=== PATIENT | male | born 1950 | race Caucasian/White ===

== ENCOUNTER 2023-07-25 20:44 | Emergency (ER) | payer MEDICARE, SELFPAY ==
[2023-07-25] VITALS (18 sets, daily range): BP systolic 102–143; BP diastolic 75–92; PULSE 75–95; TEMP 36.5; O2SAT 94–97; BMI 26.6
--- NOTE | 2023-07-25 21:05 | CT_ITS ---
The [address] [address] Patient Name: KUSHAL LY MRN: [id number] date: 1950 Sex: M Assigned Patient Location: ER Current Patient Location: ED.[facility] Accession/Order Number: [id number] Exam Date: 07/25/2023 21:38 Report Date: 07/25/2023 21:56 At the request of: TAN MARKER Procedure: CT head/brain wo con Head CT 07/25/2023 8:38 PM CDT History: recent head injury/ headache. x Comparison: None Technique: Unenhanced CT imaging of the head. This CT exam was performed using one or more of the following dose reduction techniques: Automated exposure control, adjustment of the mA and/or KV according to patient size, or use of iterative reconstruction technique. Findings: There is no evidence of acute intracranial abnormality. Specifically, there is no evidence of acute hemorrhage, infarct, contusion, hydrocephalus, midline shift, or abnormal extra-axial collection. The calvarium is intact. The paranasal sinuses and mastoid air cells are clear. CT/CT head/brain wo con Impression: 1. No acute intracranial abnormality. Electronically authenticated by: JUDY GUAMAN Date: 07/25/2023 21:56
[2023-07-25 21:27] LABS: Basophils Absolute Auto 0.1 10^3/uL (0.0-0.1); Basophils Percent Auto 0.5 % (0.2-2.0); Eosinophils Absolute Auto 0.3 10^3/uL (0.0-0.7); Eosinophils Percent Auto 2.5 % (0.9-7.0); Hematocrit 50.6 % (42.0-54.0); Hemoglobin 16.9 g/dL (14.0-18.0); Immature Granulocytes Abs Auto 0.04 10^3/uL (0.00-0.03); Immature Granulocytes Pct Auto 0.4 % (0.0-0.5); Lymphocytes Absolute Auto 1.1 10^3/uL (1.2-3.8); Lymphocytes Percent Auto 10.1 % (20.5-60.0); Mean Corpuscular HGB Conc 33.4 g/dL (29.9-35.2); Mean Corpuscular Hemoglobin 30.5 pg (25.9-34.0); Mean Corpuscular Volume 91.2 fL (80.0-94.0); Mean Platelet Volume 10.8 fL (9.5-13.5); Monocytes Absolute Auto 1.1 10^3/uL (0.3-0.8); Monocytes Percent Auto 10.4 % (1.7-12.0); Neutrophils Absolute Auto 8.2 10^3/uL (1.4-6.5); Neutrophils Percent Auto 76.1 % (43.0-75.0); Platelet Count 124 10^3/uL (150-450); Red Blood Count 5.55 10^6/uL (4.70-6.10); Red Cell Distribution Width 12.3 % (11.0-15.0); White Blood Count 10.8 10^3/uL (4.0-11.0)
--- NOTE | 2023-07-25 21:28 | ED.GENADUL1 ---
HPI HPI - General Adult General Chief complaint: Headache Stated complaint: Headache Time Seen by Provider: 07/25/23 20:51 Source: patient and EMR Mode of arrival: ambulance Limitations: no limitations History of Present Illness HPI narrative: This 73-year-old male who has a history of squamous carcinoma of the scalp and is being seen at [facility] and had a fall on Sunday at home in his bedroom when he fell and struck a bedside stand and was seen at [facility] for evaluation of a headache. Patient has a global headache. He had a normal CT scan done at [facility] on Sunday. He developed a headache earlier today. He has not had a fever. He has no focal weakness numbness or tingling. He has not had any nausea or vomiting. He does not have a history of chronic headaches. He also complains of some blurred vision. His pupils are constricted upon arrival. His vision is grossly intact. He is tearful. He has no neck pain or stiffness. He denies any chest pain or shortness of breath. According to his OARRS report he was given prescription for 15 Percocet upon leaving the emergency department and 2 Percocet to take home at that time. Related Data Home Medications ?Medication ?Instructions ?Recorded ?Confirmed aspirin 81 mg capsule 81 mg PO DAILY 07/25/23 07/25/23 atorvastatin 40 mg tablet 40 mg PO DAILY 07/25/23 07/25/23 bumetanide 1 mg tablet 3 mg PO BID 07/25/23 07/25/23 febuxostat 40 mg tablet 40 mg PO .once daily 07/25/23 07/25/23 levetiracetam 1,000 mg tablet 1,000 mg PO Q12H 07/25/23 07/25/23 metoprolol succinate 25 mg 25 mg PO .once daily 07/25/23 07/25/23 tablet,extended release 24 hr oxycodone-acetaminophen 5 mg-325 1 tab PO Q6H PRN pain 07/25/23 07/25/23 mg tablet pantoprazole 40 mg tablet,delayed 40 mg PO .once daily 07/25/23 07/25/23 release potassium chloride 20 mEq 40 meq PO BID 07/25/23 07/25/23 tablet,extended release sitagliptin phosphate 100 mg 100 mg PO DAILY 07/25/23 07/25/23 tablet (Januvia) zanubrutinib 80 mg capsule 160 mg PO BID 07/25/23 07/25/23 (Brukinsa) Allergies Allergy/AdvReac Type Severity Reaction Status Date / Time Sulfa (Sulfonamide Allergy Mild Verified 07/25/23 20:52 Antibiotics) sulfamethoxazole Allergy Mild Verified 07/25/23 20:52 [From Bactrim] trimethoprim [From Bactrim] Allergy Mild Verified 07/25/23 20:52 clindamycin Allergy Unknown Verified 07/25/23 21:39 metformin Allergy Unknown Verified 07/25/23 21:39 Opioid HPI Opioid Management Most Recent Opioid Data: No Data to Display Review of Systems ROS Status of ROS 10 or more systems reviewed and unremarkable except as noted in history and below Exam Narrative Exam Narrative: Vital signs and Nursing Notes reviewed: Vital signs are stable. The patient is afebrile with a normal pulse, blood pressure is mildly elevated at 143/84, he is not hypoxic with pulse ox of 96% on room air General: Awake, alert, oriented, no acute distress, lying on the stretcher with his face covered with a towel, GCS 15, no respiratory distress HEENT: There is a large defect in the scalp on the right side and a midline laceration with an eschar formation at the hairline of the scalp, mucous membranes are moist and pink, eyes are clear, normal conjunctiva, vision is grossly intact, posterior pharynx is normal in appearance. Neck: Supple, no meningeal signs, no anterior or posterior cervical lymphadenopathy Chest: Lungs are clear to auscultation with good air entry, there is no wheezing rhonchi or rales appreciated no accessory muscle use, patient is speaking in complete sentences-no chest wall tenderness to palpation CVS: Regular rate and rhythm S1-S2, no murmurs rubs or gallops, pulses are brisk and equal bilaterally ABD: Soft, nondistended, nontender, no rebound guarding or rigidity, bowel sounds are normal, no pulsatile masses appreciated Extremities: Moving all extremities, no lower extremity tenderness or swelling noted, negative Homans' sign, pulses are brisk and equal bilaterally Skin: Normal in appearance without rash,pallor, petechiae or purpura Neuro: No focal deficits, speech is clear, upper and lower extremity strength and sensation is intact, vision is grossly intact, no facial droop noted Constitutional Vital Signs, click to edit/add: Last Vital Signs Temp 97.7 F 07/25/23 20:47 Pulse 78 07/25/23 23:01 Resp 12 07/25/23 23:01 BP 111/92 H 07/25/23 23:01 Pulse Ox 97 07/25/23 22:10 O2 Del Method Room Air 07/25/23 20:47 Course Vital Signs Vital signs: Vital Signs Temperature 97.7 F 07/25/23 20:47 Pulse Rate 83 07/25/23 20:47 Respiratory Rate 16 07/25/23 20:47 Blood Pressure 143/84 H 07/25/23 20:47 Pulse Oximetry 96 07/25/23 20:47 Oxygen Delivery Method Room Air 07/25/23 20:47 Temperature 97.7 F 07/25/23 20:47 Pulse Rate 78 07/25/23 23:01 Respiratory Rate 12 07/25/23 23:01 Blood Pressure 111/92 H 07/25/23 23:01 Pulse Oximetry 97 07/25/23 22:10 Oxygen Delivery Method Room Air 07/25/23 20:47 Medical Decision Making [facility] Narrative Medical decision making narrative: This 73-year-old male who had a closed head injury with scalp laceration on Sunday and has a history of squamous cell carcinoma of the scalp presents for evaluation of ongoing headache with blurred vision. He was discharged home with a prescription for Percocet. He had taken 2 Percocet around 10 AM earlier in the day but no medication since. He has not had a fever. He has no neck pain or stiffness. His neuroexam was normal. He was medicated with a dose of morphine and Zofran and IV fluids. CT scan of the head was ordered and is negative for acute findings. Routine labs were also ordered and reviewed. He has a normal white count. Hemoglobin is elevated at 16.9. BUN and creatinine are elevated at 37 and 2.2. 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 He does not know his baseline creatinine. He stated that he did not have any relief from his morphine and Zofran and was medicated with the Fioricet and Percocet with more clinical improvement. His neuroexam remained normal while in the emergency department and he was discharged home. He does have follow-up with Dr. Martin, neurology. I encouraged his to follow-up with her soon as possible for further evaluation and treatment and return to the emergency department for worsening symptoms, confusion, any other neurologic symptoms or as needed. Medical Records Medical records narrative: The [address] [address] [address] Scan Report Signed Patient: KUSHAL LY MR#: [id number] : 1950 Acct:[id number] Age/Sex: 73 / M ADM Date: 07/25/23 Loc: ER Attending Dr: Ordering Physician: Magda Maharaj Date of Service: 07/25/23 Procedure(s): CT head/brain wo con Accession Number(s): [id number] cc: LUIS ALBERTO DARNELL ~ The [place] [address] Patient Name: KUSHAL LY MRN: [id number] date: 1950 Sex: M Assigned Patient Location: ER Current Patient Location: ED.MAIN Accession/Order Number: [id number] Exam Date: 07/25/2023 21:38 Report Date: 07/25/2023 21:56 At the request of: MAGDA MAHARAJ Procedure: CT head/brain wo con Head CT 07/25/2023 8:38 PM CDT History: recent head injury/ headache. x Comparison: None Technique: Unenhanced CT imaging of the head. This CT exam was performed using one or more of the following dose reduction techniques: Automated exposure control, adjustment of the mA and/or KV according to patient size, or use of iterative reconstruction technique. Findings: There is no evidence of acute intracranial abnormality. Specifically, there is no evidence of acute hemorrhage, infarct, contusion, hydrocephalus, midline shift, or abnormal extra-axial collection. The calvarium is intact. The paranasal sinuses and mastoid air cells are clear. CT/CT head/brain wo con Impression: 1. No acute intracranial abnormality. Electronically authenticated by: JUDY GUAMAN Date: 07/25/2023 21:56 Lab Data Labs: Lab Results 07/25/23 Range/Units 21:16 WBC 10.8 (4.0-11.0) 10^3/uL RBC 5.55 (4.70-6.10) 10^6/uL Hgb 16.9 (14.0-18.0) g/dL Hct 50.6 (42.0-54.0) % MCV 91.2 (80.0-94.0) fL MCH 30.5 (25.9-34.0) pg MCHC 33.4 (29.9-35.2) g/dL RDW 12.3 (11.0-15.0) % Plt Count 124 L (150-450) 10^3/uL MPV 10.8 (9.5-13.5) fL Neut % (Auto) 76.1 H (43.0-75.0) % Lymph % (Auto) 10.1 L (20.5-60.0) % [place] % (Auto) 10.4 (1.7-12.0) % Eos % (Auto) 2.5 (0.9-7.0) % Baso % (Auto) 0.5 (0.2-2.0) % Neut # (Auto) 8.2 H (1.4-6.5) 10^3/uL Lymph # (Auto) 1.1 L (1.2-3.8) 10^3/uL [place] # (Auto) 1.1 H (0.3-0.8) 10^3/uL Eos # (Auto) 0.3 (0.0-0.7) 10^3/uL Baso # (Auto) 0.1 (0.0-0.1) 10^3/uL Abs Immat Gran (auto) 0.04 H (0.00-0.03) 10^3/uL Imm/Tot Granulo (auto) 0.4 (0.0-0.5) % PT 10.9 (9.0-11.6) sec INR 1.03 Sodium 134 L (136-145) mmol/L Potassium 3.7 (3.5-5.1) mmol/L Chloride 98 (98-107) mmol/L Carbon Dioxide 28.9 (21.0-32.0) mmol/L Anion Gap 10.8 BUN 37.0 H (7.0-18.0) mg/dL Creatinine 2.22 H (0.70-1.30) mg/dL Est GFR ( Amer) 35 L (>=60) Est GFR (Non-Af Amer) 29 L (>=60) BUN/Creatinine Ratio 16.7 Glucose 158 H (74-106) mg/dL Calcium 9.3 (8.5-10.1) mg/dL Total Bilirubin 0.7 (0.2-1.0) mg/dL AST 18 (15-37) U/L ALT 25 (16-63) U/L Alkaline Phosphatase 156 H (46-116) U/L Total Protein 8.1 (6.4-8.2) g/dL Albumin 3.7 (3.4-5.0) g/dL Globulin 4.4 g/dL Albumin/Globulin Ratio 0.8 Discharge Plan Discharge Stand Alone Forms: Portal Instructions Chief Complaint: Headache Clinical Impression: Headache, Acute on chronic renal insufficiency Patient Disposition: Home, Self-Care Time of Disposition Decision: 22:25 Condition: Good Prescriptions / Home Meds: No Action aspirin 81 mg capsule 81 mg PO DAILY bumetanide 1 mg tablet 3 mg PO BID febuxostat 40 mg tablet 40 mg PO .once daily levetiracetam 1,000 mg tablet 1,000 mg PO Q12H metoprolol succinate 25 mg tablet extended release 24 hr 25 mg PO .once daily pantoprazole 40 mg tablet,delayed release (DR/EC) 40 mg PO .once daily Januvia 100 mg tablet 100 mg PO DAILY atorvastatin 40 mg tablet 40 mg PO DAILY Brukinsa 80 mg capsule 160 mg PO BID potassium chloride 20 mEq tablet extended release 40 meq PO BID oxycodone-acetaminophen 5-325 mg tablet 1 tab PO Q6H PRN (Reason: pain) Print Language: [place] Instructions: Chronic Kidney Disease (ED), Acute Headache (ED) Additional Instructions: Follow up with Dr Martin as soon as possible and your family doctor regarding your kidney function Referrals: LUIS ALBERTO DARNELL [Primary Care Provider] - 1 week Discharge Date/Time: 07/25/23 23:46
[2023-07-25] MEDS: ONDANSETRON PF 4 MG/2 ML VIAL IV (21:30)
[2023-07-25] MEDS: 0.9 % SODIUM CHLORIDE 1,000 ML 1000 ML IV (21:30)
[2023-07-25] MEDS: MORPHINE SULFATE 4 MG/ML VIAL IV (21:30)
[2023-07-25 21:37] LABS: Alanine Aminotransferase 25 U/L (16-63); Albumin Globulin Ratio 0.8; Albumin Level 3.7 g/dL (3.4-5.0); Alkaline Phosphatase 156 U/L (46-116); Anion Gap 10.8; Aspartate Amino Transferase 18 U/L (15-37); BUN Creatinine Ratio 16.7; Bilirubin Total 0.7 mg/dL (0.2-1.0); Calcium 9.3 mg/dL (8.5-10.1); Carbon Dioxide 28.9 mmol/L (21.0-32.0); Chloride 98 mmol/L (98-107); Estimated GFR (African America 35 (>=60); Estimated GFR (Non-African Ame 29 (>=60); Globulin 4.4 g/dL; Glucose 158 mg/dL (74-106); INR 1.03; Potassium 3.7 mmol/L (3.5-5.1); Prothrombin Time 10.9 sec (9.0-11.6); Sodium 134 mmol/L (136-145); Total Protein 8.1 g/dL (6.4-8.2)
[2023-07-25] MEDS: BUTALB/ACETAMINOPHEN/CAFFEINE 50-325-40MG TABLET 1 TAB PO (22:11)
[2023-07-25] MEDS: OXYCODONE HCL/ACETAMINOPHEN 5MG/325MG 1 TAB PO (22:11)
--- NOTE | 2023-07-25 23:50 | ECG_ITS ---
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
== END 2023-07-25 23:46 | disposition home or self-care (01) ==
PROVIDERS: Emergency Provider Emergency Medicine; PCP Family Medicine
DX: R51.9 Headache, unspecified (principal); N18.9 Chronic kidney disease, unspecified; Z85.828 Personal history of other malignant neoplasm of skin
CPT/HCPCS: 36415; 70450; 80053; 85025; 85610; 93005; 96374; 96375; 99285; J2270; J2405

== ENCOUNTER 2023-08-02 18:42 | Emergency (ER) | payer MEDICARE, SELFPAY ==
[2023-08-02 18:47] VITALS: BP 139/79; PULSE 87; TEMP 36.6; O2SAT 98; BMI 26.6
[2023-08-02 18:49] VITALS: BP 139/79
[2023-08-02 19:24] VITALS: BP 107/74
[2023-08-02 19:26] LABS: Basophils Absolute Auto 0.1 10^3/uL (0.0-0.1); Basophils Percent Auto 0.6 % (0.2-2.0); Eosinophils Absolute Auto 0.3 10^3/uL (0.0-0.7); Eosinophils Percent Auto 3.2 % (0.9-7.0); Hematocrit 53.5 % (42.0-54.0); Hemoglobin 17.3 g/dL (14.0-18.0); Immature Granulocytes Abs Auto 0.09 10^3/uL (0.00-0.03); Immature Granulocytes Pct Auto 0.9 % (0.0-0.5); Lymphocytes Absolute Auto 0.9 10^3/uL (1.2-3.8); Lymphocytes Percent Auto 8.6 % (20.5-60.0); Mean Corpuscular HGB Conc 32.3 g/dL (29.9-35.2); Mean Corpuscular Hemoglobin 30.1 pg (25.9-34.0); Mean Corpuscular Volume 93.2 fL (80.0-94.0); Mean Platelet Volume 11.4 fL (9.5-13.5); Neutrophils Absolute Auto 7.6 10^3/uL (1.4-6.5); Neutrophils Percent Auto 76.7 % (43.0-75.0); Platelet Count 143 10^3/uL (150-450); Red Blood Count 5.74 10^6/uL (4.70-6.10); Red Cell Distribution Width 12.7 % (11.0-15.0); White Blood Count 9.9 10^3/uL (4.0-11.0)
--- NOTE | 2023-08-02 19:29 | ED_ITS ---
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 The patient is on chemotherapy through [facility]. He has been on this chemotherapy for the past 2 years. He was diagnosed with Waldenstr?m's approximately 14 years ago. The patient states that for the past 2 years he has had intermittent numbness in his hands and face. He had an episode today in the left side of his face. He states the symptoms usually last time the 30 minutes but today it lasted longer. He went to the [facility]'s emergency department but after 2 hours of not being seen he drove to this emergency department. He was recently seen by his neurologist, Dr. Martin. She put him on [facility] ER for bedtime for headaches. The patient is not taking that because he read the side effect profile and decided against it. At this time the numbness has resolved. He denies any chest pain or shortness of breath. He denies any headache, blurred vision, slurred speech confusion or other neurologic symptoms at this time. Related Data Home Medications ?Medication ?Instructions ?Recorded ?Confirmed aspirin 81 mg capsule 81 mg PO DAILY 07/25/23 07/25/23 atorvastatin 40 mg tablet 40 mg PO DAILY 07/25/23 07/25/23 bumetanide 1 mg tablet 3 mg PO BID 07/25/23 07/25/23 febuxostat 40 mg tablet 40 mg PO .once daily 07/25/23 07/25/23 levetiracetam 1,000 mg tablet 1,000 mg PO Q12H 07/25/23 07/25/23 metoprolol succinate 25 mg 25 mg PO .once daily 07/25/23 07/25/23 tablet,extended release 24 hr oxycodone-acetaminophen 5 mg-325 1 tab PO Q6H PRN pain 07/25/23 07/25/23 mg tablet pantoprazole 40 mg tablet,delayed 40 mg PO .once daily 07/25/23 07/25/23 release potassium chloride 20 mEq 40 meq PO BID 07/25/23 07/25/23 tablet,extended release sitagliptin phosphate 100 mg 100 mg PO DAILY 07/25/23 07/25/23 tablet (Januvia) zanubrutinib 80 mg capsule 160 mg PO BID 07/25/23 07/25/23 (Brukinsa) Allergies Allergy/AdvReac Type Severity Reaction Status Date / Time Sulfa (Sulfonamide Allergy Mild Verified 07/25/23 20:52 Antibiotics) sulfamethoxazole Allergy Mild Verified 07/25/23 20:52 [From Bactrim] trimethoprim [From Bactrim] Allergy Mild Verified 07/25/23 20:52 clindamycin Allergy Unknown Verified 07/25/23 21:39 metformin Allergy Unknown Verified 07/25/23 21:39 Review of Systems ROS Status of ROS 10 or more systems reviewed and unremark able except as noted in history and below Exam Narrative Exam Narrative: Vital signs and Nursing Notes reviewed: Patient is afebrile with a normal pulse, blood pressure is minimally elevated at 139/79, he is not hypoxic with pulse ox of 98% on room air General: Awake, alert, oriented, no acute distress, lying comfortably on the stretcher GCS 15 HEENT: Normocephalic, healing laceration to the frontal aspect of the scalp with no sign of infection, large defect on the right side of the scalp status post squamous cell carcinoma removal Neck: Supple, no meningeal signs, no carotid bruits appreciated Chest: Lungs are clear to auscultation with good air entry, there is no wheezing rhonchi or rales appreciated no accessory muscle use, patient is speaking in complete sentences-no chest wall tenderness to palpation CVS: Regular rate and rhythm S1-S2, no murmurs rubs or gallops, pulses are brisk and equal bilaterally ABD: Soft, nondistended, nontender, no rebound guarding or rigidity, bowel sounds are normal, no pulsatile masses appreciated Extremities: Moving all extremities, no lower extremity tenderness or swelling noted, negative Homans' sign, pulses are brisk and equal bilaterally Skin: Chronic hyperpigmentation of the arms, patient states this is related to chemotherapy Neuro: Speech is clear, there is no facial droop, vision is grossly intact, ton loree and uvula are midline, 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 Negative pronator drift. Constitutional Vital Signs, click to edit/add: Last Vital Signs Temp 97.9 F 08/02/23 18:47 Pulse 87 08/02/23 18:47 Resp 18 08/02/23 18:47 BP 139/79 08/02/23 18:47 Pulse Ox 98 08/02/23 18:47 O2 Del Method Room Air 08/02/23 18:47 Course Vital Signs Vital signs: Vital Signs Temperature 97.9 F 08/02/23 18:47 Pulse Rate 87 08/02/23 18:47 Respiratory Rate 18 08/02/23 18:47 Blood Pressure 139/79 08/02/23 18:47 Pulse Oximetry 98 08/02/23 18:47 Oxygen Delivery Method Room Air 08/02/23 18:47 Temperature 97.9 F 08/02/23 18:47 Pulse Rate 87 08/02/23 18:47 Respiratory Rate 18 08/02/23 18:47 Blood Pressure 139/79 08/02/23 18:47 Pulse Oximetry 98 08/02/23 18:47 Oxygen Delivery Method Room Air 08/02/23 18:47 MDM - Neuro Symptoms/Deficit MDM Narrative Medical decision making narrative: This 73-year-old male with a 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 Earlier today had an episode of facial numbness that did not resolve and he presented to [facility]'s emergency department but was not seen. He brought himself to this emergency department. Upon arrival his symptoms had resolved. He was seen by m yself last week for headache after striking his head and sustaining a forehead laceration and concussion. He had followed up with Dr. Martin his neurologist who thinks that his headaches and intermittent blurred vision are related to the concussion. The patient is on Keppra for seizures. She had ordered Depakote for him to take at night but he read the side effect profile and declined to take it. In the emergency department his neuroexam is normal. I spoke to Dr. Martin who suggested that if he has a headache he could have a 500 mg Depakote infusion. The patient does not have a headache at this time and his neuroexam is normal. She suggest that he follow-up with her again in the office. We discussed the possibility of the patient having side effects from his chemotherapy as paresthesias and neuropathy are often related to chemotherapeutic medications. I did discuss this with the patient who states that he has been told in the past that the side effects are likely related to hi s chemotherapy and at 1 point his chemotherapy was changed and the chemotherapeutic agent he is on now he has been on for the past 2 years. We will not repeat his CT scan at this time. CT angio is not an option because the patient has renal insufficiency and last had a creatinine of 2.2. He will be given IV fluids and repeat labs will be ordered at this time. The patient is in agreement with this plan. He is not having any pain. NIH stroke scale is zero. I reviewed his labs. His labs are essentially normal with an improvement in his creatinine today at 1.84. Last week it was 2.2. Patient was reevaluated and remains neurologically stable. His is at the bedside. She admits that she does not know what to do when he has the symptoms because she is afraid he is having a stroke. I explained to her that the symptoms may be related to his chemotherapy and it would be in his best interest to discuss it with Dr. Lindsay. I explained that if the side effects of the chemotherapy are tolerable and the chemotherapy is controlling his disease it is likely in his best interest to continue on the chemotherapy but if the side effects are becoming intolerable he may need another treatment modality. At this time the patient is agreeable with this and will be discharged home. Lab Data Labs: Lab Results 08/02/23 Range/Units 19:05 WBC 9.9 (4.0-11.0) 10^3/uL RBC 5.74 (4.70-6.10) 10^6/uL Hgb 17.3 (14.0-18.0) g/dL Hct 53.5 (42.0-54.0) % MCV 93.2 (80.0-94.0) fL MCH 30.1 (25.9-34.0) pg MCHC 32.3 (29.9-35.2) g/dL RDW 12.7 (11.0-15.0) % Plt Count 143 L (150-450) 10^3/uL MPV 11.4 (9.5-13.5) fL Neut % (Auto) 76.7 H (43.0-75.0) % Lymph % (Auto) 8.6 L (20.5-60.0) % [place] % (Auto) 10.0 (1.7-12.0) % Eos % (Auto) 3.2 (0.9-7.0) % Baso % (Auto) 0.6 (0.2-2.0) % Neut # (Auto) 7.6 H (1.4-6.5) 10^3/uL Lymph # (Auto) 0.9 L (1.2-3.8) 10^3/uL [place] # (Auto) 1.0 H (0.3-0.8) 10^3/uL Eos # (Auto) 0.3 (0.0-0.7) 10^3/uL Baso # (Auto) 0.1 (0.0-0.1) 10^3/uL Abs Immat Gran (auto) 0.09 H (0.00-0.03) 10^3/uL Imm/Tot Granulo (auto) 0.9 H (0.0-0.5) % Sodium 136 (136-145) mmol/L Potassium 3.7 (3.5-5.1) mmol/L Chloride 98 (98-107) mmol/L Carbon Dioxide 29.3 (21.0-32.0) mmol/L Anion Gap 12.4 BUN 38.0 H (7.0-18.0) mg/dL Creatinine 1.84 H (0.70-1.30) mg/dL Est GFR ( Amer) 44 L (>=60) Est GFR (Non-Af Amer) 36 L (>=60) BUN/Creatinine Ratio 20.7 Glucose 195 H (74-106) mg/dL Calcium 9.1 (8.5-10.1) mg/dL Total Bilirubin 0.5 (0.2-1.0) mg/dL AST 20 (15-37) U/L ALT 32 (16-63) U/L Alkaline Phosphatase 166 H (46-116) U/L Troponin I High Sens 12.7 (4.0-76.1) pg/mL Total Protein 8.3 H (6.4-8.2) g/dL Albumin 3.6 (3.4-5.0) g/dL Globulin 4.7 g/dL Albumin/Globulin Ratio 0.8 Discharge Plan Discharge Stand Alone Forms: Portal Instructions Chief Complaint: Neuro Symptoms/Deficit Clinical Impression: Paresthesia Patient Disposition: Home, Self-Care Time of Disposition Decision: 20:30 Condition: Good Prescriptions / Home Meds: No Action aspirin 81 mg capsule 81 mg PO DAILY bumetanide 1 mg tablet 3 mg PO BID febuxostat 40 mg tablet 40 mg PO .once daily levetiracetam 1,000 mg tablet 1,000 mg PO Q12H metoprolol succinate 25 mg tablet extended release 24 hr 25 mg PO .once daily pantoprazole 40 mg tablet,delayed release (DR/EC) 40 mg PO .once daily Januvia 100 mg tablet 100 mg PO DAILY atorvastatin 40 mg tablet 40 mg PO DAILY Brukinsa 80 mg capsule 160 mg PO BID potassium chloride 20 mEq tablet extended release 40 meq PO BID oxycodone-acetaminophen 5-325 mg tablet 1 tab PO Q6H PRN (Reason: pain) Print Language: Portuguese Instructions: Paresthesia (ED) Referrals: LUIS ALBERTO DARNELL [Primary Care Provider] - 1 week
[2023-08-02 19:30] VITALS: BP 104/66
[2023-08-02 19:39] LABS: Alanine Aminotransferase 32 U/L (16-63); Albumin Globulin Ratio 0.8; Albumin Level 3.6 g/dL (3.4-5.0); Alkaline Phosphatase 166 U/L (46-116); Anion Gap 12.4; Aspartate Amino Transferase 20 U/L (15-37); BUN Creatinine Ratio 20.7; Bilirubin Total 0.5 mg/dL (0.2-1.0); Calcium 9.1 mg/dL (8.5-10.1); Carbon Dioxide 29.3 mmol/L (21.0-32.0); Chloride 98 mmol/L (98-107); Estimated GFR (African America 44 (>=60); Estimated GFR (Non-African Ame 36 (>=60); Globulin 4.7 g/dL; Glucose 195 mg/dL (74-106); Potassium 3.7 mmol/L (3.5-5.1); Sodium 136 mmol/L (136-145); Total Protein 8.3 g/dL (6.4-8.2)
[2023-08-02] MEDS: 0.9 % SODIUM CHLORIDE 1,000 ML 100 ML IV (19:40)
[2023-08-02 19:41] LABS: Troponin I High Sensitivity 12.7 pg/mL (4.0-76.1)
[2023-08-02 20:01] VITALS: BP 116/74
[2023-08-02 20:30] VITALS: BP 115/78
--- NOTE | 2023-08-02 22:14 | ECG_ITS ---
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
== END 2023-08-02 21:02 | disposition home or self-care (01) ==
PROVIDERS: Emergency Provider Emergency Medicine; PCP Family Medicine
DX: R20.2 Paresthesia of skin (principal); C88.0 Waldenstrom macroglobulinemia; Z79.899 Other long term (current) drug therapy
CPT/HCPCS: 36415; 80053; 84484; 85025; 93005; 99284

== ENCOUNTER 2024-12-26 03:29 | Emergency (ER) | payer MEDICARE, SELFPAY ==
--- OUTSIDE RECORDS SUMMARY | 2024-12-15 10:40 | XMS_ITS | Encounter Summary ---
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 Name Role Phone Denise Cade MD Unavailable [phone] Denise Cade MD Primary Care Provider [phone] Terrie Martin DO Unavailable [phone] Sarkis Raymundo MD Unavailable Denise Alarcon RN Unavailable [phone] Reason for Referral * Imaging (Routine) - AuthorizedSpecialtyDiagnoses / ProceduresReferred By ContactReferred To ContactRadiology Diagnoses Spinal stenosis at L4-L5 level Procedures MR lumbar spine wo contrast David Booker MD [address] [facility] [address] [address] Phone: tel: fax: [facility] [address] [place] [address] Phone: tel: fax: Referral IDStatusReasonStart DateExpiration DateVisits RequestedVisits [id number] Reason for Visit * ReasonCommentsthoracic outlet syndrome Encounter Details DateTypeDepartmentCare Team (Latest Contact Info)Enlaqxshpmy24/03/2025 10:40 AM ESTOffice Visit [facility] [address] [place] [address] David Booker MD [address] [facility] [address] [place], [place] [id number] Seizures (HCC) (Primary Dx); Gastroesophageal reflux disease with esophagitis without hemorrhage; Thoracic outlet syndrome of left thoracic outlet; Spinal stenosis at L4-L5 level Social History Tobacco UseTypesPacks/DayYears UsedDateSmoking Tobacco: FormerCigarettes Smokeless Tobacco: NeverAlcohol UseStandard Drinks/WeekCommentsNever0 (1 standard drink = 0.6 oz pure alcohol)Caffeine intake: 1 cups per dayPHQ-2Answer Date RecordedPatient Health Questionnaire-2 [id number] and Gender InformationValueDate RecordedSex Assigned at BirthNot on fileLegal SexMale 04/26/2022 7:10 PM EDTGender DjqlqjqpYlkk77/15/2023 7:10 PM EDTSexual OrientationNot on filedocumented as of this encounter Last Filed Vital Signs Vital SignReadingTime TakenCommentsBlood Nuckzlqe685/7611 10:37 AM EST Pulse--Temperature--Respiratory Rate--Oxygen Saturation--Inhaled Oxygen Concentration--Hdiwgw28.7 kg (178 lb)12/15/2024 10:37 AM OXCWijalj604.3 cm (5' 9 )12/15/2024 10:37 AM ESTBody Mass Index26.29102/15/2024 10:37 AM ESTdocumented in this encounter Progress Notes * David Booker MD - 12/15/2024 10:40 AM EST Subjective Harpreet Martinez is a 74 y.o. male who presents for thoracic outlet syndrome and post concussion syndrome. Patient was in hospital a couple weeks ago for pneumonia. States he was SOB. States they admitted him and released him on the . No episodes since January last year. Nothing since he was in hospital and hit him all of a sudden. History of Present Illness The patient presents for evaluation of thoracic outlet syndrome, Waldenstrom's macroglobulinemia, and diabetes mellitus type 2. He has been experiencing episodes of sudden onset weakness in his arm, which have been absent since01/2024. These episodes typically occur when he is seated, prompting him to change his seating arrangement. He also reports a sensation of muscle contraction in his face during these episodes. He hasundergone multiple stroke evaluations, all of which have returned negative results. He has not noticed any significant changes in his condition following the reduction of his Keppra dosage. He is currently on a regimen of Keppra 250 mg twice daily, although he occasionally misreads the label and isunsure if he takes the correct dosage. He has previously received injections for his condition, which he found beneficial. He has been performing home exercises as part of his therapy regimen. He is awaiting scheduling of a brain MRI at [facility]. 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 His Waldenstrom's numbers are elevated, leading to the discontinuation of his chemotherapy drug, Brukinsa. He is scheduled for a tooth extraction on but must remain off Brukinsa for 5 days prior to the procedure due to potential bleeding risks. He is currently awaiting consultation with Dr. Cuenca at the [facility] regarding his Waldenstrom's treatment. He is a type 2 diabetic with well-controlled blood sugar levels. He experienced a fall from his bed on 12/13/2024, resulting in a stiff neck. He also reports a recent episode of leg weakness, which he attributes to his hospitalization. He underwent back surgery [id number] and 2013. PAST SURGICAL HISTORY: Back surgery in 2009 and 2013 MEDICATIONS CURRENT MEDS: Keppra 250 mg Oral Once daily Pantoprazole Oral PREVIOUS MEDS: Keppra 250 mg twice daily Oral Twice daily Reason for Discontinuation: Dosage reduced Brukinsa Reason for Discontinuation: High numbers and bleeding risk before tooth removal Review of Systems Constitutional: Negative for chills, diaphoresis, fatigue and fever. HENT: Negative for ear pain, tinnitus and trouble swallowing. Eyes: Negative for photophobia and visual disturbance. Respiratory: Negative for cough and shortness of breath. Cardiovascular: Negative for palpitations and leg swelling. Gastrointestinal: Negative for abdominal pain and nausea. Genitourinary: Negative for difficulty urinating and urgency. Musculoskeletal: Negative for arthralgias, back pain, myalgias, neck pain and neck stiffness. Neurological: Negative for tremors, weakness, light-headedness and numbness. Psychiatric/Behavioral: Negative for agitation, confusion and suicidal ideas. Objective Height 5' 9 , weight 178 lb. Physical Exam Cranial Nerve Examination CN XI: 5/5 head turn and 5/5 shoulder shrug bilaterally. Motor Examination Strength: Weakness noted in the arm post-episode. Hand strength: able to curl fingers and push thumbs up. Vital Signs: Blood pressure: 120/68 mmHg. Neck: Neck is very stiff. Results Imaging - PET scan: No radiotracer tracer, lymph nodes unchanged Assessment & Plan 1. Thoracic Outlet Syndrome. Symptoms suggest thoracic outlet syndrome, particularly affecting the arm. A low-dose cortisone regimen of 2 mg tablets will be initiated for 10 days, with doses taken in the morning and at noon. Blood sugar levels will be monitored during this period. If there is no improvement, injections into the thoracic outlet will be considered. An MRI of the lumbar spine will be ordered to further investigate the cause of the leg weakness. 2. Waldenstrom's Macroglobulinemia. The patient reports high numbers associated with Waldenstrom's macroglobulinemia. He has been takenoff Brukinsa due to an upcoming tooth extraction and the need to avoid bleeding risks. Consultationwith Dr. Cuenca at the [facility] is pending for further management. If numbers remain high, alternative medications like Eliquis may be considered. 3. Diabetes Mellitus Type 2. Blood sugar levels are reported to be well-controlled. The patient will continue his current diabetes management plan. Blood sugar levels will be monitored closely during the cortisone treatment period. 4. Medication Management. A prescription for pantoprazole will be provided. The patient will continue taking Keppra 250 mg twice a day for one more week, after which it will be discontinued. Follow-up The patient will follow up in 6 to 8 weeks. 5. I will start the patient on dexamethasone 2 mg tablets to be taken in a tapering fashion over the next 7 to 9 days. I will see if this helps reduce inflammation and improves neurological function. 6. I will obtain an MRI of the lumbar spine to assess for a structural lesion including degenerative lumbar spine disease which may be contributing to the patient's symptoms. This clinical note was created utilizing [employer] system. All information has beenthoroughly reviewed, corrected as necessary, and authenticated by the provider to ensure accuracy and completeness. On occasion, [employer] ambient documentation system erroneously drops words or replaces aspoken word with a similar sounding word. Please notify with any questions or concerns regarding this clinical note. documented in this encounter Plan of Treatment DateTypeDepartmentCare Team (Latest Contact Info)Dvjboqsccdy02/22/2025 10:00 AM ESTOffice Visit [facility] [address] [place] [address] David Booker MD [address] [facility] [address] [place] [id number] 03/30/2025 8:30 AM ESTProcedure Visit [facility] [address] [facility] [place] [phone] Sarkis Lo DPD[place] [address] [place] [address] NameTypePriorityAssociated DiagnosesOrder ScheduleMR lumbar spine wo contrast ImagingRoutine Spinal stenosis at L4-L5 level Expected: 12/15/2024, Expires: 12/15/2025documented as of this encounter Visit Diagnoses Diagnosis Seizures (HCC)- Primary Other convulsions Gastroesophageal reflux disease with esophagitis without hemorrhage Thoracic outlet syndrome of left thoracic outlet Spinal stenosis at L4-L5 level documented in this encounter Additional Health Concerns AssessmentNoted TimePHQ-9 Depression Total Score: 2:00 PM EDT documented as of this encounter Care Teams Team MemberRelationshipSpecialtyStart DateEnd Date Denise Cade MD [address] [place], [place] [phone] PCP - Tino OR02/12/21 Denise Cade MD [address] [place] [address] PCP - GeneralFamily Medicine07/13/22 Terrie Martin DO [address] [place] [address] Referring PhysicianNeurology05/08/23 Sarkis Raymundo MD [address] [place] [address] Referring PhysicianNeurolog04/01/24 Denise Alarcon, RN [address] [place] [address] Registered NurseFamily Medicine07/24/24documented as of this encounter
--- OUTSIDE RECORDS SUMMARY | 2024-12-16 10:20 | XMS_ITS | Encounter Summary ---
Author Organization [facility] Address [address] [place] [address] Care Team Providers Care Tea Taster Name Role Phone Denise Cade MD Unavailable [phone] Denise Cade MD Primary Care Provider [phone] Terrie Martin DO Unavailable Sarkis Raymundo MD Unavailable [phone] Denise Alarcon RN Unavailable [phone] Reason for Visit * ReasonCommentsHospital Follow-up Encounter Details DateTypeDepartmentCare Team (Latest Contact Info)Euginxzfzud44/04/2025 10:20 AM ESTOffice Visit [facility] [address] [place] [address] Denise Cade MD [address] [place] [address] Type 2 diabetes mellitus without complication, with long-term current use of insulin (HCC) (PrimaryDx); Stage 3b chronic kidney disease (CMS-HCC); Pneumonia due to infectious organism, unspecified laterality, unspecified part of lung; Waldenstrom macroglobulinemia not having achieved remission (HCC); Radha-Adan syndrome Social History Tobacco UseTypesPacks/DayYears UsedDateSmoking Tobacco: FormerCigarettes Smokeless Tobacco: NeverAlcohol UseStandard Drinks/WeekCommentsNever0 (1 standard drink = 0.6 oz pure alcohol)Caffeine intake: 1 cups per dayPHQ-2Answer Date RecordedPatient Health Questionnaire-2 [id number] and Gender InformationValueDate RecordedSex Assigned at BirthNot on fileLegal SexMale 04/26/2022 7:10 PM EDTGender RaftbsguHlur08/15/2023 7:10 PM EDTSexual OrientationNot on filedocumented as of this encounter Last Filed Vital Signs Vital SignReadingTime TakenCommentsBlood Ofsjedms651/6011 10:19 AM EST Gdykw7990/04/2025 10:19 AM ESTTemperature--Respiratory Rate--Oxygen Saturation 96%12/16/2024 10:19 AM ESTInhaled Oxygen Concentration--Uvsrrj41.3 kg (166 lb) 12/16/2024 10:19 AM SGFXuxiwt020.3 cm (5' 9 )12/16/2024 10:19 AM ESTBody Mass Index24.51102/16/2024 10:19 AM ESTdocumented in this encounter Progress Notes * Denise Cade MD - 12/16/2024 10:20 AM ESTAssociated Problem(s): Stage 3b chronic kidney disease (CMS-HCC) Orders: Basic metabolic panel; Future * Denise Cade MD - 12/16/2024 10:20 AM ESTAssociated Problem(s): Pneumonia Orders: XR chest 2 views; Future * Denise Cade MD - 12/16/2024 10:20 AM ESTAssociated Problem(s): Radha-Adan syndrome Per neuro and oncology. Has an MRI tomorrow. * Denise Cade MD - 12/16/2024 10:20 AM EST Images from the original note were not included. Subjective ?Quick Links Last Note in Specialty Snapshot Edit RFV/CC Edit Screenings Current Meds Patient ID: Harpreet Martinez is a 74 y.o. male who presents for Hospital Follow-up. HPI Flowsheet Row Patient Outreach from 12/08/2024 in [facility] with Denise Alarcon RN Hospital Information ED, Hospital or Halfway Facility Discharge? Hospital Patient has been contacted within two business days of discharge Yes Diagnosis DX: Pneumonia, pulmonary htn, dyspnea on exertion. Discharge Date 12/05/24 Discharged To: Home Setting Discharge Hospital [facility] Engagement Call Start Time 1457 Admission Date 12/02/24 Medications Discharge medications reviewed and reconciled from hospital? Yes [New meds: Aspirin 81mg daily, sildenafil 20mg 3 x daily x 30 days azithromycin 500mg daily x 5 dys Cefuroxime axetil 500mg 2 x daily x 5 days.] Is the patient having any side effects they believe may be caused by any medication additions or changes? No Does the patient have all medications ordered at discharge? Yes Nursing Interventions Nurse provided patient education Nursing Interventions Nurse provided patient education Appointments Does the patient have a primary care provider? Yes [Pt has follow up with PCP Dr Cade 12/16/24 at 10:20am] Nursing Interventions Verified appointment date/time/provider Does the patient have any upcoming specialty appointments? Yes [[facility] for PET Scan 12/10/[address] Hilario 12/11/24 at 11:15am Cardiology Dr Durham 01/12/25 at 9:30am] Nursing Interventions Advised patient to keep appointment Self Management Does patient have home health? no Patient Teaching Does the patient have access to their discharge instructions? Yes Nursing Interventions Reviewed instructions with patient What is the patient's perception of their health status since discharge? Improving Is the patient/caregiver able to teach back the hierarchy of who to call/visit for symptoms/problems? PCP, Specialist, Home Health nurse, Urgent Care, ED, 911 Yes Wrap Up Wrap Up Additional Comments Pt to [facility] 12/02/24 - 12/05/24. He presented to the ER with progressive sob and pleuritic left side pain for over a week and a half. Also reported worsening swelling in left leg He was eval, treated and dc to home. He had labs and echocardiogram which revealed severe pulmonary htn. DX: Pneumonia, pulmonary htn, dyspnea on exertion. New meds: Aspirin 81mg daily, sildenafil 20mg 3 x daily x 30 days azithromycin 500mg daily x 5 dys Cefuroxime axetil 500mg 2 x daily x 5 days. Pt has follow up with PCP Dr Cade 12/16/24 at 10:20am [facility] for PET Scan 12/10/[address] Hilario 12/11/24 at 11:15am Cardiology Dr Durham 01/12/25 at 9:30am Call End Time 1515 History of Present Illness The patient presents for evaluation of pneumonia, diabetes mellitus, lymphedema, and dental issues. He continues to experience chest tightness, although it has lessened. He reports the presence of blood in his mucus when he coughs deeply. He was admitted to the hospital on 12/02/2024. He has completed his course of antibiotics. He has not yet received the RSV vaccine but has been vaccinated against pneumonia and influenza. His cancer markers have increased, leading Dr. Flynn to discontinue his Brukinsa medication. He was scheduled for a tooth extraction but has decided to postpone the procedure due to concerns about potential coughing during the procedure. Dr. Flynn is currently consulting with Dr. Cuenca regarding an alternative medication. He has been advised to limit his fluid intake to 1500 mL per day, which he finds challenging. His GFR was recorded as 42 during his hospital stay. He is currently on a steroid regimen and has been informed that this could potentially elevate his blood sugar levels. His sensor is due for replacement today, but he prefers to delay this until after his MRI. He has requested a blood sugar test during this visit and plans to monitor his levels via fingerstick until he can replace the sensor. He requires a refill of his Januvia prescription. He has an appointment with Dr. Flores at [facility] in [place] next week and hopes to obtain a prescription for a compression sock for his leg. He has an MRI of the brain scheduled for tomorrow. He saw Dr. Booker yesterday, who prescribed Keppra 250 mg and advised him to stop it in a week from yesterday. Dr. Booker also plans to administer injections in his shoulders. His symptoms worsen at night, and his speech deteriorates, requiring him to consciously think about his words. He was tested for a stroke after experiencing numbness in his arm and face, but the results were negative. He has not had an episode since 01/2024. He also experienced difficulty opening and closing his left eye one night. The numbness even went down into the legwhen he came home from the hospital. Dr. Booker thinks maybe something might be going in the back because of the leg. He does not sleep well, often waking up at 3:00 or 5:00 AM. He continues to struggle with speech and word-finding difficulties, which are intermittent. He had difficulty swallowing this morning, but it improved as the day progressed. He feels he lacks control over his hand strength, often dropping papers he is holding. His pain prescription ran out about a month ago, but he has since resumed it. He fell out of bed on Sunday night, injuring his head and back. Sleep: He does not sleep well, often waking up at 3:00 or 5:00 AM. ?Quick Review Review Full History Edit History Meds - Current Medications[1] --- PMH - Atherosclerosis of [place] coronary artery without angina pectoris Atrial fibrillation (HCC) Atrial fibrillation (HCC) Atypical angina Benign essential hypertension Radha-Adan syndrome Brachial neuritis or radiculitis Carpal tunnel syndrome Cervicalgia Chronic kidney disease, stage 2 (mild) Chronic rhinitis Diabetes (HCC) Difficulty walking Disturbance of skin sensation Encounter for other specified aftercare Gastro-esophageal reflux disease without esophagitis Hypertension Lymphangitis Migraines Mixed hyperlipidemia Muscle spasm Nonrheumatic aortic valve stenosis Other sequelae of cerebral infarction Paroxysmal atrial fibrillation (HCC) Plantar wart, left foot Primary malignant neoplasm of blood vessel (HCC) Radiculopathy, lumbosacral region Seizure disorder (HCC) Seizures (HCC) SOB (shortness of breath) Squamous cell skin cancer 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 Avoid pulling in long tables of results. Comment on relevant results to support your medical decision making. BP 118/60 Pulse 84 Ht 5' 9 Wt 166 lb BMI 24.51 kg/m?? Physical Exam Physical Exam General Appearance: Normal. Vital signs: Within normal limits. HEENT: Within normal limits. Respiratory: Clear to auscultation, no wheezing, rales or rhonchi. Cardiovascular: Regular rate and rhythm, no murmurs, rubs, or gallops. Back, Musculoskeletal: Tightness in neck and shoulder muscles with limited range of motion. Extremities: edema of all 4 extremities, stockings in place, palpable pulses. Skin: Warm and dry, no rash. Neurological: Patient demonstrates difficulty with speech and word-finding. Noted tightness in neckand shoulder muscles with limited range of motion in the neck. Psychiatric: Normal. ?Quick Links Full Problem List Allergy Asthma Cardiology CHF Diabetes GI Headache Hypertension Assessment & Plan Type 2 diabetes mellitus without complication, with long-term current use of insulin (HCC) Orders: SITagliptin (Januvia) 100 MG tablet; Take 1 tablet (100 mg) by mouth Daily POCT glucose Stage 3b chronic kidney disease ([facility]-HCC) Orders: Basic metabolic panel; Future Pneumonia due to infectious organism, unspecified laterality, unspecified part of lung Orders: XR chest 2 views; Future Waldenstrom macroglobulinemia not having achieved remission (HCC) Seeing Dr Vik. Garcia-Adan syndrome Per neuro and oncology. Has an MRI tomorrow. Assessment & Plan 1. Pneumonia: - Tightness in the chest persists but is not as severe. Coughing produces blood in mucus. - PET scan shows pneumonia in the right lower lobe. - Follow-up chest x-ray will be conducted today to ensure complete resolution. - Antibiotics course has been completed. 2. Diabetes Mellitus: - Blood sugar will be tested via fingerstick today. Blood draw for metabolic panel will be done to check kidney function. - Januvia refill will be provided. 3. Lymphedema: - [facility] discuss prescription for compression sock for the leg. 4. Dental issues: - Advised to consult with the dentist regarding the necessity of tooth extraction due to recent pneumonia and ongoing coughing and swallowing difficulties. 5. Medication Management: - Currently on 250 mg of Keppra, which will be discontinued in a week. Steroids prescribed, which may affect blood sugar levels. Blood sugar will be monitored with finger pokes until a new sensor is placed. 6. Unspecified numbness: - Numbness persists, affecting speech, swallowing, and hand strength. - MRI of the brain scheduled for tomorrow to investigate neurological symptoms. [1] aspirin 81 MG EC tablet atorvastatin (Lipitor) 40 MG tablet bumetanide (Bumex) 1 MG tablet cholecalciferol (Vitamin D-3) 50 MCG (2000 UT) tablet Continuous Glucose Rod Hanger (FreeStyle Fracisco 3 [place]) device Continuous Glucose Sensor (FreeStyle Fracisco 3 Plus Sensor) misc dexAMETHasone (Decadron) 2 MG tablet empagliflozin (Jardiance) 25 MG febuxostat (Uloric) 40 MG tablet ferrous sulfate 325 (65 Fe) MG tablet Januvia 100 MG tablet levETIRAcetam (Keppra) 250 MG tablet OneTouch Ultra test strip pantoprazole (ProtoNix) 40 MG EC tablet potassium chloride CR (K-Tab) 20 MEQ ER tablet sildenafil (Viagra) 50 MG tablet thiamine (Vitamin B-1) 100 MG tablet zanubrutinib (Brukinsa) 80 MG chemo capsule azithromycin (Zithromax) 500 MG tablet cefuroxime (Ceftin) 500 MG tablet documented in this encounter Plan of Treatment DateTypeDepartmentCare Team (Latest Contact Info)Vwcmpwstlyz00/22/2025 10:00 AM ESTOffice Visit [facility] [address] [place] [address] David Booker MD [address] [place] [address] 03/30/2025 8:30 AM ESTProcedure Visit [facility] [address] [place] [id number] Sarkis Lo, DPM [address] [place], [place] [id number] documented as of this encounter Procedures Procedure NamePriorityDate/TimeAssociated DiagnosisCommentsPOCT GLUCOSERoutine 12/16/2024 10:59 AM EST Type 2 diabetes mellitus without complication, with long-term current use of insulin (HCC) BASIC METABOLIC RUIJIFmqxgpt91/04/2025 10:58 AM EST Stage 3b chronic kidney disease ([facility]-HCC) documented in this encounter Results * XR chest 2 views (12/16/2024 11:25 AM EST)Anatomical RegionLateralityModality ChestRadiographic ImagingSpecimen (Source)Anatomical Location / Laterality Collection Method / VolumeCollection TimeReceived Time12/16/2024 5:06 PM EST Impressions 12/16/2024 5:07 PM EST No acute radiographic findings. ELECTRONICALLY SIGNED BY: Tom Green MD Narrative 12/16/2024 5:07 PM EST EXAMINATION/TECHNIQUE: XR CHEST 2 VIEWS HISTORY: Pneumonia. COMPARISON: 03/26/2023. RESULT: No distinct focal consolidation. No large pleural effusion. No pneumothorax. Stable cardiomediastinal silhouette with postsurgical changes. No acute osseous findings. Degenerative changes. Median sternotomy. Procedure Note Tom Green MD - 12/16/2024 EXAMINATION/TECHNIQUE: XR CHEST 2 VIEWS HISTORY: Pneumonia. COMPARISON: 03/26/2023. RESULT: No distinct focal consolidation. No large pleural effusion. Nopneumothorax. Stable cardiomediastinal silhouette with postsurgicalchanges. No acute osseous findings. Degenerative changes. Mediansternotomy. IMPRESSION: No acute radiographic findings. ELECTRONICALLY SIGNED BY: Tom Green MD Authorizing ProviderResult TypeResult StatusJeanette KLINE XR PROCEDURES Final Result * POCT glucose (12/16/2024 10:59 AM EST)ComponentValueRef RangeTest Method Analysis TimePerformed AtPathologist SignatureGlucose Blood, KHP368et/dL Specimen (Source)Anatomical Location / LateralityCollection Method / Volume Collection TimeReceived TimeBloodCapillary blood specimen / Iecotiw6412/16/2024 10:59 AM EST Narrative Authorizing ProviderResult TypeResult StatusDenise Cade MDPOINT OF CARE TEST ENTER/EDIT ORDERABLESFinal Result * (ABNORMAL) Basic metabolic panel (12/16/2024 10:58 AM EST)ComponentValueRef RangeTest MethodAnalysis TimePerformed AtPathologist LsxdrrmdzBoqzyvk870(H)65 - 99 mg/dLQUESTComment: ? Fasting reference interval For someone without known diabetes, a glucose value >125 mg/dL indicates that they may have diabetes and this should be confirmed with a follow-up test. BUN33(H)7 - 25 mg/dLQUESTCreatinine1.64(H)0.70 - 1.28 mg/lRUBFDZRYOM67(L)> OR = 60 mL/min/1.66l0JZJEGVVS/CREATININE IEUDU620 - 22 (calc)FREKOZfwfmt040(L)135 - 146 mmol/LQUESTPotassium, Bld4.13.5 - 5.3 mmol/JDHJAVBmxdbipp49(L)98 - 110 mmol/LQUESTCarbon Nzkwbmq3018 - 32 mmol/LQUESTCalcium9.38.6 - 10.3 mg/dLQUEST Specimen (Source)Anatomical Location / LateralityCollection Method / Volume Collection TimeReceived TimeBloodVenous blood specimen / Etmwjwg7012/16/2024 10:58 AM EST12/16/2024 10:58 AM EST Narrative Resulting Agency Comment Performing Organization Information ?Site ID: [id number] ?Name: [facility] ?Address: [address] [place] [id number] ?Director: Placido Mas MD Authorizing ProviderResult TypeResult StatusDenise Cade MDGREENWOOD COUNTY [facility]ITAL BLOOD ORDERABLESFinal ResultPerforming OrganizationAddressCity/State/ZIP CodePhone Number QUEST documented in this encounter Visit Diagnoses Diagnosis Type 2 diabetes mellitus without complication, with long-term current use of insulin (HCC)- Primary Stage 3b chronic kidney disease (CMS-HCC) Pneumonia due to infectious organism, unspecified laterality, unspecified part of lung Waldenstrom macroglobulinemia not having achieved remission (HCC) Radha-Adan syndrome Other specified disorder of nervous system Pneumonia due to infectious organism, unspecified laterality, unspecified part of lung documented in this encounter Additional Health Concerns AssessmentNoted TimePHQ-9 Depression Total Score: 2:00 PM EDT documented as of this encounter Care Teams Team MemberRelationshipSpecialtyStart DateEnd Date Denise Cade MD [address] [place] [address] PCP - [place] MA02/12/21 Denise Cade MD [address] [place] [address] PCP - GeneralFamily Medicine07/13/22 Terrie Martin DO [address] [place] [address] Referring PhysicianNeurology05/08/23 Sarkis Raymundo MD [address] [place] [address] Referring PhysicianNeurolog04/01/24 Denise Alarcon, JUAN JOSE [address] [place] [address] Registered NurseFamily Medicine07/24/24documented as of this encounter
--- OUTSIDE RECORDS SUMMARY | 2024-12-16 11:00 | XMS_ITS | Encounter Summary ---
Author Organization [facility] Address [address] [place] [address] Care Team Providers Care Icebox Man Name Role Phone Denise Cade MD Unavailable [phone] Denise Cade MD Primary Care Provider [phone] Terrie Martin DO Unavailable [phone] Sarkis Raymundo MD Unavailable [phone] Denise Alarcon RN Unavailable [phone] Encounter Details DateTypeDepartmentCare Team (Latest Contact Info)Abfzodnagta01/04/2025 11:00 AM ESTAncillary Procedure [facility] [address] [place] [address] Pneumonia due to infectious organism, unspecified laterality, unspecified part of lung Social History Tobacco UseTypesPacks/DayYears UsedDateSmoking Tobacco: FormerCigarettes Smokeless Tobacco: NeverAlcohol UseStandard Drinks/WeekCommentsNever0 (1 standard drink = 0.6 oz pure alcohol)Caffeine intake: 1 cups per dayPHQ-2Answer Date RecordedPatient Health Questionnaire-2 [id number] and Gender InformationValueDate RecordedSex Assigned at BirthNot on fileLegal SexMale 04/26/2022 7:10 PM EDTGender BwpihoftRofz07/15/2023 7:10 PM EDTSexual OrientationNot on filedocumented as of this encounter Plan of Treatment DateTypeDepartmentCare Team (Latest Contact Info)Vudvddqimhv59/22/2025 10:00 AM ESTOffice Visit [facility] [address] [place] [address] David Booker MD [address] [facility] [facility] [address] [address] 03/30/2025 8:30 AM ESTProcedure Visit [facility] [address] [id number] Sarkis Lo, DPDallas [address] [place], [place] [id number] documented as of this encounter Procedures Procedure NamePriorityDate/TimeAssociated DiagnosisCommentsXR CHEST 2 VIEWS Lahdytm0612/16/2024 11:25 AM EST Pneumonia due to infectious organism, unspecified laterality, unspecified part of lung documented in this encounter Results * XR [...] Tom Green MD Authorizing ProviderResult TypeResult StatusJeanette Cade MDIMG XR PROCEDURES Final Result documented in this encounter Visit Diagnoses Diagnosis Pneumonia due to infectious organism, unspecified laterality, unspecified part of lung documented in this encounter Additional Health Concerns AssessmentNoted TimePHQ-9 Depression Total Score: 2:00 PM EDT documented as of this encounter Care Teams Team MemberRelationshipSpecialtyStart DateEnd Date Denise Cade MD [address] [place] [address] PCP - [place] MA02/12/21 Denise Cade MD [address] [place] [address] PCP - GeneralFamily Medicine07/13/22 Terrie Martin DO [address] [place] [address] Referring PhysicianNeurology05/08/23 Sarkis Raymundo MD [address] [place] [address] Referring PhysicianNeurolog04/01/24 Denise Alarcon, JUAN JOSE [address] [place] [address] Registered NurseKnoxville Hospital And Clinicsly Medicine07/24/24documented as of this encounter
--- OUTSIDE RECORDS SUMMARY | 2024-12-19 02:39 | XMS_ITS | Continuity of Care Document ---
Author Organization [facility] Address [address] [place] [address] Phone Care Team Providers Care Sparker [employer]cher Name Role Phone Denise Black MD Primary Care Pr ovider Maci Temple MD Attending Provider Acacia Long DO Emergency Provider [phone] Geoff Edmondson MD Admit Provider Boone Bautista MD Attending Provider [phone] Sulaiman Gomez MD Attending Provider Reynold Herbert DO Emergency Provider Care Teams Patient Care Team Team Status: Active Member Role/Relationship Status Dates Denise Cade MD Primary Care Provide r Active Visit Care Team Team Status: Inactive Member Role/Relationship Status Dates Denise Cade MD Primary Care Provider Active Start: November End: November 25Andres Cerrato ProviderActiveStart: November 25, 2024 End: November 25, 2024 Visit Care Team Team Status: Inactive Member Role/Relationship Status Dates Denise Cade MD Primary Care Provider Active Start: November End: December 05, 2024Janice L Rice , DOEmergency ProviderActiveStart: December 02, 2024 End: December 05, 2024Nishnickie Edmondson MDAdmit ProviderActiveStart: December 02, 2024 End: December 05, 2024Velasqueznicholas MoctezumaMARC jonesttending ProviderActiveStart: December 02, 2024 End: December 05, 2024 Visit Care Team Team Status: Inactive Member Role/Relationship Status Dates Denise Cade MD Primary Care Provider Active Start: December End: December 17, 2024Vivecatalino Liz MARC Gomezttending ProviderActiveStart: December 17, 2024 End: December 17, 2024 Patient Care Team Team Status: Inactive Member Role/Relationship Status Dates Denise Cade MD Primary Care Provider Active Start: December End: December 19lexdoron Herbert DOEmergenhuy ProviderActiveStart: December 19, 2024 End: December 19, 2024 Chief Complaint and Reason for Visit Chief Complaint Admit Date 6 month f/u November 25, 2024 9 :35am chest pain, sob December 02, 2024 1 2:38pm G96.89 C83.00 D80.1 D61.89 N18.32 Novemb er 2024 7:57am Numbness December 19, 2024 4 :00am Reason for Visit Admit Date Chronic kidney disease, stage 3b November 25, 2024 9:35am 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 November 25, 2024 9:35am Hyperparathyroidism November 25, 2024 9 :35am Hyperuricemia November 25, 2024 9 :35am Iron deficiency November 25, 2024 9 :35am Volume overload November 25, 2024 9 :35am Waldenstrom's macroglobulinemia November 25, 2024 9:35am Anemia November 25, 2024 9 :35am Coronary artery disease November 25 9:35am Hypokalemia November 25, 2024 9 :35am Waldenstrom's macroglobulinemia December 02, 2024 12:38pm Chest pain December 02, 2024 1 2:38pm Hypokalemia December 02, 2024 1 2:38pm Pneumonia December 02, 2024 1 2:38pm Reason for Referral Type Reason(s) Provider Provider Contact Information Femi lux Address Start Date FOLLOW UP FOR PET SCANFollow up and labsFOLLOW UP FOR PET SCANCCF [facility] CareWork Phone: [phone] [facility] [id number] Durham MDEmail: [email or web address] Phone: [phone] [address] [address]Lux have been scheduled for a follow up appointment for the following date and time, please call to reschedule if needed.Denise Cade MDWork Phone: [phone] [facility] [address]Wosfwc up and labsVivek Patricia Hill MDWork Phone: [phone] [facility] [address]Dszmwvfb Duyen Cade MDWork Phone: [phone] [facility] [address] Health Concerns Concerns Start Date A [facility] screening has identified you as FRAIL or AT RISK FOR FRAILTY. This puts you at a higher risk for infection, illness, falls, and other injuries. Here are four ways to help you reduce your risk of frailty: 1. IDENTIFY EARLY SIGNS OF FRAILTY ??? Discuss contributing factors and concerns with your doctor 2. BE ACTIVE ??? Walking and light strengthening exercises will help reduce weakness 3. EAT WELL ??? Aim for three healthy meals a day that are high in protein 4. THINK POSITIVE ??? Keep your mind active by being sociable and continuing to learn References: Stay Strong: Four Ways to Beat the Frailty Risk https://www.[facility].org/health/orwpgpbb-gsh-ieblhrowfy/fxuq-qejcuc-cxva- kjtf-kh-loup-the-fra ilty-risk Allergies, Adverse Reactions, Alerts Allergen Type Severity Reaction Last Updated Verified Status clindamycin Allergy Mild Itching December 19, 2024 4:20am Yes Active metformin Allergy Unknown Nausea December 19, 2024 4:20am Yes Active Sulfa (Sulfonamide Antibiotics) Allergy Unknown Itching December 19, 2024 4:20am Yes Active sulfamethoxazole Allergy Unknown Hives December 19, 2024 4:20am Yes Active trimethoprim Allergy Unknown Hives December 4:20am Yes Active Social History Smoking Status Status Start Date End Date Date of Observa tion Ex-smoker (finding) December 19, 2024 5:37am Observation Status Observation Response Date of Response Legal Sex Male (finding) Sex Assigned At BirthMaleMay 1950 Social History Assessments Assessment Value Date Recorded SDOH Follow up December 05, 2024 11:52amQuestionAnswerDate RecordedHas the SDOH screening changed since admission?NOctober 2024 11:52am Assessment Value Date Recorded SDOH Follow up December 03, 2024 6:12pmQuestionAnswerDate RecordedHas the SDOH screening changed since admission?NOctober 2024 6:12pm Family History Relationship Condition Age at Onset Recorded Date/T shaylee mother Myocardial infarction Unknown fatherMyocardial infarctionUnknownCoronary artery thrombosisUnknownbrother Malignant neoplasmUnknownfatherDeceasedUnknownmotherHypertensionUnknownDeceased Unknown Problems Active Problems Problem Diagnosis/Recorded Date Onset Date Status C trinoaugie Chronic kidney disease, stage 3b November 13, 2023 9:26am Unknown Active Waldenstrom's macroglobulinemiaApril 2020 3:34pmUnknownActiveProblem List clean-up per request of Phys. EHR CmteRenal massDecember 2023 7:59pm UnknownActiveVaricose veins of both legs with edemaMarch 2023 1:02pm UnknownActiveHyperparathyroidismApril 2024 8:11amUnknownActive HyperuricemiaOctober 2023 9:33amUnknownActiveDiabetic nephropathy associated with type 2 diabetes mellitusOctober 2023 9:26amUnknownActive Left arm weaknessNovember 2024 7:06amUnknownActiveNeck painNovember 2024 7:06amUnknownActiveVolume overloadOctober 2023 9:27amUnknownActiveIron deficiencyOctober 2023 9:27amUnknownActiveInactive/Resolved Problems Problem Diagnosis/Recorded Date Onset Date Status C trinoaugie LAISHA (acute kidney injury) July 17, 2022 9:04am Unknown Resolved Problem Li st clean-up per request of Phys. EHR Cmte Impaired mobility and activities of daily living August 22, 2023 2:08pm Unknown Resolved EpistaxisJune 2020 12:06pmUnknownResolvedProblem List clean-up per request of Phys. EHR CmteShortness of breathMay 2022 8:16amUnknownResolvedProblem List clean-up per request of Phys. EHR CmteDizzinessJuly 2023 11:30pm UnknownResolvedDizzinessAugust 2023 3:04pmUnknownResolvedDysarthriaJuly 2023 11:30pmUnknownResolvedDiabetesApril 2020 3:32pmUnknownResolved Problem List clean-up per request of Phys. EHR CmteLacerationSeptember 2022 12:04pmUnknownResolvedAcute dyspneaApril 2022 10:32amUnknownResolved Problem List clean-up per request of Phys. EHR CmteFall from slip, trip, or stumbleJune 2023 4:22amUnknownResolvedConcussionJune 2023 4:22am UnknownResolvedCoronary artery diseaseSeptember 2021 2:24pmUnknownResolved Problem List clean-up per request of Phys. EHR CmteCHF (congestive heart failure)May 28, 2022 10:32amUnknownResolvedProblem List clean-up per request of Phys. EHR CmtePostcardiotomy syndromeApril 2022 2:55amUnknownResolved Problem List clean-up per request of Phys. EHR CmteAnemiaApril 2022 11:27amUnknownResolvedProblem List clean-up per request of Phys. EHR CmteAortic stenosisSeptember 2021 3:00pmUnknownResolvedProblem List clean-up per request of Phys. EHR CmteAtaxiaJuly 2023 11:30pmUnknownResolvedContusion June 02, 2023 10:37pmUnknownResolvedTIA (transient ischemic attack)November 02, 2021 2:24pmUnknownResolvedProblem List clean-up per request of Phys. EHR CmteSuperficial laceration of scalpJune 2023 4:22amUnknownResolvedElevated troponinSeptember 2021 2:20amUnknownResolvedProblem List clean-up per request of Phys. EHR CmteLeptomeningeal enhancement on MRI of brainSeptember 2021 2:00pmUnknownResolvedProblem List clean-up per request of Phys. EHR CmteMicrocytic anemiaApril 2022 11:28amUnknownResolvedProblem List clean- up per request of Phys. EHR CmteAcute bronchitisDecember 2016 7:11pm UnknownResolvedProblem List clean-up per request of Phys. EHR CmteScreening for colorectal cancerJune 2020 9:47amUnknownResolvedProblem List clean-up per request of Phys. EHR CmteS/P CABG x 1April 2022 2:55amUnknownResolved Problem List clean-up per request of Phys. EHR CmteAcute left-sided weakness November 02, 2021 6:41pmUnknownResolvedProblem List clean-up per request of Phys. EHR CmteStrain of neck muscleJanuary 2017 10:55pmUnknownResolved Problem List clean-up per request of Phys. EHR CmteParoxysmal atrial fibrillationSeptember 2021 2:19amUnknownResolvedProblem List clean-up per request of Phys. EHR CmteHistory of Waldenstrom's macroglobulinemiaAugust 2023 3:05pmUnknownResolvedHistory of colonic polypsApril 2022 11:28am UnknownResolvedProblem List clean-up per request of Phys. EHR CmteGERD (gastroesophageal reflux disease)May 28, 2020 3:36pmUnknownResolvedProblem List clean-up per request of Phys. EHR CmteBarretts esophagusApril 2022 11:28amUnknownResolvedProblem List clean-up per request of Phys. EHR CmteChest painOctober 2024 12:09pmUnknownResolvedChest painSeptember 2021 1:11amUnknownResolvedProblem List clean-up per request of Phys. EHR Cmte HypertensionSeptember 2021 6:41pmUnknownResolvedProblem List clean-up per request of Phys. EHR CmtePneumoniaOctober 2024 12:09pmUnknownResolved DehydrationJune 2022 9:04amUnknownResolvedProblem List clean-up per request of Phys. EHR CmteHypokalemiaOctober 2024 12:09pmUnknownResolvedHypokalemia October 31, 2021 2:20amUnknownResolvedProblem List clean-up per request of Phys. [facility] CmteSprain of footApril 2023 10:37pmUnknownResolved Medications Medication Status Dose Units Route Directions Qty Days Refills S tart Date Stop Date End Date Reason(s) Instructions Adherence Pantoprazole 40 mg tablet,delayed release (DR/EC) Discontinued 40 MG PO Once 30 30 11 Apr 2023 1:07pm August 20, 2023 5:31pmDextromethorphan Polistirex (Delsym 12 Hour) 30 mg/5 mL Suspension,Extended Rel 12 TgYdadyozuocna24FLMDU78D as needed for CoughDecember 2016 12:00amJanuary 2017 9:19pmAtorvastatin 20 mg TabletDiscontinued 20MGPODailyDecember 2016 12:00amSeptember 2021 10:16am Dextromethorphan-Guaifenesin (Coricidin Hbp) 10-200 mg CapsuleDiscontinued February 05, 2017 12:00amJanuary 2017 9:19pmAmlodipine 10 mg Tablet Uehgkhcdnhao68WRUVRsnijKwdlelnf 2016 12:00amApril 2020 3:43pm Pantoprazole 40 mg Tablet,Delayed Release (Dr/Ec)Hfzsajqwpoqf09SXVVBeiyk morning February 05, 2017 12:00amMarch 2023 1:07pmIbuprofen (Motrin Ib) 200 mg BveihvCwtlnzxhngoc289ROOLL6A as needed for PainDecember 2016 12:00am March 05, 2017 9:19pmAspirin 81 mg Tablet,ZbiylrvzXzvgcsmnqbgy39TUSSMbqth February 05, 2017 12:00amSept2021 8:00amON HOLD X 1 WEEKLosartan 100 mg QbnoueLfqjabgfhsbo158NEKADjxaaJcrraizh 25th, 2017 12:00amApril 2020 3:45pmAtenolol 50 mg EpmrgsKflgviockxas96PXITChdglAbwpdkej 25th, 2017 12:00am November 01, 2021 10:16amIbrutinib (Imbruvica) 140 mg PdumphbKpvlhpszpmjl358 MGPODailyDece2016 12:00amSept2021 10:15amOn Hold: per Dr LindsayPrednisone 20 mg dpmffpHgbcsiioucjf56JSWYQltew757Dpeptjys 25th, 2017 12:002016 12:002016 12:03amadminister with food or milkPromethazine-Codeine 6.25-10 mg/5 mL rpoliTqvxhrgtvthd9SXZLM8J as needed for nollx1179AjdqzyjqFebruary 05, 2017 12:00amJanuary 2017 9:17pm Azithromycin (Zithromax) 250 mg bzqxorMorbkpxhbgmr373MCCTZlrss056Mcduuikk 25th, 2017 12:00amDecember 2016 12:00ce2016 12:03amstart on day 2 of therapyFlecainide 100 mg AmpwqnYgejrzkygznz754LKGEN49S as needed for Atrial FibrillationJun2020 11:00pmSept2021 10:16amFluticasone Furoate-Vilanterol (Breo Ellipta) 200-25 mcg/dose Blister With Device Nikaxddonxet6VLRALNJCBKRRLW77UNily 3rd, 2021 11:00pmJune 2020 11:12am Losartan-Hydrochlorothiazide 100-12.5 mg wmvvutWpwkttyxkepr0HXKHUAsfiuNxewr 2020 11:00pmSept2021 10:16amSitagliptin Phosphate (Januvia) 100 mg ddhkqfYmdwzl395XTOTQwsmdXoomt 2020 11:00pmUnknownHydrocortisone 1 % RxdcbFmidttrzxnfi8XNIYNPXDIZJFBEcosp times qnqyi97Fygrqhvaz 27th, 2022 11:00pm May 26, 2022 6:44amAspirin (Children's Aspirin) 81 mg Tablet,Chewable Aqubhucbrabg54EDCGQekly38Uijoaiafs 2021 11:00pmMarch 2023 10:08amon hold for a week r/t scheduled lumbar punctureMetoprolol Tartrate 37.5 mg Tablet Kgfjgblgjisw47THBWCpulp qdwll2356Baqogigmp 27th, 2022 11:00pmApril 2022 6:44amLevetiracetam 500 mg BqyqmtNenlpxgkjdjq1316OCWWAyjiz wovep055Qlrqffpkq 27th, 2022 11:00pmMarch 2023 10:04amAcetaminophen 650 mg Tablet Vghdycbyouxm361TSBXM5Z as needed for PainApril 2022 11:00pmJuly 11, 2022 9:09amDocusate Sodium (Colace) 100 mg ApuvwzgCwlkjymhdffc158ZYIWLpnnuOmouk 2022 11:00pmJuly 11, 2022 9:09amOxycodone 5 mg XnuzwrAysjqztjhriw3KPPFH5Q as needed for PainApril 2022 11:00pmMay 2022 9:10amZanubrutinib 80 mg StlbaktEokvgz421AOWOPtadt dailyApril 2022 11:00pmUnknownLosartan 50 mg guftsdDtzpntaukmdc02JPQBIynik dailyApril 2022 6:43amMarch 2023 10:05amMetoprolol Tartrate 37.5 mg puogocFojrdtlrbude70.5MGPOTwice dailyApril 2022 6:43amApril 2023 10:25pmPotassium Chloride 10 mEq tablet extended otvwmbhJmyevzdsknie71TRDIATrqhnNfh 29th, 2023 11:00pmOctober 2023 9:13amPotassium Chloride 10 mEq tablet extended elgnefbQxhlxejzpizb57TIUVHSrwww July 10, 2022 11:00pmMay 2022 9:11amPotassium Chloride 10 mEq tablet extended oakmltbHcpjzzraukkj85NNBWPCrjnmLhv 29th, 2023 11:00pmMay 2022 9:10amFebuxostat 40 mg gvbnbbDpvbjq62NRLIAeqtoTyuc 2023 11:00pmUnknown Oxycodone-Acetaminophen (Percocet) 5-325 mg tabletDiscontinued1 - 2TABPOEvery 6 hours as needed for cnbo9042Zdep 2023July 2023 5:30pmConcussion Fall on same level from slipping, tripping or stumbling Concussion with loss of consciousness status unknown, initial encounter Ondansetron 4 mg tablet,xvnoskigmuirbnJcmxwaghaoso0POBSU0H as needed for nausea and oihzjihd980Laqn 2023 11:00pmJuly 2023 5:30pmPantoprazole 40 mg tablet,delayed release (DR/EC)Ijcnypzkomna44AMOOXgwdnEhci 2023 11:00pm November 25, 2024 8:39amMethocarbamol 750 mg NpnuhgVkmqniyzwtep917UGMNZ1U as needed for PainJanuary 2017 12:00amApril 2020 3:44pmFluticasone Furoate-Vilanterol (Breo Ellipta) 200-25 mcg/dose Blister With Device Isccokwyjnve5GLFBJSIAQWFQYCezetTbovulh 2017 12:00amApril 2020 3:43pm Oxycodone-Acetaminophen (Percocet) 5-325 mg nffxdvSqscsnkswtgc8SSXFYA0N as needed for sayo9958Yoxeiiq 2017January 2017 12:00amJanuary 2017 12:03amStrain of muscle, fascia and tendon at neck level, initial encounter Fluticasone Furoate-Vilanterol (Breo Ellipta) 200-25 mcg/dose Blister With RheetiKlpfcuodpojr8FZWIXFIQJWFXJJezfvUmnwqbiww 18th, 2022 11:00pmSeptember 2021 11:30amLosartan 50 mg LgymrpEgkfnkxvqcib237FYXTJkuud737808Ralrhsijz 19th, 2022 11:00pmApril 2022 6:44amAtorvastatin 40 mg DjzgwyTkcapu83ZMDOGtvdm zpjnalc983803Ffyinsdxt 19th, 2022 11:00pmUnknownAmiodarone 200 mg Tablet Cwgwwseybqzp219VFTCSlyve insmp942772Ftrbttrrr 19th, 2022 11:00pmApril 2022 6:44amMetoprolol Tartrate 50 mg AccxgwEomreelowctp27WBCILotfx onkou210571 October 31, 2021 11:00pmSeptember 2021 2:55pmBumetanide 1 mg tablet Gcujagdlykzt1VHHPZfpop41878Jiwhs 2022 11:00pmJune 2022 8:42amNaproxen Sodium (Aleve) 220 mg sajhjkTgckiwcdmrxv239LKMBZewnz daily as needed for pain30 140April 2022 11:00pmJune 2022 8:42amLosartan 50 mg tablet Hmoihmwibtrf96RAXOIloaz2752Rafta 2022 11:00pmJune 2022 8:41am Metolazone 2.5 mg tabletDiscontinued2.5MGPODailyJune 2022 11:00pmMarch 2023 10:05amBumetanide 2 mg kwrqahPlpyfvmsjcls5LIXAFxlicYjhn 2022 11:00pmMarch 2023 10:08amNaproxen Sodium (Aleve) 220 mg Capsule Flcteuqvjubd681KESTAfutvJeqq 2022 11:00pmMarch 2023 10:05amBumetanide 1 mg jbdetdPjpyaupavecu7DGDYHqzozolIzfh 2022 8:42amMarch 2023 10:08am Bumetanide 2 mg yjcxlyPosgxcajsvle0CNUKFshxc dailyMarch 2023 10:03amApril 2023 10:24pmBumetanide 1 mg aqfdqvQhzhrq2PGQVFxlov dailyMarch 2023 10:04amUnknownMetoprolol Succinate 25 mg tablet extended release 24 hr Dqzetzovyguj01.5MGPODailyApril 2023 11:00pmOctober 2023 9:17am Gabapentin 100 mg nuoscceUajtbmzhmtjj054CYHGGjvts dailyApril 2023 11:00pm July 23, 2023 2:31amIbuprofen 800 mg guzeemIeuonzhzjhnf667LPANOgcyq times daily as needed for Dknr225Cklne2023 11:00pmJuly 2023 5:30pm Metoprolol Succinate 25 mg tablet extended release 24 gfYzwoalvmfuyl23.5MGPO.Q48 November 13, 2023 9:14amApril 2024 8:08amMeclizine (Antivert) 50 mg tablet Axxxutqovjmz72DMJSEehtk daily as needed for ffeeyecry308Udagng 2023 11:00pm November 13, 2023 9:15amOndansetron 4 mg tablet,sbapqptlzyiizoMopxveyxammm1AFTM Every 8 qualz3543Oqgtna 2023 11:00pmOctober 2023 9:15amLevetiracetam 250 mg eabmbeOetdmf115DCNLAwfbp dailyOctober 2024 11:00pmUnknownAspirin (Children's Aspirin) 81 mg Tablet,LugyiummCrvqpv44MNKYYcqxc79Fynunjj 2024 11:00pmUnknownSildenafil (Pulm.Hypertension) 20 mg IrktgoIdqjks40HSCMNmqdb times tuafg353790Vkpsqna 2024 11:00pmUnknownAzithromycin (Zithromax) 500 mg pnxbaeBdpgdl876KZFZXecob627Uhghwdd 2024 11:00pmUnknownCefuroxime Axetil 500 mg lpnkduDpixjt085OHQHNxozy qndny2188Qhluqli 2024 11:00pmUnknown Aspirin (Children's Aspirin) 81 mg tablet,txwuidetMjsbhwhzzvjc59EQLKsixmm week April 26, 2023 10:01amOctober 2024 8:38amsundayLevetiracetam (Keppra) 1,000 mg ounzijEvuqtqovnrxp4678DEWANxdib 12 hoursMarch 2023 11:00pmApril 2024 8:08amEmpagliflozin (Jardiance) 25 mg fxyssmYavfyg81FPHVBisvqSxnpk 2023 11:00pmUnknownCholecalciferol (Vitamin D3) 50 mcg (2,000 unit) qwonezwSvxrbu42JGXBRYaimdKajdb 2023 11:00pmUnknownFerrous Sulfate 325 mg (65 mg iron) zvcvmuXblvmj722LIJKLoqncLxoag 2023 11:00pmUnknownPotassium Chloride 20 mEq tablet,ER particles/shxfofrtNryxqkcjvabe83TQRYAZhphqVipbtdasa 2023 11:00pmApril 2024 8:10amAmoxicillin 500 mg kgrllzmKmmgst9572BJ PO.COMPLEXSeptember 2023 11:00pm2,000 mg orally 1 hour before dental cleaning;UnknownLevetiracetam (Keppra) 500 mg vnausyUplsbiojvxhl953FKHCLqiqk 12 hoursApril 2024 11:00pmOctober 2024 8:40amTizanidine 4 mg tablet Tiavrvvpoywr8LDHRZwazz at bedtime as neededApr2024 11:00pmOctober 2024 8:40amPotassium Chloride 20 mEq tablet extended yaadihcPyjbfb58SOWNQxcabs June 09, 2024 11:00pmUnknown Immunizations Immunization Event Date Not Given Reason Dose Number Prototype Engineer Lot Number Reason(s) Given Vaccine Information Statement (VIS) Detail Administration Location COVID-19 mRNA, Comirnaty (PubCoder) March 18, 2020 COVID-19 mRNA, Comirnaty (PubCoder)April 13OVID mRNA, Comirnaty (PubCoder)November 20OVID-19 mRNA, Comirnaty (PubCoder)May 31, 2021 Tetanus, Diphtheria, Pertussis (Tdap)October 294996li8w5PqenlsygzHol[facility] Procedures Procedure Date Performed Status CT angio chest PE protocol December 02, 2024 9: 18am completed US venous duplex LE BI December 03, 2024 9:31am completed CT head stroke alert wo con December 05, 2024 3 :31am completed Blood Culture December 02, 2024 completed Blood Culture December 02, 2024 completed Aerobic Culture December 03, 2024 completed Gram Stain December 03, 2024 completed MR head/brain wo/w con December 17, 2024 8:05am completed CT cervical spine wo con December 19, 2024 4:24 am active Relevant Diagnostic Tests and/or Laboratory Data Laboratory Results Test Collection Date/Time Result Date/Time Result Interpretation Reference Range Result Comment Performing Site Corrected White Blood Count December 05, 2024 3:34am December 05, 2024 3:48am 5.6 10*3/uL 4.1-10.5[facility] [id number] [address] [facility] [address]Vmaudmkys White Blood CountNovember 2024 4:30amNovember 2024 4:45am8.0 10*3/uL4.1-10.5F[facility] [id number] [address] [facility] [address]Zbrknbzdgil WBC CountOctober 2024 3:34amOctober 2024 3:48am5.6 10*3/uL4.1-10.5F[facility] [id number] [address] [place] [address] 611[address]Yvcupqmtwzo WBC CountNov2024 4:30amNovember 2024 4:45am8.0 10*3/uL4.1-10.5F[facility] [id number] [address] [facility] [address]Pmp Blood CountOctober 2024 3:34amOctober 2024 3:48am3.20 10*6/uLBelow low normal3.90-5.60[facility] [id number] [address] [facility] [address]Tri Blood CountNovember 2024 4:30amNovember 2024 4:45am3.39 10*6/uLBelow low normal3.90-5.60[facility] [id number] [address] [facility] [address]WatjodgxiiBufylwo 2024 3:34amOctober 2024 3:48am9.6 g/dLBelow low thlbyf70.0-17.0[facility] [id number] [address] [place] [address]SrlhjonksmYvamgkdh 2024 4:30amNovember 2024 4:45am 10.2 g/dLBelow low vamnlq94.0-17.0[facility] [id number] [address] [place] [address] 04186AekusxgztySybvgsh 2024 3:34amOctober 2024 3:48am 28.6 %Below low bhatzc25.8-50.0[facility] [id number] [address] [place] [address] 52854IcijtzeycpYdbhzwss 2024 4:30amNovember 2024 4:45am 29.8 %Below low xxpweh50.8-50.0[facility] [id number] [address] [place] [address] 36[address]Hvcj Corpuscular VolumeOctober 2024 3:34amOctober 2024 3:48am89.2 fL83.5-101[facility] [id number] [address] [place] [address]77[address]Lpgv Corpuscular VolumeNovember 2024 4:30amNovember 2024 4:45am88.0 fL83.5-101[facility] [id number] [address] [place] [address] 630[address]Bpse Corpuscular HemoglobinOctober 2024 3:34amOctober 2024 3:48am30.1 pg27.5-35.2FSelect [facility] [id number] [address] [place] [address] 04772Rxxr Corpuscular HemoglobinNovember 2024 4:30amNovember 2024 4:45am30.0 pg27.5-35.2F[facility] [id number] [address] [place] [address] 43590Ftql Corpuscular Hemoglobin ConcentOctober 2024 3:34am December 05, 2024 3:48am33.7 g/dL32.5-35.6F[facility] [id number] [address] [facility] [address]Esnb Corpuscular Hemoglobin ConcentNovember 2024 4:30am December 19, 2024 4:45am34.1 g/dL32.5-35.6F[facility] [id number] [address] [facility] [address]Kco Cell Distribution WidthOctober 2024 3:34amOctober 2024 3:48am14.5 %12.0-14.8[facility] [id number] [address] [facility] [address]Ziq Cell Distribution WidthNovember 2024 4:30amNovember 2024 4:45am15.2 %Above high qmzyga81.0-14.8[facility] [id number] [address] [facility] [address]Muebplgv CountOctober 2024 3:34amOctober 2024 3:32ga942 10*3/aZ740-574LzmmmugueHolzer Medical Center – [facility] Ctr [id number] [address] [place] [address] 20805Hftwsukt CountNov2024 4:30amNovember 2024 4:52fp521 10*3/rF759-781XahaencumHolzer Medical Center – [facility] Ctr [id number] [address] [place] [address] 188[address]Cmrj Platelet VolumeOctober 2024 3:34amOctober 2024 3:48am8.4 fL6.6-10.1FSelect [facility] [id number] [address] [facility] [address]Rdbx Platelet VolumeNovember 2024 4:30amNovember 2024 4:45am8.0 fL6.6-10.1FSelect [facility] [id number] [address] [facility] [address]Auxrlkpq Distribution WidthOctober 2024 10:12amOctober 2024 11:06am25.58 %Above high normal0.00-20.00The predictive value of MDW for identifying sepsis in patients with hematological abnormalities hasnot been establishedHolzer [facility] [id number] [address] [facility] [place] [address]Xsyrfmwf Distribution WidthDecember 19, 2024 4:30amNove2024 5:28am28.06 %Above high normal0.00-20.00The predictive value of MDW for identifying sepsis in patients with hematological abnormalities hasnot been establishedHolzer Medical Center [facility]tr [id number] [address] [facility] [place] [address]Thiqljwjdah (%) (Auto)December 05, 2024 3:34amOctober 2024 4:37[facility] [id number] [address] [facility] [place] [address]Epjpaxnhalp (%) (Auto)December 19, 2024 4:30amNovemb2024 5:28[facility] [id number] [address] [facility] [place] [address]Ojpcpcvkejr (%) (Auto)December 05, 2024 3:34amOctober 2024 4:37[facility] [id number] [address] [facility] [place] [address]Yvvuyqbaqfu (%) (Auto)December 19, 2024 4:30amNovember 2024 5:28[facility] [id number] [address] [facility] [place] [address]Rzxhealsl (%) (Auto)December 05, 2024 3:34amOctober 2024 4:37[facility] [id number] [address] [facility] [place] [address]Cylqxxqzt (%) (Auto)December 19, 2024 4:30amNovember 2024 5:28amN/[facility] [id number] [address] [facility] [place] [address]Cwzvomrlbju (%) (Auto)December 05, 2024 3:34amOctober 2024 4:37amN/[facility] [id number] [address] [facility] [place] [address]Vcjwgljckjm (%) (Auto)December 19, 2024 4:30amNovember 2024 5:28[facility] [id number] [address] [facility] [place] [address]Npanwufjk (%) (Auto)December 05, 2024 3:34amOctober 2024 4:37[facility] [id number] [address] [facility] [place] [address]Ytvrdqwan (%) (Auto)December 19, 2024 4:30amNove2024 5:28[facility] [id number] [address] [facility] [place] [address]Ewezyacrw RBC Relative Count (auto)December 05, 2024 3:34am December 05, 2024 4:37[facility] [id number] [address] [facility] [place] [address]Avyjlzjtq RBC Relative Count (auto)December 19, 2024 4:30am December 19, 2024 5:28[facility] [id number] [address] [facility] [place] [address]Juvidsfhfut # (Auto)December 05, 2024 3:34amOctober 2024 4:37[facility] [id number] [address] [facility] [place] [address]Cylkhaxjlxw # (Auto)December 19, 2024 4:30amNovemb2024 5:28[facility] [id number] [address] [facility] [place] [address]Iwkqjiturib # (Auto)December 05, 2024 3:34amOctober 2024 4:37[facility] [id number] [address] [facility] [place] [address]Ztzmxpgvftq # (Auto)December 19, 2024 4:30amNovember 2024 5:28[facility] [id number] [address] [facility] [place] [address]Tnxsbzdsn # (Auto)December 05, 2024 3:34amOctober 2024 4:37[facility] [id number] [address] [facility] [place] [address]Tyiojdzec # (Auto)December 19, 2024 4:30amNovemb2024 5:28amN/[facility] [id number] [address] [facility] [address]Jophlyteqjx # (Auto)December 05, 2024 3:34amOctober 2024 4:37amN/[facility] [id number] [address] [facility] [address]Odgksjgdldx # (Auto)December 19, 2024 4:30amNovember 2024 5:28amN/[facility] [id number] [address] [facility] [address]Egpolmfyf # (Auto)December 05, 2024 3:34amOctober 2024 4:37amN/[facility] [id number] [address] [facility] [address]Hyvevaldc # (Auto)December 19, 2024 4:30amNovember 2024 5:28amN/[facility] [id number] [address] [facility] [address]Jrnzmdvzu NeutrophilsOct2024 3:34amOctober 2024 4:37am88 %Above high zaixvx13-36Raxxpejnj[facility] [id number] [address] [facility] [address]Vjrcievql NeutrophilsNovember 2024 4:30amNovemb2024 5:28am88 %Above high arlaql90-03JhezkmnreHolzer Medical Center – [facility] [id number] [address] [facility] [address]Vkmq Neutrophils %December 04, 2024 2:15amOctober 2024 3:59am5 %0-5F[facility] [id number] [address] [facility] [address]Oahuhsywyxi %December 05, 2024 3:34amOctober 2024 4:37am 2 %Below low -59GkcrnehvnHolzer Medical Center [facility] [id number] [address] [facility] [address]Dguighsrwfq %December 19, 2024 4:30amNovember 2024 5:28am 1 %Below low fxerrz80-05RvmsefpciHolzer Medical Center – [facility] [id number] [address] [facility] [address]Alpcfmkh LymphocytesNovember 2024 4:30amNovember 2024 5:28am1 %0-12[facility] [id number] [address] [facility] [address]Nzmoevjkl %December 05, 2024 3:34amOctober 2024 4:37am8 %2-11[facility] [id number] [address] [facility] [address]Qpzbhtklt %December 19, 2024 4:30amNovember 2024 5:28am11 %2-11[facility] [id number] [address] [facility] [address]Ojmighdimva %December 04, 2024 2:15amOctober 2024 3:59am 1 %1-3F[facility] [id number] [address] [facility] [address]Bulvaeval %December 05, 2024 3:34amOctober 2024 4:37am2 %0-2F[facility] [id number] [address] [facility] [address]Dodahbyemvxnkg %December 05, 2024 3:34amOctober 2024 4:37am1 %Above high normal0-0[facility] [id number] [address] [facility] [address]Tsr Blood Cell MorphologyOctober 2024 3:34amOctober 2024 4:37amN/[facility] [id number] [address] [facility] [address]Bmw Blood Cell MorphologyNovember 2024 4:30amNovember 2024 5:28amN/[facility] [id number] [address] [facility] [address]CfjnrrxdxgkudDkwqehu 2024 3:34amOctober 2024 4:37am SlightHol[facility] [id number] [address] [facility] [address]HvuhydflyhsxnOqqgblin 2024 4:30amNovember 2024 5:28am [facility] [id number] [address] [facility] [address]NmelsuonecdlxZgkjwxw 2024 3:34amOctober 2024 4:37am [facility] [id number] [address] [place] [address]ZhcjihtwlgfzkyLidxehk 2024 2:15amOctober 2024 3:59amSlightHolzer Medical Center – [facility] [id number] [address] [place] [address]OoodngtazfemMaiptzhs 2024 4:30amNovember 2024 5:28am [facility] [id number] [address] [place] [address]OurlcqgylyojArmrmxpg 2024 4:30amNovember 2024 5:28am [facility] [id number] [address] [place] [address]Ammkft CellsOctober 2024 2:15amOctober 2024 3:59am [facility] [id number] [address] [place] [address]Uppncbdv EstimateOctober 2024 3:34amOctober 2024 4:37amNormalNormBlanchard [facility] [id number] [address] [place] [address]Lpecisyp EstimateNovember 2024 4:30amNovember 2024 5:28amNormalNormBlanchard Valley Health [facility] [id number] [address] [place] [address]Mhngn PlateletsOctober 2024 2:15amOctober 2024 3:59am11 /100{WBC}[facility] [id number] [address] [place] [address]Qgpmk PlateletsNovember 2024 4:30amNovember 2024 5:28am1 /100{WBC}[facility] [id number] [address] [place] [address] 137[address]Bkluaqfq Morphology CommentOctober 2024 3:34amOctober 2024 4:37amN/[facility] [id number] [address] [place] [address]Craewrpj Morphology CommentNovember 2024 4:30amNovember 2024 5:28amN/AFSelect [facility] [id number] [address] [facility] [address]Quira PlateletsOctober 2024 3:34amOctober 2024 4:[facility] [id number] [address] [facility] [address]Nxyzq PlateletsNovember 2024 4:30amNovember 2024 5:28[facility] [id number] [address] [facility] [address]Cxebumcbmbn TimeOctober 2024 9:32amOct2024 10:10am15.5 sAbove high normal9.0-12.9A hematocrit value greater than 55% may lead to inaccurate results in coagulation testing. Patientshaving hematocrit values >55% require a special collection tube for coagulation studies. Please c ontact the laboratory at [phone] for redraw instructions.[facility] [id number] [address] [facility] [address]Jmiksruww Time International RatioOctober 2024 9:32am December 02, 2024 10:10am1.4INR Therapeutic Range A) Pre- and Peroperative OAT started two weeks before surgery. NOT HIP SURGERY: 1.5 - 2.5 HIP SURGERY: 2 - 3B) Primary and secondary prevention of venous THROMBOSIS: 2 - 3C) Active venous thrombosis, pulmonary embolismand prevention of recurrent venous thrombosis: 2 - 3D) Prevention of arterial thromboembolismincluding patients with mechanical heart valves: 3 - 4.5F[facility] [id number] [address] [facility] [address]Wjxtsah LevelOctober 2024 3:34amOctober 2024 4:05am 132 mg/dLAbove high lruspu88-074PYB recommended reference rangeRandom Glucose Reference Range is dependent on time and content of last meal. Glucose of more than 200 mg/dL in a nonstressed, ambulatory subject supports the diagnosisof Diabetes Mellitus.[facility] [id number] [address] [facility] [address]Ihnvjjd LevelNovember 2024 4:30amNovember 2024 5:06am 134 mg/dLAbove high -995EUM recommended reference rangeRandom Glucose Reference Range is dependent on time and content of last meal. Glucose of more than 200 mg/dL in a nonstressed, ambulatory subject supports the diagnosisof Diabetes Mellitus.[facility] [id number] [address] [facility] [address]Wvxhz Urea NitrogenOctober 2024 3:34amOctober 2024 4:05am31 mg/dLAbove high normal-[facility] [id number] [address] [facility] [address]Amqvh Urea NitrogenNov2024 4:30amNovember 2024 5:06am45 mg/dLAbove high normal7-[facility] [id number] [address] [facility] [address]BuaoxxwxnqSbkpsvo 2024 3:34amOctober 2024 4:05am 1.72 mg/dLAbove high normal0.70-1.30[facility] [id number] [address] [facility] [address]44ZtfznrdzmqJlhvwnwn 7th, 2025 4:30amNovember 2024 5:06am 1.72 mg/dLAbove high normal0.70-1.30[facility] [id number] [address] [facility] [address]Xywueaqzm GFR (CKD-EPI)December 05, 2024 3:34amOctober 2024 4:05am40.942 mL/MinHolzer Medical Center – [facility] [id number] [address] [facility] [address]Jyqupaivi GFR (CKD-EPI)December 19, 2024 4:30amNovember 2024 5:06am40.942 mL/MinHolzer Medical Center – [facility] [id number] [address] [facility] [address]Tnpflr LevelOctober 2024 3:34amOctober 2024 4:05am 135 mmol/LBelow low vdyswh734-207RjewcnovsHolzer Medical Center – [facility] [id number] [address] [facility] [address]Eerrmb LevelNovember 2024 4:30amNovember 2024 5:06am 133 mmol/LBelow low tatave712-879VbjrwxmkhHolzer Medical Center – [facility] [id number] [address] [facility] [address]Dsctkkqsk LevelOctober 2024 3:34amOctober 2024 4:05am4.2 mmol/L3.5-5.1F[facility] [id number] [address] [facility] [address]Jzduqwygz LevelNovember 2024 4:30amNovember 2024 5:06am4.2 mmol/L3.5-5.1F[facility] [id number] [address] [facility] [place] [address]Sjgejhgb LevelOctober 2024 3:34amOctober 2024 4:05am99 mmol/B90-296FapnzgvozHolzer Medical Center – [facility] [id number] [address] [facility] [address]Exrsnvym LevelNovember 2024 4:30amNovember 2024 5:06am94 mmol/LBelow low xzffqo95-245ZrqmemtsmHolzer Medical Center – [facility] [id number] [address] [facility] [address]Goudnj Dioxide LevelOctober 2024 3:34amOctober 2024 4:05am29.0 mmol/L21.0-31.0[facility] [id number] [address] [facility] [address]Xioayx Dioxide LevelNovember 2024 4:30amNovember 2024 5:06am29.9 mmol/L21.0-31.0[facility] [id number] [address] [facility] [place] [address]Glznj GapOctober 2024 3:34amOctober 2024 4:05am11.2 mEq/L6.0-15.0[facility] [id number] [address] [facility] [place] [address]Cbgae GapNovember 2024 4:30amNovember 2024 5:06am13.3 mEq/L6.0-15.0[facility] [id number] [address] [facility] [address]Ggrrsnw LevelOctober 2024 3:34amOctober 24th, 2025 4:05am 9.1 mg/dL8.6-10.3F[facility] [id number] [address] [facility] 10[address]Kfiynaj LevelNovember 2024 4:30amNovember 2024 5:06am 9.1 mg/dL8.6-10.3F[facility] [id number] [address] [facility] [address]Kxenaoywj LevelOctober 2024 3:34amOctober 2024 4:05am2.2 mg/dL1.9-2.7F[facility] [id number] [address] [facility] [address]Spnta ProteinOctober 2024 9:32amOctober 2024 10:23am8.6 g/dL6.4-8.9[facility] [id number] [address] [facility] [address]Zewtu ProteinNovember 2024 4:30amNovember 2024 5:06am 8.5 g/dL6.4-8.9[facility] [id number] [address] [facility] [address]KnhtmhmZuwjgby 2024 9:32amOctober 2024 10:23am3.8 g/dL3.5-5.7F[facility] [id number] [address] [facility] 698[address]ZsljzimNioasdjq 2024 4:30amNovember 2024 5:06am3.3 g/dLBelow low normal3.5-5.7F[facility] [id number] [address] [facility] [address]NvjqetddUkmlnxw 2024 9:32amOctober 2024 10:23am4.8 g/dLHolzer Medical Center [facility] [id number] [address] [facility] [address]WkkidxjsTchfxwmf 2024 4:30amNovember 2024 5:06am5.2 g/dLHolzer Medical Center – [facility] [id number] [address] [facility] [address]Ykdwebz/Globulin RatioOctober 2024 9:32amOctober 2024 10:23am0.8[facility] [id number] [address] [facility] 04[address]Xdysjjb/Globulin RatioNove2024 4:30amNovember 2024 5:06am0.6F[facility] [id number] [address] [facility] [address]Dcmjd BilirubinOctober 2024 9:32amOctober 2024 10:23am1.0 mg/dL0.3-1.0[facility] [id number] [address] [facility] [address]Celox BilirubinNovember 2024 4:30amNovember 2024 5:06am0.6 mg/dL0.3-1.0[facility] [id number] [address] [facility] 415[address]Kqevifasc Amino Transf (AST/SGOT)December 02, 2024 9:32am December 02, 2024 10:23am27 U/S85-82DfuwljshfHolzer Medical Center – [facility] [id number] [address] [facility] 201[address]Mgtrubqyy Amino Transf (AST/SGOT)December 19, 2024 4:30am December 19, 2024 5:06am16 U/S52-34KsqftxrkrHolzer Medical Center – [facility] [id number] [address] [facility] 94[address]Pmmztpo Aminotransferase (ALT/SGPT)December 02, 2024 9:32am December 02, 2024 10:23am13 U/L7-52[facility] [id number] [address] [facility] 46638Ckuaxpz Aminotransferase (ALT/SGPT)December 19, 2024 4:30am December 19, 2024 5:06am11 U/L7-52[facility] [id number] [address] [facility] [address]Sehaobdr PhosphataseOctober 2024 9:32amOctober 2024 10:91jr886 U/LAbove high kufrra99-000FwtoijjevHolzer Medical Center – [facility] [id number] [address] [place] [address] 38023Lwabwxdd PhosphataseNovember 2024 4:30amNovember 2024 5:62dx268 U/LAbove high waumlj09-840LnuppbkztHolzer Medical Center – [facility] [id number] [address] [facility] 31844Rzkton Acid LevelOctober 2024 12:21pmOctober 2024 12:50pm0.8 mmol/L0.5-1.9Lactic Acid reference range has been updated to 0.5 ??? 1.9 mmol/L and the critical range of 2.0 orgreater.[facility] [id number] [address] [facility] [address]Cooml Creatine KinaseOctober 2024 8:59amOctober 2024 9:30am60 U/U63-331NucwtfthkHolzer Medical Center – [facility] [id number] [address] [facility] 197[address]Wadcgdmg I High SensitivityOctober 2024 8:59amOctober 2024 9:38am16 ng/L0- Troponin units of report have been changed to meet the Chest Pain Accreditation requirement, element EC5.M1l2. Troponin units are changed from pg/ml to ng/L. Also, the decimal is removed and results are in whole numbers.[facility] [id number] [address] [facility] 86[address]C-Aqjh Natriuretic PeptideOctober 2024 9:32amOct2024 10:08mc951.0 pg/mLAbove high normal5-100[facility] [id number] [address] [place] [address] 47189Fmzokdlr Creatinine Clearance (ChemOctober 2024 3:34am December 05, 2024 4:05am35.90[facility] [id number] [address] [place] [address] 90302Csglbiww Creatinine Clearance (ChemNovember 2024 4:30am December 19, 2024 5:06am35.90[facility] [id number] [address] [place] [address] 919[address]Stpfbfympomsjvqpxyn HormoneOctober 2024 9:56amOctober 2024 1:09pm11.8 pg/mL7.2-63.3ACTH reference interval for samples collected between 7 and10 AM.Performed at: [address] [id number] Director: Judson Pappas PhD, Phone: [phone] GlucoseOctober 2024 3:19pmOctober 2024 3:26pm 168 mg/dLRandom Glucose Reference Range is dependent on time and content of last meal. Glucose of more than 200 mg/dL in a nonstressed, ambulatory subject supports the diagnosis of Diabetes Mellitus.Point of Care testingBedside Glucose CommentOctober 2024 5:49amOctober 2024 5:01obRmx6: cleaned meter Point of Care testing Microbiology Results Procedure Source Result Collection Date/Time Result Date/Time Result Comment Performing Site Blood Culture Blood, Left Antecubital NO GROWTH 5 DAYS December 02, 2024 1:21pm December 07, 2024 1:34pm [facility] [id number] [address] [place] [address] 37978Eidii CultureBlood, Left ForearmNO GROWTH 5 DAYSDecember 02, 2024 6:33pmOctober 2024 6:50pmHolzer Medical Center – [facility] [id number] [address] [place] [address] 21254Bjzocwg CultureSputum, Expectorated2 DaysOctober 2024 3:27amOctober 2024 9:59amHolzer Medical Center [facility] [id number] [address] [place] [address] 35075Mqpn StainSputum, ExpectoratedOctober 2024 3:27amOctober 2024 5:49amHolzer Medical Center [facility] [id number] [address] [place] [address] Diagnostic Imaging Reports Author Robert Esparza [facility] CenterAuthoredOctober 2024 11:45amReport Dictated Date/TimeDictated ByStatusRadiology ReportOctober 2024 11:45am Robert Esparza II [facility] [place] [address] [place] [address] Scan Report Signed Patient: Harpreet Martinez MR#: [id number] : 1950 Acct:[id number] Age/Sex: 74 / M ADM Date: 5 Loc: ER Room: Type: [facility] ER Attending Dr: Copies to: Acacia Long Do~ Ordering Provider: Acacia Long Do Date of Service: 12/02/24 CT/CT angio chest PE protocol: chest pain CT angio chest PE protocol 12/02/2024 11:45 AM SIGN AND SYMPTOMS: Chest pain, shortness of breath, lower extremity swelling CONTRAST: 90 mL of intravenous Isovue-370 TECHNIQUE: Multidetector CT axial slices of the chest were obtained with IV contrast. Multiplanar reformats were performed and viewed on a separate workstation and reviewed to further define anatomy and possible pathology. CT was performed with one or more of the following dose reduction techniques: Automated exposure control, adjustment of the mA and/or kV according to patient size, or use of iterative reconstruction technique. COMPARISON: 07/11/2022. FINDINGS: Lower neck: Mildly prominent supraclavicular lymph nodes are noted measuring up to 9 mm in short axis. These are larger when compared to the prior exam. Vessels: Atherosclerotic changes are noted in the thoracic aorta, origins of the great vessels, and coronary arteries. There is no evidence of pulmonary embolism. There is evidence of repair of aortic annulus. Mediastinum and Kassie: Prominent mediastinal lymph nodes are redemonstrated measuring up to 13 mm in short axis. Heart: Normal size. No pericardial effusion. Airways: Within normal limits Lungs: Airspace opacities noted in the right lower lobe suspicious for pneumonia. This is new when compared to the prior exam. Pleura: Within normal limits. Chest Wall: There is a prominent left axillary lymph node which is increasing in size when compared to the prior exam measuring 17 mm in short axis. Upper Abdomen: Mildly prominent retroperitoneal lymph nodes are partly visualized measuring up to 16 mm in short axis. Bones: Degenerative changes are noted in the thoracic spine. There is evidence of prior sternotomy. CT/CT angio chest PE protocol IMPRESSION: There is no pulmonary embolism. Airspace opacities noted in the right lower lobe suspicious for pneumonia. This is new when compared to the prior exam. Multiple enlarging axillary, supraclavicular, mediastinal, and upper retroperitoneal lymph nodes are present. These are nonspecific but are suspicious for an underlying malignancy. Impression dictated by: Robert Esparza M.D. 12/02/2024 11:53 AM Dictation Location: [facility]- Transcribed By: [facility] 12/02/24 1153 Dictated By: Robert Esparza II, MD 12/02/24 1145 Signed By: <Electronically signed by Robert Esparza II, MD in [place]> 12/02/24 1153 Author Ricky Nuñez [facility] CenterAuthoredOctthree rivers medical center 2024 12:25pmReport Dictated Date/TimeDictated ByStatusRadiology ReportOctober 2024 12:25pm Alize Piedra MDcomplete[facility] [place] [address] [place] [address] Ultrasound Report Signed Patient: Harpreet Martinez MR#: [id number] : 1950 Acct:[id number] Age/Sex: 74 / M ADM Date: 5 Loc: Room: [address] [place] [address] Type: ADM IN Attending Dr: Geoff Edmondson MD Ordering Provider: Geoff Edmondson MD Date of Service: 12/03/24 US/US venous duplex LE BI: ro dvt Copies to: Geoff Edmondson MD~ BILATERAL LOWER EXTREMITY VENOUS DUPLEX INDICATION: Bilateral leg edema PROCEDURE: Color-flow duplex scanning is used to interrogate the deep venous system of the right and left lower extremities. The common femoral vein, femoral vein and popliteal vein show good compressibility with normal proximal and distal augmentation. The posterior tibial and peroneal veins are compressible. A complex anechoic structure was visualized in the right popliteal fossa measuring 2.5 x 1.5 x 3.4 cm. An additional hypoechoic structure is identified in the left groin measuring 2.2 x 2.1 x 1 cm. US/US venous duplex LE BI IMPRESSION: NO EVIDENCE FOR DEEP VEIN THROMBOSIS OR PROXIMAL SUPERFICIAL THROMBOPHLEBITIS IN THE RIGHT OR LEFT LOWER EXTREMITY. A complex anechoic structure was visualized in the right popliteal fossa and a hypoechoic structure was visualized in the left groin. These should be worked up further if not previously known or concerns to be symptomatic. Impression dictated by: Ricky Nuñez M.D. 12/03/2024 12:26 PM Dictation Location: [facility] Tech: Cheryl Rush Transcribed By: PWS 12/03/241225 Dictated By: Ricky Nuñez MD 12/03/241224 Signed By: <Electronically signed by Ricky Nuñez MD in [place]> 12/03/246 Author Robert Esparza [facility] CenterAuthoredOctthree rivers medical center 2024 8:33amReportDictated Date/TimeDictated ByStatusRadiology ReportOctober 2024 8:33amMarcatalino Esparza II [facility] [place] [address] [place] [address] CT Scan Report Signed Patient: Harpreet Martinez MR#: [id number] : 1950 Acct:[id number] Age/Sex: 74 / M ADM Date: 5 Loc: Room: [address] [place] [address] Type: ADM IN Attending Dr: Boone Bautista MD Copies to: MD Boone Tovar MD~ Ordering Provider: Tom Cabrera MD Date of Service: 12/05/24 CT/CT head stroke alert wo con: stroke alert CT head stroke alert wo con 12/05/2024 4:49 AM SIGNS AND SYMPTOMS: Left-sided numbness and tingling, stroke alert TECHNIQUE:Multi-detector CT axial slices of the brain were obtained without IV contrast. CT was performed with one or more of the following dose reduction techniques: Automated exposure control, adjustment of the mA and/or kV according to patient size, or use of iterative reconstruction technique. COMPARISON: 09/18/2023 FINDINGS: There is no shift of the midline structures, acute intracranial bleeding, mass effects, or evidence of acute ischemia. There is age-related cortical atrophy. The ventricular system is normal in size. The brainstem and the cerebellum are unremarkable. The visualized intraorbital contents and the infratemporal soft tissues show no acute abnormality. Mucosal thickening is noted in the right ethmoid air cells. The osseous structures in the skull base and the calvarium show no abnormality. Scarring is noted in the posterior right parietal scalp. CT/CT head stroke alert wo con IMPRESSION: No acute intracranial pathology. Mild chronic age-related findings are noted as above. Impression dictated by: Robert Esparza M.D. 12/05/2024 8:43 AM Dictation Location: [facility]--23 Transcribed By: [facility] 12/05/24842 Dictated By: Robert Esparza II, MD 12/05/24832 Signed By: <Electronically signed by Robert Esparza II, MD in OV> 12/05/24842 Author Keon Maldonado [facility] CenterAuthoredNov2024 10:29amReport Dictated Date/TimeDictated ByStatusRadiology ReportNov2024 10:29am Keon Maldonado [facility] [place] [address] [place] [address] MRI Report Signed Patient: Harpreet Martinez MR#: [id number] : 1950 Acct:[id number] Age/Sex: 74 / M ADM Date: 5 Loc: MR Room: Type: [facility] Attending Dr: Sulaiman Gomez MD Copies to: Sulaiman Gomez MD~ Ordering Provider: Sulaiman Gomez MD Date of Service: 12/17/24 MR/MR head/brain wo/w con: G95.89, C83.00, D80.1, D61.89 MRI BRAIN WITHOUT AND WITH INTRAVENOUS CONTRAST CLINICAL DATA: Hypogammaglobulinemia, anemia, angelina adan syndrome lymphoplasmacytic lymphoma COMPARISON: MRI BRAIN 08/21/2023 FINDINGS: No restricted diffusion. Mild generalized involutional changes identified with prominence of ventricles and sulci. No shift midline structure. Basal cisterns are patent. Mild periventricular subcortical T2 prolongation identified suggest of chronic small vessel ischemic disease. There is focal T2 FLAIR hyperintensity identified involving the right frontoparietal cortices. This demonstrates corresponding pachymeningeal thickening and enhancement with minimal nodularity. Evidence of sulcal effacement noted. Otherwise mild paranasal sinus mucosal thickening. 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 Impression dictated by: Keon Maldonado M.D. 12/17/2024 10:42 AM Dictation Location: [place] [address] Transcribed By: [facility] 12/17/24 1042 Dictated By: Keon Maldonado MD 12/17/24 1029 Signed By: <Electronically signed by Keon Maldonado MD in OV> 12/17/24 1042 Vital Signs Vital Reading Result Reference Range Collection Date/Time Height 68 [in_i] November 25, 2024 8:90hhGtkxvb88.19 kgOctober 2024 8:36amHeart Rate83 /hgt04-752Nvlfaqd 2024 8:36amRespiratory rate16 /ykn31-50Qpxzsst 2024 8:36amOxygen saturation by Pulse fadmitqd17 %95-100October 2024 8:36amBP Xmgrqyrl070 mm[Hg]100-140October 2024 8:36amBP Qgkobhmmd54 mm[Hg] 60-100October 2024 8:36amBMI (Body Mass Index)27.2 kg/z9Cfqckgh 2024 8:60gyUjufbm55 [in_i]December 04, 2024 1:69wbMxglcc76.00 kgOctober 2024 4:17amBody Nzwupyvjxqj02.2 [degF]97.6-99.0Oct2024 11:26amHeart Rate98 /pdt29-822Jacbtwk 2024 2:26pmRespiratory rate18 /ivn20-26Opefyvt 2024 2:26pmOxygen saturation by Pulse lcubiywr62 %95-100October 2024 11:26amBP Yjlwpvsr141 mm[Hg]100-140October 2024 11:26amBP Phjlquuwo95 mm[Hg]60-100October 2024 11:49twPukvii64 [in_i]December 17, 2024 8:19am Mvlxpx95.38 kgNovember 2024 8:53bnDvrsnn52 [in_i]December 19, 2024 4:15am Qgogfz34.84 kgNovember 2024 4:15amBody Pmjphxosrkw00.1 [degF]97.6-99.0 December 19, 2024 4:15amHeart Rate87 /iag87-552Ppspiovv 7th, 2025 6:59am Respiratory rate20 /cvo80-08Vvfkrpoz 7th, 2025 6:59amOxygen saturation by Pulse hylwlqwr11 %95-100Nov2024 6:59amBP Qmhepiti139 mm[Hg]100-140Nov2024 6:59amBP Rphmotqaw15 mm[Hg]60-100Nov2024 6:59am Advance Directives Advance Directive Response Recorded Date/ Time Advance Directives Yes March 8:57am Insurance Providers Guarantor Harpreet Hodgson Address [address] [address]Sqwiijo Info.Home Phone: Coverage Status Update:2024 Payer Group Member ID Coverage Type Subscriber Relationship to Subscriber Effective Date Expiration Date Tino DELAROSA [id number] A Kimmet Id: [id number] [address] [address] Home Phone: SelfMedicare Id: [id number] A Kimmet Id: [id number] [address] [address] Home Phone: Self Encounters Encounter Location(s) Arrival/Admit Date Discharge/Departure Date Discharge/Departure Disposition Provider(s) Departed Physician/ Provider Office Visit -[facility] [place] November 25, 2024 9:35am November 25, 2024 9:59am Discharged to home care or self care (routine discharge) Maci Temple MD Discharged Inpatient - [facility] December 02, 2024 12:38pm December 05, 2024 6:29pm Discharged to home care or self care (routine discharge) Boone Bautista MD Departed Clinical -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 Unknown November 25, 2024 9:35am Hyperparathyroidism Unknown November 9:35am Hyperuricemia Unknown November 25 9:35am Iron deficiency Unknown November 25 9:35am Volume overload Unknown November 25 9:35am Waldenstrom's macroglobulinemia Unknown November 25, 2024 9:35am Anemia Unknown November 25 9:35am Coronary artery disease Unknown November 25, 2024 9:35am Hypokalemia Unknown November 25 9:35am Waldenstrom's macroglobulinemia Unknown December 02, 2024 12:38pm Chest pain Unknown December 02 12:38pm Hypokalemia Unknown December 02 12:38pm Pneumonia Unknown December 02 12:38pm Functional Status Observation Response Date Recorded Dressing Patient at Baseline November 5:29pm Eating Patient at Baseline November 5:29pm Bathing Patient at Baseline November 5:29pm Disability Status Patient at Baseline December 052024 5:29pm Mental Status Observation Response Date Recorded Cognitive Status Patient at Baseline November 5:29pm Cognitive/Mental Status Assessments Assessments Diagnosis Onset Date Resolution Status Admit Date Chronic kidney disease, stage 3b acuteOct2024 9:35amDiabetic nephropathy associated with type 2 diabetes mellitusacuteOct2024 9:35amHyperparathyroidismacuteOct2024 9:35amHyperuricemiaacuteOct2024 9:35amIron deficiencyacute November 25, 2024 9:35amVolume overloadacuteOct2024 9:35am Waldenstrom's macroglobulinemiaacuteOct2024 9:35amAnemiainactive November 25, 2024 9:35amCoronary artery diseaseinactiveNovember 25, 2024 9:35amHypokalemiainactiveOctober 2024 9:35amWaldenstrom's macroglobulinemiaacuteOctober 2024 12:38pmChest painresolvedOctober 2024 12:38pmHypokalemiaresolvedOctober 2024 12:38pmPneumoniaresolved December 02, 2024 12:38pm Plan of Treatment Author Maci Temple [facility] CenterAuthoredOctober 2024 8:46amChronic kidney disease likely from arterionephrosclerosis and diabetic and hypertension in addition to history of LAISHA following CABG surgery. Other possibility could be monoclonal nephropathy since the patient has history of IgM kappa Waldenstrom macroglobulinemia. Creatinine stable at baseline. Patient has mild proteinuria with protein to creatinine ratio < 500 mg/g Blood pressure is well-controlled. On high-dose Bumex for volume management. Advised the patient to continue good control of blood pressure and diabetes to preserve kidney function. Continue treating Waldenstrom macroglobulinemia .instructed the patient to avoid NSAIDs. Follow-up with the patient in 6 months Patient on Januvia and Jardiance. Diabetes seems well-controlled. Keep hemoglobin A1c below 7% to preserve kidney function. Might add JESSIE inhibitor or ARB if patient has proteinuria Will continue Bumex 3 mg twice daily. advised the patient to follow low-salt diet Patient is taking iron supplement. Iron Sat is 26%. Will continue same supplement Follows with [facility] for macroglobulinemia treatment. This was diagnosed in 2009 when patient presented with anemia and symptoms of hyperviscosity. Patient received multiple chemotherapies courses. Currently on Zanubrutinib Patient had AVR and CABG in 2022 done at [facility]. Patient is on Uloric. UA is WNL PTH is 148. 25 OH VD is WNL. No need for active VD. might be from hematology cancer treatment. Hgb > 11 g/dl. Follows with hematology clinic. K is WNL. Continue same KCl supplement Future Tests Future scheduled test information is unavailable Pending Tests Test Name Ordered Date Scheduled Date CT cervical spine wo con December 19, 2024 4:24 am December 19, 2024 4:24am Renal Function Panel November 25, 2024 8:56am 6 Months Future Visits Future appointment information is unavailable Future Procedures Procedure Name Ordered Date Scheduled Date Admit Status Order December 02, 2024 11:38am Oc tober 2024 11:38am Discharge Order December 05, 2024 2:58pm Octobe r 2024 2:58pm Hemogram CBC Without Diff November 25, 2024 8:5 6am 6 Months Magnesium November 25, 2024 8:56am 6 Armando hs Protein Creat Ratio Ur Random November 25, 2024 8:56am 6 Months Parathyroid Hormone Intact November 25, 2024 8: 56am 6 Months Urinalysis November 25, 2024 8:56am 6 Armando hs Uric Acid November 25, 2024 8:56am 6 Armando hs Vitamin D 25 Hydroxy Total November 25, 2024 8: 56am 6 Months Future Medications Future medication information is unavailable Patient Instructions Instruction Admit Date Azithromycin (Systemic) Aspirin Cefuroxime Sildenafil Hope Pamphlet Know your MedsOctober 2024 12:38pmNeck pain - ED discharge instructions December 19, 2024 4:00am Goals Acute Goals Author Authored Date Exhibit optimal tissue perfu lul * Exhibits adequate oxygenation and ventilation * Exhibits adequate cardiac output * Regains stable cardiac rhythm * Maintains optimal activity level * [facility] 2024 12:03pmMaintain/increase activity levels * Understands factors that may lead to activity intolerance * Helps perform self care activities * Maintains maximum range of motion * Increase/regain muscle mass and strength * Maintains VS WNL during activity * Maintain intact skin integrity Updated: 03/27/2022[facility] 2024 5:29pm Preferences Type Detail Treatment Intervention Code Status: Full Code Hospital Discharge Instructions Additional Instructions If your symptoms return/worsen or you develop any further concerns or symptoms please see your doctor or return to the emergency department immediately. It is imperative that you go over today's visit and all results with your primary care provider. As discussed you wish to be discharged to go to your oncology/chemotherapy appointment today. If something changes or change your mind regarding further workup regarding your weakness and neck pain you may return to the emergency department at any time.
[2024-12-26 03:31] VITALS: BP 139/77; PULSE 95; TEMP 36.5; O2SAT 99
--- NOTE | 2024-12-26 03:46 | XR_ITS ---
The [address] [address] Patient Name: KUSHAL LY MRN: [id number] date: 1950 Sex: M Assigned Patient Location: ER Current Patient Location: Accession/Order Number: [id number] Exam Date: 12/26/2024 03:50 Report Date: 12/26/2024 07:33 At the request of: DORIS PEREA MD Procedure: XR shoulder RT min 2V RIGHT SHOULDER - 2 views CLINICAL HISTORY: Patient fell with right shoulder and has shoulder and neck pain. COMPARISON: None AP and Y views were obtained. There is osteopenia. There is no acute fracture or dislocation. Mild degenerative changes seen at the acromioclavicular joint and greater tuberosity. There is slight superior subluxation humeral head with narrowing of the acromiohumeral interval. This could indicate rotator cuff disease. There are no significant soft tissue abnormalities. XR/XR shoulder RT min 2V IMPRESSION: NO ACUTE BONY INJURY. Impression dictated by: Juana Dawson M.D. 12/26/2024 7:33 AM Dictation Location: [place] [address] Electronically authenticated by: [id number] Y Date: 12/26/2024 07:33
--- NOTE | 2024-12-26 03:51 | ED.GENADUL1 ---
HPI HPI - General Adult General Chief complaint: Fall Stated complaint: FALL Time Seen by Provider: 12/26/24 03:41 Source: patient and family Mode of arrival: ambulance History of Present Illness HPI narrative: 74-year-old male presents to the emergency department after sustaining an injury to the back of his head and his right shoulder. He apparently fell in the bathroom after he had a seizure. He has a history of seizures and is on Keppra and is being weaned off of it by his neurologist. He scraped back of his head and there was some bleeding which is now stopped and his chief complaint now is right shoulder pain. He is able to full account of what happened. Last tetanus shot was about 2 years ago. Related Data Home Medications ?Medication ?Instructions ?Recorded ?Confirmed aspirin 81 mg capsule 81 mg PO DAILY 07/25/23 07/25/23 atorvastatin 40 mg tablet 40 mg PO DAILY 07/25/23 07/25/23 bumetanide 1 mg tablet 3 mg PO BID 07/25/23 07/25/23 febuxostat 40 mg tablet 40 mg PO .once daily 07/25/23 07/25/23 levetiracetam 1,000 mg tablet 1,000 mg PO Q12H 07/25/23 07/25/23 metoprolol succinate 25 mg 25 mg PO .once daily 07/25/23 07/25/23 tablet,extended release 24 hr oxycodone-acetaminophen 5 mg-325 1 tab PO Q6H PRN pain 07/25/23 07/25/23 mg tablet pantoprazole 40 mg tablet,delayed 40 mg PO .once daily 07/25/23 07/25/23 release potassium chloride 20 mEq 40 meq PO BID 07/25/23 07/25/23 tablet,extended release sitagliptin phosphate 100 mg 100 mg PO DAILY 07/25/23 07/25/23 tablet (Januvia) zanubrutinib 80 mg capsule 160 mg PO BID 07/25/23 07/25/23 (Brukinsa) Allergies Allergy/AdvReac Type Severity Reaction Status Date / Time Sulfa (Sulfonamide Allergy Mild Verified 07/25/23 20:52 Antibiotics) sulfamethoxazole (From Allergy Mild Verified 07/25/23 20:52 Bactrim) trimethoprim (From Bactrim) Allergy Mild Verified 07/25/23 20:52 clindamycin Allergy Unknown Verified 07/25/23 21:39 metformin Allergy Unknown Verified 07/25/23 21:39 Opioid HPI Opioid Management Most Recent Opioid Data: Last Pain Scale 7 Today, 04:02 Review of Systems ROS Narrative A ten point review of systems is negative except as noted above. PFSH PFSH Social History Little interest or pleasure in doing things: not at all Feeling down, depressed, or hopeless: not at all Exam Narrative Exam Narrative: Nurses note and vital signs reviewed General:The patient appears in no apparent distress.or in place Skin:Warm, dry, no pallor noted.There is no rash noted. Head:Normocephalic, patient noted to the posterior scalp. No laceration. Eye: Normal conjunctiva, no drainage Ears, Nose, Mouth, and Throat: oral mucosa is moist. Nares patent. Cardiovascular:Regular Rate and Rhythm Respiratory:Patient is in no distress, no accessory muscle use, lungs are clear to auscultation, no wheezing, rales or rhonchi Back:non-tender GI:Normal bowel sounds, no tenderness to palpation, no masses appreciated.No rebound, guarding, or rigidity noted. Musculoskeletal: Bilateral lymphedema present. No tenderness in his lower extremities. He has tenderness in the right shoulder Neurological:A&O, normal speech Psychiatric:Cooperative Constitutional Vital Signs, click to edit/add: Last Vital Signs Temp 97.7 F 12/26/24 03:31 Pulse 95 H 12/26/24 03:31 Resp 18 12/26/24 03:31 BP 139/77 12/26/24 03:31 Pulse Ox 99 12/26/24 03:31 O2 Del Method Room Air 12/26/24 03:31 Course Vital Signs Vital signs: Vital Signs Temperature 97.7 F 12/26/24 03:31 Pulse Rate 95 H 12/26/24 03:31 Respiratory Rate 18 12/26/24 03:31 Blood Pressure 139/77 12/26/24 03:31 Pulse Oximetry 99 12/26/24 03:31 Oxygen Delivery Method Room Air 12/26/24 03:31 Temperature 97.7 F 12/26/24 03:31 Pulse Rate 95 H 12/26/24 03:31 Respiratory Rate 18 12/26/24 03:31 Blood Pressure 139/77 12/26/24 03:31 Pulse Oximetry 99 12/26/24 03:31 Oxygen Delivery Method Room Air 12/26/24 03:31 Medical Decision Making MDM Narrative Medical decision making narrative: The shoulder and my interpretation shows shoulder separation. CT C-spine is negative per radiologist. CT brain per radiologist shows right frontal parietal sulcal hyperdensity. This was discussed with the patient and his and this is a finding that is already known to them and they had an MRI a few weeks ago for this issue. It is not acute. He is being released in the care of his family. Differential Diagnosis Differential Diagnosis: fracture, dislocation, contusion, intracranial hemorrhage Imaging Data CT brain, CT C-spine, x-ray shoulder: My impression: Shoulder shows separation on my interpretation Radiologist's impression: Spine per radiologist shows no acute findings. CT brain per radiologist shows right frontal parietal sulcal hyperdensity Discharge Plan Discharge Chief Complaint: Fall Clinical Impression: Fall, Contusion of head, shoulder Patient Disposition: Home, Self-Care Time of Disposition Decision: 05:41 Condition: Good Mode of Transportation: Private Vehicle Prescriptions / Home Meds: No Action aspirin 81 mg capsule 81 mg PO DAILY bumetanide 1 mg tablet 3 mg PO BID febuxostat 40 mg tablet 40 mg PO .once daily levetiracetam 1,000 mg tablet 1,000 mg PO Q12H metoprolol succinate 25 mg tablet extended release 24 hr 25 mg PO .once daily pantoprazole 40 mg tablet,delayed release (DR/EC) 40 mg PO .once daily Januvia 100 mg tablet 100 mg PO DAILY atorvastatin 40 mg tablet 40 mg PO DAILY Brukinsa 80 mg capsule 160 mg PO BID potassium chloride 20 mEq tablet extended release 40 meq PO BID oxycodone-acetaminophen 5-325 mg tablet 1 tab PO Q6H PRN (Reason: pain) Print Language: Georgian Instructions: Contusion in Adults (ED), Shoulder Sprain (ED) Additional Instructions: Do not wear sling for more than 3 days. Wear it for comfort. Referrals: LUIS ALBERTO DARNELL [Primary Care Provider, Family Practice] - 1 week
--- OUTSIDE RECORDS SUMMARY | 2024-12-26 04:21 | XMS_ITS | Encounter Summary ---
Author Organization [facility] Address [address] [facility] [place] [address] Care Team Providers Care [address] Magistrate Name Role Phone Denise Cade MD Unavailable [phone] Denise Cade MD Primary Care Provider [phone] Terrie Martin DO Unavailable [phone] Sarkis Raymundo MD Unavailable [phone] Denise Alarcon RN Unavailable [phone] Encounter Details DateTypeDepartmentCare Team (Latest Contact Info)Imysplsakal49/07/2025bstract SHEYLA Carrasco Otolaryngology [address] [place] [id number] Lowell Wright, DO [address] [place] [address] Social History Tobacco UseTypesPacks/DayYears UsedDateSmoking Tobacco: FormerCigarettes Smokeless Tobacco: NeverAlcohol UseStandard Drinks/WeekCommentsNever0 (1 standard drink = 0.6 oz pure alcohol)Caffeine intake: 1 cups per dayPHQ-2Answer Date RecordedPatient Health Questionnaire-2 Rwick562Sex and Gender InformationValueDate RecordedSex Assigned at BirthNot on fileLegal SexMale 04/26/2022 7:10 PM EDTGender ZlwzlnzrHqmd49/15/2023 7:10 PM EDTSexual OrientationNot on filedocumented as of this encounter Plan of Treatment DateTypeDepartmentCare Team (Latest Contact Info)Prflselnyov95/22/2025 10:00 AM ESTOffice Visit [facility] [address] [place] [phone] David Booker MD [address] [facility] [address] [facility], [place] [id number] 03/30/2025 8:30 AM ESTProcedure Visit [facility] [address] [phone] Sarkis Lo DPM [address] [place], [place] [id number] documented as of this encounter Visit Diagnoses Not on filedocumented in this encounter Additional Health Concerns AssessmentNoted TimePQ-9 Depression Total Score: 2:00 PM EDT documented as of this encounter Care Teams Team MemberRelationshipSpecialtyStart DateEnd Date Denise Cade MD [address] [facility] [place] [address] PCP - Tino ME02/12/21 Denise Cade MD [address] [facility] [address] [facility] - [facility]/13/22 Terrie Martin DO [address] [place] [address] Referring PhysicianNeurology05/08/23 Sarkis Raymundo MD [address] [place] [address] Referring PhysicianNeurolog04/01/24 Denise Alarcon, JUAN JOSE [address] [place] [address] Registered NurseFamily [facility]07/24/24documented as of this encounter
--- OUTSIDE RECORDS SUMMARY | 2024-12-26 04:21 | XMS_ITS | Encounter Summary ---
Author Organization [facility] Address [address] [place] [address] Care Team Providers Care Executive Compensation Analyst Name Role Phone Denise Cade MD Unavailable [phone] Denise Cade MD Primary Care Provider [phone] Terrie Martin DO Unavailable [phone] Sarkis Raymundo MD Unavailable [phone] Denise Groves RN Unavailable [phone] Encounter Details DateTypeDepartmentCare Team (Latest Contact Info)Tjzgcowmazv89/11/2025Patient Outreach [facility] [address] [place] [address] Denise Groves, JUAN JOSE [address], [place] [id number] Social History Tobacco UseTypesPacks/DayYears UsedDateSmoking Tobacco: FormerCigarettes Smokeless Tobacco: NeverAlcohol UseStandard Drinks/WeekCommentsNever0 (1 standard drink = 0.6 oz pure alcohol)Caffeine intake: 1 cups per dayPHQ-2Answer Date RecordedPatient Health Questionnaire-2 [id number] and Gender InformationValueDate RecordedSex Assigned at BirthNot on fileLegal SexMale 04/26/2022 7:10 PM EDTGender XfkgrvtsJklp67/15/2023 7:10 PM EDTSexual OrientationNot on filedocumented as of this encounter Progress Notes * Denise Groves RN - 12/23/2024 12:21 PM EST Images from the original note were not included. <December 23, 2024, 12:21 - Denise Groves RN> Chart reviewed. No dc in chart. Call to [facility] medical records, , spoke with [facility], requested dc notes from ER visit on 12/19/24. She will fax to [facility] fax number. <December 23, 2024, 12:27 - Denise Groves RN> Call to home, LM asking for returned call. <December 24, 2024, 08:21 - Denise Groves RN> Rec incoming fax of [facility] DC - added to chart under media tab. DOCUMENT REVIEWED: Pt to [facility] 12/19/24. Presented with neck pain and left arm weakness. He was eval, treated and dc to home. Testing included labs, CT cervical spine. DX: Neck pain, Left arm weakness No new prescriptions were given. <December 24, 2024, 09:50 - Denise Groves RN>Call rec from pt. He reported he is not worth a @#@#. He passed phone to . She reported pt's neck is feeling better. They are calling because they are concerned about his BS. He has been on Dexamethasone per Dr Corral and now his BS are high.Today was 295. They are concerned and they called and LM at Dr Corral's office asking if he can stop med. They wanted to know what they can do for the BS. He is not on insulin. Takes Jardiance and Januvia.He is on a new chemo med - Venclexta 100mg - [address] Guerrero, onc. He also restarted Uldoxl387sc 2 x daily due to the risk of seizures with the new chemo pill. (Previously Dr Corral had tried to wean him off of Keppra). He has an appt at [facility] today and goes to [facility] on Sunday. Meds reviewed and reconciled. They declined appt at this time. They ask what should be done about high BS. Flowsheet Row Patient Outreach from 12/23/2024 in [facility] with Denise Groves RN Hospital Information ED, Hospital or Usp Facility Discharge? ED Patient has been contacted within 2 days of being seen in the ED No Have two attempts been made, within 2 days of being seen in the ED, to contact the patient? Yes Diagnosis DX: Neck pain, Left arm weakness Discharge Date 12/19/24 Discharged To: Home Setting Discharge [facility] Engagement Call Start Time 0950 Admission Date 12/19/24 Medications Discharge medications reviewed and reconciled from hospital? Not applicable [No new prescriptions were given.] Does the patient have all medications ordered at discharge? Not applicable [No new prescriptions were given.] Is the patient taking all medications as directed (includes completed medication regime)? Yes Nursing Interventions Nurse provided patient education Medication Comments pt/ concerned about high bs with taking dexamethosone Appointments Does the patient have a primary care provider? Yes [declined appt at this time] Does the patient have any upcoming specialty appointments? Yes [Onc, Dr Guerrero 12/24/24] Nursing Interventions Advised patient to keep appointment Self Management Does patient have home health? no Patient Teaching Does the patient have access to their discharge instructions? Yes Nursing Interventions Reviewed instructions with patient What is the patient's perception of their health status since discharge? Improving Wrap Up Wrap Up Additional Comments Pt to [facility] 12/19/24. Presented with neck pain and left arm weakness. He was eval, treated and dc to home. Testing included labs, CT cervical spine. DX: Neck pain, Left arm weakness No new prescriptions were given. Call End Time 1008 * Denise Cade MD - 12/23/2024 12:21 PM EST Has he ever given himself insulin injections in the past? We could do a sliding scale to help with the interim issue of high BS. Should go back down as he is able to decrease the steroids. documented in this encounter Plan of Treatment DateTypeDepartmentCare Team (Latest Contact Info)Vskmhhpqheg56/22/2025 10:00 AM ESTOffice Visit [facility] [address] [place] [address] David Booker MD [address] [facility] [address] [address] 03/30/2025 8:30 AM ESTProcedure Visit [facility] [address] [place] [phone] Sarkis Lo DPM [address] [place], [place] [phone] documented as of this encounter Visit Diagnoses Diagnosis Type 2 diabetes mellitus with stage 3b chronic kidney disease, with long-term current use of insulin (HCC)- Primary Essential hypertension Unspecified essential hypertension documented in this encounter Additional Health Concerns AssessmentNoted TimePHQ-9 Depression Total Score: 2:00 PM EDT documented as of this encounter Care Teams Team MemberRelationshipSpecialtyStart DateEnd Date Denise Cade MD [address] [place] [address] PCP - [place]02/12/21 Denise Cade MD [address] [place] [address] PCP - GeneralFamily Medicine07/13/22 Terrie Martin DO [address] [place] [address] Referring PhysicianNeurology05/08/23 Sarkis Raymundo MD [address] [place] [address] Referring PhysicianNeurology2 Denise Groves, RN [address] [place] [address] Registered NurseFamily Medicine07/24/24documented as of this encounter
--- OUTSIDE RECORDS SUMMARY | 2024-12-26 04:21 | XMS_ITS | Encounter Summary ---
Author Organization [facility] Address [address] [facility] [place] [address] Care Team Providers Care Pelletizer Tender Name Role Phone Denise Cade MD Unavailable [phone] Denise Cade MD Primary Care Provider [phone] Terrie Martin DO Unavailable [phone] Sarkis Raymundo MD Unavailable [phone] Denise Alarcon RN Unavailable [phone] Encounter Details DateTypeDepartmentCare Team (Latest Contact Info)Ygenatzaood38/03/2025Travel Social History Tobacco UseTypesPacks/DayYears UsedDateSmoking Tobacco: FormerCigarettes Smokeless Tobacco: NeverAlcohol UseStandard Drinks/WeekCommentsNever0 (1 standard drink = 0.6 oz pure alcohol)Caffeine intake: 1 cups per dayPHQ-2Answer Date RecordedPatient Health Questionnaire-2 [id number] and Gender InformationValueDate RecordedSex Assigned at BirthNot on fileLegal SexMale 04/26/2022 7:10 PM EDTGender FobvnkvdUzly89/15/2023 7:10 PM EDTSexual OrientationNot on filedocumented as of this encounter Plan of Treatment DateTypeDepartmentCare Team (Latest Contact Info)Poarehwzmkq03/22/2025 10:00 AM ESTOffice Visit [facility] [address] [facility] [address] [place] [address] David Booker MD [address] [facility] [address] [place] [address] 03/30/2025 8:30 AM ESTProcedure Visit [facility] [address] [place] [phone] Sarkis Lo, DPM [address] [place], [place] [phone] documented as of this encounter Visit Diagnoses Not on filedocumented in this encounter Additional Health Concerns AssessmentNoted TimePQ-9 Depression Total Score: 2:00 PM EDT documented as of this encounter Care Teams Team MemberRelationshipSpecialtyStart DateEnd Date Denise Cade MD [address] [facility] [place] [address] PCP - [place] MA1 Denise Cade MD [address] [place] [address] PCP - GeneralFamily Medicine07/13/22 Terrie Martin DO [address] [place] [address] Referring PhysicianNeurology3 Sarkis Raymundo MD [address] [place] [address] Referring PhysicianNeurology2 Denise Alarcon, RN [address] [place] [address] Registered NurseFamily Medicine07/24/24documented as of this encounter
--- OUTSIDE RECORDS SUMMARY | 2024-12-26 04:21 | XMS_ITS | Encounter Summary ---
Author Organization [facility] Address [address] [place] [address] Care Team Providers Care Dairy Processing Supervisor Name Role Phone Denise Cade MD Unavailable [phone] Denise Cade MD Primary Care Provider [phone] Terrie Martin DO Unavailable [phone] Sarkis Raymundo MD Unavailable Denise Alarcon RN Unavailable [phone] Encounter Details DateTypeDepartmentCare Team (Latest Contact Info)Jftvxwdjnqw48/04/2025Results Follow-Up [facility] [address] [place] [address] Denise Cade MD [address] [place], [place] [phone] XR chest 2 views, Basic metabolic panel, POCT glucose Social History Tobacco UseTypesPacks/DayYears UsedDateSmoking Tobacco: FormerCigarettes Smokeless Tobacco: NeverAlcohol UseStandard Drinks/WeekCommentsNever0 (1 standard drink = 0.6 oz pure alcohol)Caffeine intake: 1 cups per dayPHQ-2Answer Date RecordedPatient Health Questionnaire-2 [id number] and Gender InformationValueDate RecordedSex Assigned at BirthNot on fileLegal SexMale 04/26/2022 7:10 PM EDTGender KzwrdzcjJsry49/15/2023 7:10 PM EDTSexual OrientationNot on filedocumented as of this encounter Miscellaneous Notes * Telephone Encounter - Denise Cade MD - 12/17/2024 4:13 PM EST I would say around 70 ounces * Telephone Encounter - Syeda Hughes MA - 12/17/2024 3:21 PM EST Pt states that he was in the ER and they told him that due to his swelling he should only be drinking 50 fluid ounces a day. What would you recommend that he drinks a day? * Telephone Encounter - Syeda Hughes MA - 12/17/2024 3:21 PM EST ----- Message from Dr. Denise Cade sent at 12/17/2024 1:43 PM EST ----- Per the labs, he is looking a little dry. Kidney function is pretty stable. I would maybe increase the fluids a bit so he does not stay quite this dry. ----- Message ----- From: Denise Silva MA Sent: 12/16/2024 10:59 AM EST To: Denise Cade MD * Telephone Encounter - Denise Silva MA - 12/17/2024 8:16 AM EST Spoke with and she voices understanding * Telephone Encounter - Denise Silva MA - 12/17/2024 8:16 AM EST ----- Message from Dr. Denise Cade sent at 12/16/2024 6:04 PM EST ----- CXR does not show pneumonia. ----- Message ----- From: Interface, Incoming Img Psone Background Sent: 12/16/2024 5:09 PM EST To: Denise Cade MD documented in this encounter Plan of Treatment DateTypeDepartmentCare Team (Latest Contact Info)Cutziduyumc47/22/2025 10:00 AM ESTOffice Visit [facility] [address] [place] [phone] David Booker MD [address] [facility] [address] [facility], [place] [address] 03/30/2025 8:30 AM ESTProcedure Visit [facility] [address] [place] [phone] Sarkis Lo, DP [address] [place] [address] documented as of this encounter Visit Diagnoses Not on filedocumented in this encounter Additional Health Concerns AssessmentNoted TimePHQ-9 Depression Total Score: 2:00 PM EDT documented as of this encounter Care Teams Team MemberRelationshipSpecialtyStart DateEnd Date Denise Cade MD [address] [place] [address] PCP - T[place] RAVI02/12/21 Denise Cade MD [address] [place] [address] PCP - GeneralFamily Medicine07/13/22 Terrie Martin DO [address] [place] [address] Referring PhysicianNeurology05/08/23 Sarkis Raymundo MD [address] [place] [address] Referring PhysicianNeurology2 Denise Alarcon, RN [address] [place] [address] Registered NurseFamily Medicine07/24/24documented as of this encounter
--- OUTSIDE RECORDS SUMMARY | 2024-12-26 04:21 | XMS_ITS | Clinical Summary ---
Author Organization [facility] Address [address] [facility], [address] [place] [address] Care Team Providers Care Lgsw Name Role Phone Denise Christianson MD Primary Care Pr ovider Allergies Active AllergyReactionsCriticalityNoted DateCommentsClindamycinItching,Other (See Comments)04/26/20238571BcgarfsorJmfpbmhr11/11/2023Metformin HclOther (See Comments),Bdvlbhj3903/03/2021ulfa JyswpdggfloOcrwhwdJeh36/01/2024 Sulfamethoxazole-TrimethoprimItching,Rash,Other (See Comments)Low03/03/2021 TrimethoprimItching,Other (See Comments)07/23/2020 Medications MedicationSigDispense QuantityRefillsLast FilledStart DateEnd DateStatus atorvastatin (LIPITOR) 10 MG tablet Take 20 mg by mouth daily.Active atenolol (TENORMIN) 50 MG tablet Take 50 mg by mouth daily.Active losartan (COZAAR) 50 MG tablet Take 100 mg by mouth dailyActive metFORMIN (GLUCOPHAGE) 500 MG tablet Take 500 mg by mouth 2 times daily (with meals)Active pantoprazole (PROTONIX) 40 MG tablet Take 1 tablet by mouth daily 30 tablet ctive ibrutinib (IMBRUVICA) 140 MG chemo capsule Take 420 mg by mouth daily Pt takes 2 dailyActive amLODIPine (NORVASC) 10 MG tablet Take 10 mg by mouth dailyActive aspirin 81 MG tablet Take 81 mg by mouth dailyActive Social History Tobacco UseTypesPacks/DayYears UsedDateSmoking Tobacco: FormerSmokeless Tobacco: NeverAlcohol UseStandard Drinks/WeekCommentsNo0 (1 standard drink = 0.6 oz pure alcohol)AUDIT-CAnswerDate RecordedQ1: How often do you have a drink containing alcohol?Never06/13/2023Q2: How many drinks containing alcohol do you have on a typical day when you are drinking?Patient does not drink06/13/2023Q3: How often do you have six or more drinks on one occasion?Never06/13/2023Interpersonal Safety Domain Source: IP Abuse ScreeningAnswerDate RecordedRead-Only, Retired: Physical CxlxkEmyelu49/01/2024ead-Only, Retired: Verbal VqybbJhjgdm50/01/2024 Read-Only, Retired: Emotional jolxiAnsrrv54/01/2024ead-Only, Retired: Financial KjzxgCndbtb84/01/2024ead-Only, Retired: Sexual kchkaZpgmmc47/01/2024Sex and Gender InformationValueDate RecordedSex Assigned at BirthNot on fileLegal Sex Male03/24/2012 6:00 PM ESTGender IdentityNot on fileSexual OrientationNot on file Last Filed Vital Signs Vital SignReadingTime TakenCommentsBlood Qzbpznvp585/6605 7:36 PM EDT Euuqs070506/13/2023 7:36 PM AWKYvmxdluewxb96.8 ??C (98.3 ??F)06/13/2023 7:36 PM EDTRespiratory Genk712506/13/2023 7:36 PM EDTOxygen Lktodqdmup49%06/13/2023 7:36 PM EDTInhaled Oxygen Concentration--Eduevr81.6 kg (180 lb)06/13/2023 7:36 PM EDT Tjemzk351.3 cm (5' 9 )06/13/2023 7:36 PM EDTBody Mass Index26.58006/13/2023 7:36 PM EDT Plan of Treatment Health MaintenanceDue DateLast DoneCommentsDepression Yhsfnl3606/19/1961Hepatitis C vfyzui4306/20/19679827Lgzooipcnhs33/08/1995Colorectal Cancer Btdebx2706/19/1994 FIT/FOBT: Average risk1994Fecal-DNA (Cologuard): Average risk1994 Sigmoidoscopy/CT gugmgwduewox96/08/1995Shingles vaccine (1 of 2)06/20/1999A1C test (Diabetic or Prediabetic)Lipids, 12/27/2013, 02/10/2013, Additional history existsRespiratory Syncytial Virus (RSV) or age 60 yrs+ (1 - 1-dose 75+ series)2024Flu vaccine (#1) 5010/31/2022, 01/11/2022, 1COVID-19 Vaccine ( season)5103/29/2021, 05/31/2021, 11/20/2020, Additional history exists DTaP/Tdap/Td vaccine (3 - Td or Tdap), 12/26/2012AA screen Zpekuxmvb00/24/2015, 09/21/2014, 09/16/2014, Additional history exists Pneumococcal 50+ years JdejdedLvyniyjlz29/08/2021, 12/02/2019, 11/13/2019 Hepatitis A vaccineAged OutNo longer eligible based on patient's age to complete this topicHepatitis B vaccineAged OutNo longer eligible based on patient's age to complete this topicHib vaccineAged OutNo longer eligible based on patient's age to complete this topicMeningococcal (ACWY) vaccineAged OutNo longer eligible based on patient's age to complete this topicMeningococcal B vaccineAged OutNo longer eligible based on patient's age to complete this topicPolio vaccineAged OutNo longer eligible based on patient's age to complete this topic Procedures Procedure NamePriorityDate/TimeAssociated DiagnosisCommentsLIPID PANELRoutine 02/12/2016 10:[address] ABDOMEN PELVIS W IV JJTJEQXGUPUO07/24/2015 7:38 AM EDT HEMOGLOBIN M9PMsqktpt50/15/2014 8:37 AM EST from Last 3 Months or Most Recently Relevant to Health Maintenance Results * (ABNORMAL) Lipid Panel (02/12/2016 10:04 AM EST)ComponentValueRef RangeTest MethodAnalysis TimePerformed AtPathologist RczirpwjyWmuoxyodjmv602<200 mg/dL 02/12/2016 11:36 AM [facility] LABComment: Cholesterol Guidelines: <200 Desirable 200-240 ??Borderline >240 Undesirable HDL37(L)>40 mg/dL02/12/2016 11:36 AM ESTPN LABComment: HDL Guidelines: <40 Undesirable 40-59 ?Borderline >59 Desirable LDL Eanfdbkmenr510 - 130 mg/dL02/12/2016 11:36 AM [facility]STM[facility]ILL[facility] LABComment: LDL Guidelines: <100 Desirable 100-129 ?? Near to/above Desirable 130-159 ?? Borderline >159 Undesirable Direct (measured) LDL and calculated LDL are not interchangeable tests. Chol/HDL Ratio4.6< 11:36 AM [facility]STM[facility] LABComment:Fkfwmyagxlfcm028(H) <150 mg/dL02/12/2016 11:36 AM [facility] LABComment: Triglyceride Guidelines: <150 Desirable 150-199 ??Borderline 200-499 ??High >499 Very high Based on AHA Guidelines for fasting triglyceride, November 2011. Performed at [address] [place] [address] ([phone] VLDLNOT REPORTED1 - 30 mg/dLUNIVERSITY [facility]ITALS [facility]LEVEL[facility] LABSpecimen (Source) Anatomical Location / LateralityCollection Method / VolumeCollection Time Received Time02/12/2016 10:04 AM EST02/12/2016 10:05 AM EST Narrative Authorizing ProviderResult TypeResult StatusUnknown Provider ResultCHEMISTRY ORDERABLESFinal ResultPerforming OrganizationAddressCity/State/ZIP CodePhone Number [facility] [address] [place] [address], [facility] [phone] [facility] * CT ABDOMEN PELVIS W IV CONTRAST Additional Contrast?: Oral (10/05/2014 7:38 AM EDT)Anatomical RegionLateralityModalityAbdomen, Pelvis, HipComputed Tomography Specimen (Source)Anatomical Location / LateralityCollection Method / Volume Collection TimeReceived Time10/05/2014 12:22 PM EDT Narrative 10/05/2014 12:22 PM EDT FINAL REPORT EXAM: ??CT ABDOMEN PELVIS W IV CONTRAST HISTORY: ??Left upper quadrant abdominal pain TECHNIQUE: ??Sequential axial CT images were obtained from the lung bases to the proximal femurs following the uneventful administration of 100 cc Optiray 320 intravenous contrast. ??The patient alsoreceived oral and/or rectal contrast. PRIORS: ??09/21/2014 FINDINGS: ?? ABDOMEN FINDINGS: Scans through the lung bases demonstrate mild bibasilar atelectasis. The is mild fatty infiltration of the liver. ??The stomach, gallbladder, spleen, pancreas, adrenals, and left kidney are grossly unremarkable. There is a stable right renal cyst. ??There is no abdominal lymphadenopathy or ascites. The aorta is normal in caliber with moderate plaque. PELVIS FINDINGS: The visualized small bowel and colon are unremarkable aside from mild constipation. The appendix iswell seen and is normal. ??There is no pelvic lymphadenopathy or free fluid. The prostate is enlarged. There are small fat containing inguinal hernias bilaterally. ??The bladder and soft tissues are within normal limits. Multilevel degenerative and postsurgical changes are seen in the spine. Impression: ?? 1. No acute abnormalities. Stable exam. 2. Fatty liver. 3. Right renal cyst. 4. Mild constipation. 5. Degenerative and postsurgical changes in the spine. Electronically Signed By: CLAUDINE KAPOOR ?? on ??10/05/2014 ??08:22 Procedure Note Claudine Kapoor - 10/05/2014 FINAL REPORT EXAM: CT ABDOMEN PELVIS W IV CONTRAST HISTORY: Left upper quadrant abdominal pain TECHNIQUE: Sequential axial CT images were obtained from the lung basesto the proximal femurs following the uneventful administration of 100 ccOptiray 320 intravenous contrast. The patient also received oral and/orrectal contrast. PRIORS: 09/21/2014 FINDINGS: ABDOMEN FINDINGS: Scans through the lung bases demonstrate mild bibasilar atelectasis. The is mild fatty infiltration of the liver. The stomach, gallbladder,spleen, pancreas, adrenals, and left kidney are grossly unremarkable.There is a stable right renal cyst. There is no abdominal lymphadenopathyor ascites. The aorta is normal in caliber with moderate plaque. PELVIS FINDINGS: The visualized small bowel and colon are unremarkable aside from mild constipation. The appendix is well seen and is normal. There is no pelvic lymphadenopathy or free fluid. The prostate is enlarged. There are smallfat containing inguinal hernias bilaterally. The bladder and soft tissues are within normal limits.Multilevel degenerative and postsurgical changes are seen in the spine. Impression: 1. No acute abnormalities. Stable exam. 2. Fatty liver. 3. Right renal cyst. 4. Mild constipation. 5. Degenerative and postsurgical changes in the spine. Authorizing ProviderResult TypeResult StatusRobert Ramires Aguilar DOIMG CT ORDERABLES Final Result * (ABNORMAL) Hemoglobin A1C (12/27/2013 8:37 AM EST)ComponentValueRef RangeTest MethodAnalysis TimePerformed AtPathologist SignatureHemoglobin A1C6.4(H)4.8 - 5.9 %12/27/2013 9:48 AM ESTMHPN LABEstimated Avg Xbvvspv912ar/dL12/27/2013 9:48 AM ESTPN LABComment: The ADA and AACC recommend providing the estimated average glucose result to permit better patient understanding of their HBA1c result. Performed at [address] [place] [address] ([phone] Specimen (Source)Anatomical Location / LateralityCollection Method / Volume Collection TimeReceived Time12/27/2013 8:37 AM EST12/27/2013 8:38 AM EST Narrative Authorizing ProviderResult TypeResult Portia Moreno COAL YARD SUPERVISOR - CNPCHEMISTRY ORDERABLESFinal ResultPerforming OrganizationAddressCity/State/ZIP CodePhone Number [facility] [address] [place] [address], [facility] [phone] [facility] from Last 3 Months or Most Recently Relevant to Health Maintenance Insurance Care Teams Team MemberRelationshipSpecialtyStart DateEnd Date Denise Christianson MD [address] [place] [id number] [facility] - Dvrkarp04/20/13
--- OUTSIDE RECORDS SUMMARY | 2024-12-26 04:21 | XMS_ITS | Encounter Summary ---
Author Organization [facility] Address [address] [place] [address] Care Team Providers Care Silver Designer Name Role Phone Denise Cade MD Unavailable [phone] Denise Cade MD Primary Care Provider [phone] Terrie Martin DO Unavailable [phone] Sarkis Raymundo MD Unavailable [phone] Denise Alarcon RN Unavailable [phone] Reason for Referral * Imaging (Routine) - AuthorizedSpecialtyDiagnoses / ProceduresReferred By ContactReferred To ContactRadiology Diagnoses Cervical stenosis (uterine cervix) Procedures MR cervical spine wo contrast Keeley Strauss MD [address] [facility] [address] [place] [address] Phone: tel: fax: [facility] [address] [facility] [place] [address] Phone: tel: fax: Referral IDStatusReasonStart DateExpiration DateVisits RequestedVisits [id number] Encounter Details DateTypeDepartmentCare Team (Latest Contact Info)Ivdtlxrxtwq66/10/2025Telephone [facility] [address] [facility] [address] [place] [address] Sendy Pittman MA Social History Tobacco UseTypesPacks/DayYears UsedDateSmoking Tobacco: FormerCigarettes Smokeless Tobacco: NeverAlcohol UseStandard Drinks/WeekCommentsNever0 (1 standard drink = 0.6 oz pure alcohol)Caffeine intake: 1 cups per dayPHQ-2Answer Date RecordedPatient Health Questionnaire-2 [id number] and Gender InformationValueDate RecordedSex Assigned at BirthNot on fileLegal SexMale 04/26/2022 7:10 PM EDTGender KajxkucrLuss05/15/2023 7:10 PM EDTSexual OrientationNot on filedocumented as of this encounter Miscellaneous Notes * Telephone Encounter - Keeley Strauss MD - 12/22/2024 10:59 AM EST Sending in orders for MRI and cervical x-ray * Addendum Note - Keeley Strauss MD - 12/22/2024 10:58 AM ESTAddended by: KEELEY STRAUSS on: 12/22/2024 10:58 AM Modules accepted: Orders * Telephone Encounter - Sendy Pittman MA - 12/22/2024 8:52 AM EST Patient leaves message that he is having a lot of pain and trouble with his neck. He states that hefell out of bed and is wondering if he can get imaging of the neck Patient also states that the Dexamethasone is not helping with the pain and tightness documented in this encounter Plan of Treatment DateTypeDepartmentCare Team (Latest Contact Info)Hbmmjhgkbbg63/22/2025 10:00 AM ESTOffice Visit [facility] [address] [facility] [address] [place] [address] Keeley Strauss MD [address] [facility] [address] [place] [place] [address] 03/30/2025 8:30 AM ESTProcedure Visit [facility] [address] [place] [address] Sarkis Lo, DPDallas [address] [place], [place] [address] NameTypePriorityAssociated DiagnosesOrder ScheduleXR cervical spine complete 4 to 5 viewsImagingRoutine Cervical stenosis (uterine cervix) Expected: 12/22/2024, Expires: 12/22/2025MR cervical spine wo contrastImaging Routine Cervical stenosis (uterine cervix) Expected: 12/22/2024, Expires: 12/22/2025documented as of this encounter Visit Diagnoses Diagnosis Cervical stenosis (uterine cervix)- Primary Stricture and stenosis of cervix documented in this encounter Additional Health Concerns AssessmentNoted TimePHQ-9 Depression Total Score: 2:00 PM EDT documented as of this encounter Care Teams Team MemberRelationshipSpecialtyStart DateEnd Date Denise Cade MD [address] [facility] [place] [address] PCP - [facility]02/12/21 Denise Cade MD [address] [place] [address] [facility]07/13/22 Terrie Martin DO [address] [place] [address] Referring PhysicianNeurology05/08/23 Sarkis Raymundo MD [address] [place] [address] Referring PhysicianNeurology2/ Denise Alarcon, RN [address] [place] [address] Registered NurseFamily Medicine07/24/24documented as of this encounter
--- OUTSIDE RECORDS SUMMARY | 2024-12-26 04:21 | XMS_ITS ---
Author Organization [facility] Address [address] [place] [address] Care Team Providers Care Sole Cementer Name Role Phone Denise Cade MD Unavailable [phone] Denise Cade MD Primary Care Provider [phone] Terrie Martin DO Unavailable [phone] Sarkis Raymundo MD Unavailable [phone] Denise Alarcon RN Unavailable [phone] Emergency Department Transitional Care Management (TCM) Status:Closed (Closed) Start date:12/19/2024 Enrollment reason:Identified using hospital discharge data End date:12/24/2024 Close reason:Actively enrolled in CCM Overview Discharged from [facility] ER on 12/19. Please contact within 2 days of discharge for ER GABRIELA and schedule a follow-up appointment if needed. Continued Care and Services Coordination
--- OUTSIDE RECORDS SUMMARY | 2024-12-26 04:21 | XMS_ITS | Encounter Summary ---
Author Organization [facility] Address [address] [place] [address] Care Team Providers Care Attendance Officer Name Role Phone Denise Cade MD Unavailable [phone] Denise Cade MD Primary Care Provider [phone] Terrie Martin DO Unavailable [phone] Sarkis Raymundo MD Unavailable [phone] Denise Alarcon RN Unavailable [phone] Encounter Details DateTypeDepartmentCare Team (Latest Contact Info)Dkvqklckwwc48/11/2025Telephone [facility] [address] [facility] [address] [facility] [place] [address] Evelyn Carpenter MA Social History Tobacco UseTypesPacks/DayYears UsedDateSmoking Tobacco: FormerCigarettes Smokeless Tobacco: NeverAlcohol UseStandard Drinks/WeekCommentsNever0 (1 standard drink = 0.6 oz pure alcohol)Caffeine intake: 1 cups per dayPHQ-2Answer Date RecordedPatient Health Questionnaire-2 [id number] and Gender InformationValueDate RecordedSex Assigned at BirthNot on fileLegal SexMale 04/26/2022 7:10 PM EDTGender YhowjrbjGfeg80/15/2023 7:10 PM EDTSexual OrientationNot on filedocumented as of this encounter Miscellaneous Notes * Telephone Encounter - Evelyn Carpenter MA - 12/23/2024 2:57 PM EST Sadia -Nurse from [facility] left msg regarding patient and wanted to inform us on medication recommendations when he was in the office last week. Cb at [phone] documented in this encounter Plan of Treatment DateTypeDepartmentCare Team (Latest Contact Info)Jmfwgxnccnt80/22/2025 10:00 AM ESTOffice Visit [facility] [address] [place] [address] David Booker MD [address] [facility] [address] [place] [address] 03/30/2025 8:30 AM ESTProcedure Visit [facility] [address] [place] [address] Sarkis Lo DPDallas [address] [place], [place] [address] documented as of this encounter Visit Diagnoses Not on filedocumented in this encounter Additional Health Concerns AssessmentNoted TimePHQ-9 Depression Total Score: 2:00 PM EDT documented as of this encounter Care Teams Team MemberRelationshipSpecialtyStart DateEnd Date Denise Cade MD [address] [place] [address] PCP - Tino RAVI02/12/21 Denise Cade MD [address] [place] [address] PCP - GeneralFamily Medicine07/13/22 Terrie Martin DO [address] [place] [address] Referring PhysicianNeurology05/08/23 Sarkis Raymundo MD [address] [place] [address] Referring PhysicianNeurology2 Denise Alarcon, RN [address] [place], [place] [address] Registered NurseFamily Medicine07/24/24documented as of this encounter
--- OUTSIDE RECORDS SUMMARY | 2024-12-26 04:21 | XMS_ITS | Clinical Summary ---
Author Organization [facility] Address [address] [place] [address] Phone Care Team Providers Care Supervisor [employer] Name Role Phone Denise Cade MD Primary Care Provider [phone] Allergies Active AllergyReactionsCriticalityNoted TgfwWfiddofgNigdoetzeNarzgyis06/11/2023 Sulfamethoxazole-QsflvbnbaobwPneqHxj65/11/2023 Medications MedicationSigDispense QuantityRefillsLast FilledStart DateEnd DateStatus pantoprazole (ProtoNix) 40 mg EC tablet Take 1 tablet (40 mg) by mouth once daily.Active SITagliptin phosphate (Januvia) 100 mg tablet Take 1 tablet (100 mg) by mouth once daily.Active zanubrutinib (Brukinsa) 80 mg capsule Take 2 capsules (160 mg total) by mouth 2 times a day.12/12/2021ctive amoxicillin (Amoxil) 500 mg capsule Take 2 capsules (1,000 mg) by mouth. Take 2 tablets equaling 1000 mg prior to procedure and 2 tablets equalling 62245 mg 6 hours after procedureActive ferrous sulfate 325 (65 Fe) MG EC tablet Take 65 mg by mouth once daily with breakfast. Do not crush, chew, or split. Active empagliflozin (Jardiance) 25 mg Take 1 tablet (25 mg) by mouth once daily.Active potassium chloride CR 20 mEq ER tablet Take 1 tablet (20 mEq) by mouth once daily. Do not crush or chew.Active levETIRAcetam (Keppra) 1,000 mg tablet Take 1 tablet (1,000 mg) by mouth 2 times a day.Active febuxostat (Uloric) 40 mg tablet Take 1 tablet (40 mg) by mouth once daily.Active metoprolol succinate XL (Toprol-XL) 25 mg 24 hr tablet Indications:Essential hypertensionTAKE 1 TABLET BY MOUTH DAILY 90 tablet ctive bumetanide (Bumex) 1 mg tablet Take 3 tablets (3 mg) by mouth 2 times daily (morning and late afternoon).Active aspirin 81 mg EC tablet Indications:Coronary artery disease involving hopi coronary artery of hopi heart without angina pectorisTake 1 tablet (81 mg) by mouth once daily. 504/ctive atorvastatin (Lipitor) 40 mg tablet Indications:Mixed hyperlipidemiaTake 1 tablet (40 mg) by mouth once daily at bedtime. 90 tablet 5Active atorvastatin (Lipitor) 40 mg tablet Indications:Mixed hyperlipidemiaTAKE 1 TABLET BY MOUTH AT BEDTIME 90 tablet Discontinued(Reorder) Active Problems ProblemNoted DateDiagnosed DateHistory of aortic valve replacement with bioprosthetic valve05/14/2024S/P left atrial appendage revofgfj73/02/2025S/P coronary artery bypass graft x Waldenstrom's macroglobulinemia 5BMI 26.0-26.9,adult08/07/2023oronary artery disease involving hopi coronary artery of hopi heart without angina uynyrhqv57/11/2023iabetes cjoayjfs30/11/2023Essential nahdutdfanzr02/11/8425Xoevikdpsbfl65/11/2023Murmur 11/22/2022aroxysmal atrial evbtprgtspaq46/11/2023 Resolved Problems ProblemNoted DateDiagnosed DateResolved DateH/O allograft aortic valve gwbjjgfspos28/12/202304/03/2024 Encounters DateTypeDepartmentCare AkxiQomybngogrw31/30/2025Scanned Document [facility] [address] [place] [address] Scanning, Generic Provider 12/08/2024Telephone [address] [place] [address] Rohini Amador LPN Medical Advice/Vahafbfk54/27/2025Refill [facility] [address] [address] Rohini Amador, BEHAVIOR MANAGEMENT SPECIALIST Mixed xprsrhfvcsfsym57/24/2025Scanned Document [facility] [address] [place] [address] Scanning, Generic Provider 12/03/2024Scanned Document [facility] [address] [place] [address] Scanning, Generic Provider 12/03/2024Orders Only [facility] [address] [place] [address] Geoff Edmondson MD 12/01/2024Telephone [address] [address] Danna Zhong LPN Advice Onlyfrom Last 3 Months Immunizations ImmunizationAdministration DatesNext DueFlu vaccine, trivalent, preservative free, HIGH-DOSE, age 65y+ (Fluzone)11/08/2023,3Pneumococcal conjugate vaccine, 13-valent (PREVNAR 13)1Pneumococcal polysaccharide vaccine, 23-valent, age 2 years and older (PNEUMOVAX 23)12/02/2019,11/13/2019 Family History Medical HistoryRelationNameCommentsHeart attackFatherAnemiaMotherHeart attack MotherHypertensionMotherRelationNameStatusCommentsFatherMother Social History Tobacco UseTypesPacks/DayYears UsedDateSmoking Tobacco: FormerCigarettes Smokeless Tobacco: Never Tobacco Cessation:Counseling Given: Not Answered Alcohol UseStandard Drinks/WeekCommentsNever0 (1 standard drink = 0.6 oz pure alcohol)Sex and Gender InformationValueDate RecordedSex Assigned at BirthNot on fileLegal ZlhCdns92/25/2022 9:36 PM ESTGender IdentityNot on fileSexual OrientationNot on file Last Filed Vital Signs Vital SignReadingTime TakenCommentsBlood Nwtpsmuv382/6404 11:13 AM EDT Yeyeg2474 11:13 AM EDTTemperature--Respiratory Rate--Oxygen Saturation 95%07/14/2022 12:11 PM EDTInhaled Oxygen Concentration--Qisqzr12.1 kg (170 lb) 05/14/2024 11:13 AM KEBLthrow595.7 cm (5' 8 )05/14/2024 11:13 AM EDTBody Mass Index25.85005/14/2024 11:13 AM EDT Plan of Treatment DateTypeDepartmentCare Team (Latest Contact Info)Zfurydzzgzr44/01/2025 9:30 AM ESTOffice Visit [facility] [address] [facility] [address] [place] [address] Daryl Durham MD [address] [facility] [address] [place] [address] 05/13/2025 8:30 AM EDTOffice Visit [address] [facility] [address] [place] [address] Daryl Durham MD [address] [facility] [address] [place] [address] Health MaintenanceDue DateLast DoneCommentsCT Fuuneqwfcnyd87/08/1950FIT-DNA (Cologuard)1949FIT1949Lipid Panel1949Medicare Annual Wellness Visit (AWV)1949Bfbumwbazbhgq75/08/1950MMR Vaccines (1 of 1 - Standard series)1Diabetes: Retinopathy Rswsybhjs23/08/1960Hepatitis C Screening 06/20/1967Zoster Vaccines (1 of 2)1968DTaP/Tdap/Td Vaccines (1 - Tdap) 06/20/1971Creatinine LevelPotassium Level07/05/2019 07/04/2018Diabetes: Hemoglobin A1C11/408/4RSV High Risk: (Elderly (60+) or Population) (1 - 1-dose 75+ series)5COVID-19 Vaccine ( season)509/, 01/25/2023, 01/26/2022, Additional history existsDiabetes: Urine Protein Vfhvrbgep39/07/434045/08/2024, 01/31/2023, 05/11/20213496Mrpqgtpempzrzx95/24/707289, 01/16/2024, 05/28/2022, Additional history qhhvjfGfcrkxcqkou36/04/208879/05/2020, 07/16/2020olorectal Cancer Fcqamrrjs43/04/2031Irritable Bowel IirfdpqlThpcsqzlpqvt74/04/2021neumococcal VbnjnpdWlayzpinx88/08/2021, 12/02/2019, 11/13/2019Abdominal Aortic Aneurysm (AAA) HrumrerbyFmxznpoog17/22/2022Influenza BkvvqseDklpsvdvp09/28/2025, 11/08/2023, 10/31/2022HIB VaccinesAged OutNo longer eligible based on patient's age to complete this topicHPV VaccinesAged OutNo longer eligible based on patient's age to complete this topicHepatitis A VaccinesAged OutNo longer eligible based on patient's age to complete this topicHepatitis B VaccinesAged OutNo longer eligible based on patient's age to complete this topicIPV Vaccines Aged OutNo longer eligible based on patient's age to complete this topic Meningococcal VaccineAged OutNo longer eligible based on patient's age to complete this topicRotavirus VaccinesAged OutNo longer eligible based on patient's age to complete this topic Procedures Procedure NamePriorityDate/TimeAssociated DiagnosisCommentsECHOCARDIOGRAM 12/05/2024 NON-[facility] AEROBIC XQPMWUGOupzlcp15/22/2025 3:27 AM EDT NON-[facility] GRAM VEWYNVhzuluk01/22/2025 3:27 AM EDT ELECTROLYTE TVPHWYdbqbft26/23/2019 9:00 AM EDT IOQUHOJIAGFyjnmjr53/23/2019 9:00 AM EDT from Last 3 Months or Most Recently Relevant to Health Maintenance Results * Echocardiogram (12/05/2024) Narrative 12/05/2024 Ordered by an unspecified provider. Authorizing ProviderResult TypeResult StatusGeneric Provider ScanningCV ECHO PROCEDURESFinal Result * NON-[facility] Gram Stain (12/03/2024 3:27 AM EDT)Specimen (Source)Anatomical Location / LateralityCollection Method / VolumeCollection TimeReceived Time [facility] [place]um zaqedqsk38/22/2025 3:27 AM EDT Narrative [facility] - 12/03/2024 5:49 AM EDT Gram Stain Result ??1+ White Blood Cells 1+ Epithelial Cells 1+ Gram Positive Cocci 1+ Gram Positive Bacilli Rare Gram Negative Bacilli PERFORMED BY: [facility] [address] [place] [address] PATHOLOGIST ARCHITECTURAL PRACTICE MANAGER JANNY LANDAVERDE M.D. Authorizing ProviderResult TypeResult StatusGeoff Edmondson [facility] BLOOD ORDERABLES Final ResultPerforming OrganizationAddressty/State/ZIP CodePhone Number [facility] [address] [place] [address], * NON-[facility] Aerobic Culture (12/03/2024 3:27 AM EDT)Specimen (Source)Anatomical Location / LateralityCollection Method / VolumeCollection TimeReceived Time [facility] [place]um adrofozp11/22/2025 3:27 AM EDT Narrative [facility] - 12/05/2024 9:59 AM EDT Moderate Normal Respiratory Sabrina ? 2 Days Gram Stain Result ??1+ White Blood Cells 1+ Epithelial Cells 1+ Gram Positive Cocci 1+ Gram Positive Bacilli Rare Gram Negative Bacilli PERFORMED BY: [facility] [address] [place] [address] PATHOLOGIST ARCHITECTURAL PRACTICE MANAGER JANNY LANDAVERDE M.D. Authorizing ProviderResult TypeResult StatusGeoff ESQUIVEL BLOOD ORDERABLES Final ResultPerforming OrganizationAddressty/State/ZIP CodePhone Number [facility] [address] [place] [address], * Creatinine (07/04/2018 9:00 AM EDT)ComponentValueRef RangeTest MethodAnalysis TimePerformed AtPathologist SignatureCreatinine1.100.50 - 1.30 mg/dLCLEVELAND CLINIC [facility] LABGLOMERULAR FILTRATION RATE-NON >60>60 mL/min/1.12c8NBTCBXCLEVELAND CLINIC M[facility]TH [facility]ITAL LABGLOMERULAR FILTRATION RATE->60>60 mL/min/1.51q4EXDUQRCLEVELAND CLINIC [facility] LABComment: CALCULATIONS OF ESTIMATED GFR ARE PERFORMED USING THE MDRD STUDY EQUATION FOR THE IDMS-TRACEABLE CREATININE METHODS. CLIN CHEM 2007;53:766-72 Specimen (Source)Anatomical Location / LateralityCollection Method / Volume Collection TimeReceived Time07/04/2018 9:00 AM EDT07/04/2018 6:44 PM EDT Narrative Authorizing ProviderResult TypeResult StatusAndrew ESQUIVEL BLOOD ORDERABLESFinal ResultPerforming OrganizationAddressCity/State/ZIP CodePhone Number [facility] * Electrolyte Panel (07/04/2018 9:00 AM EDT)ComponentValueRef RangeTest Method Analysis TimePerformed AtPathologist JnfgxeqdsGirven070542 - 145 mmol/[facility] LABPotassium3.53.5 - 5.3 mmol/[facility] Sitzeuyd43755 - 107 mmol/[facility] OHRKvswotrdjwj2153 - 32 mmol/L [facility] LABAnion Xxc9875 - 20 mmol/[facility] Specimen (Source)Anatomical Location / LateralityCollection Method / Volume Collection TimeReceived Time07/04/2018 9:00 AM EDT07/04/2018 6:44 PM EDT Narrative Authorizing ProviderResult TypeResult StatusAndrew ESQUIVEL BLOOD ORDERABLESFinal ResultPerforming OrganizationAddressty/State/ZIP CodePhone Number [facility] from Last 3 Months or Most Recently Relevant to Health Maintenance Insurance Care Teams Team MemberRelationshipSpecialtyStart DateEnd Date Denise Cade MD [address] [place] [address] [facility]07/04/18
--- OUTSIDE RECORDS SUMMARY | 2024-12-26 04:21 | XMS_ITS | Clinical Summary ---
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 Name Role Phone Denise Cade MD Unavailable [phone] Denise Cade MD Primary Care Provider [phone] Terrie Martin DO Unavailable [phone] Sarkis Raymundo MD Unavailable [phone] Denise Alarcon RN Unavailable [phone] Allergies Active AllergyReactionsCriticalityNoted AvhiLcqrzskuOcgagneyzrrJbhgjdr36/14/2024 IemtgemkhiYoqxtuh62/07/2024Metformin HclOther,GI /20/2022ulfa AntibioticsItching,SkqwVpv1808/21/2017 Was on bactrim and clindamycin concurrently, rash developed, most likely reaction to sulfa Sulfamethoxazole-GafsrtwcjtvkZegtqga94/20/8046FgnogqimhegiCxcozjp92/11/2021 Medications MedicationSigDispense QuantityRefillsLast FilledStart DateEnd DateStatus atorvastatin (Lipitor) 40 MG tablet 1 (one) time each day at the same timeActive OneTouch Ultra test strip 04/30/2022ctive cholecalciferol (Vitamin D-3) 50 MCG (1999 UT) tablet Take 2,000 Units by mouth in the morning. Started per neph.02/01/2023ctive ferrous sulfate 325 (65 Fe) MG tablet Take 325 mg by mouth in the morning. Take with meals.Active empagliflozin (Jardiance) 25 MG Indications:Type 2 diabetes mellitus with stage 3a chronic kidney disease, without long-term current use of insulin (HCC)Take 1 tablet (25 mg) by mouth Daily Per nephrology 90 tablet 4Active sildenafil (Viagra) 50 MG tablet Take 50 mg by mouth4Active aspirin 81 MG EC tablet Take 81 mg by mouth in the morning./ctive thiamine (Vitamin B-1) 100 MG tablet Indications:Thoracic outlet syndrome of left thoracic outletTake 1 tablet (100 mg) by mouth Daily 30 tablet 11008/04//6Active potassium chloride CR (K-Tab) 20 MEQ ER tablet Indications:HypokalemiaTake 1 tablet (20 mEq) by mouth Daily Do not crush, chew, or split. 90 tablet 5Active bumetanide (Bumex) 1 MG tablet Indications:Localized swelling of both upper extremities,Heart failure with reduced ejection fraction (HCC)TAKE 3 TABLETS BY MOUTH EVERY MORNING AND TAKE 3 TABLETS BY MOUTH EVERY EVENING BEFORE MEALS 540 tablet 5Active Additional Information Patient taking differently: 1 mg Oral Daily, (No times of day reported), 3 tabs in am and 3 tabs atnoon., Reported on 12/24/2024 febuxostat (Uloric) 40 MG tablet Indications:HyperuricemiaTAKE 1 TABLET BY MOUTH DAILY 30 tablet 5Active Continuous Glucose Sensor (FreeStyle [place] 3 Plus Sensor) [facility] [place]ications:Type 2 diabetes mellitus with stage 3a chronic kidney disease, without long-term current use of insulin ([facility])1 Application every 14 (fourteen) days 10 each 5Active Continuous Glucose Courtesy Booth Cashier (FreeStyle Fracisco 3 [place]) device Indications:Type 2 diabetes mellitus with stage 3a chronic kidney disease, without long-term current use of insulin ([facility])1 Device Daily 1 each 5Active pantoprazole (ProtoNix) 40 MG EC tablet Indications:Gastroesophageal reflux disease with esophagitis without hemorrhage Take 1 tablet (40 mg) by mouth in the morning. Take before meals. Do not crush, chew, or split. 30 tablet 6Active dexAMETHasone (Decadron) 2 MG tablet Indications:Thoracic outlet syndrome of left thoracic outletTake 1 tablet (2 mg) by mouth in the morning and 1 tablet (2 mg) at noon. Take with meals. 20 tablet 5Active SITagliptin (Januvia) 100 MG tablet Indications:Type 2 diabetes mellitus without complication, with long-term current use of insulin (HCC)Take 1 tablet (100 mg) by mouth Daily 90 tablet 5Active levETIRAcetam (Keppra) 500 MG tablet Take 500 mg by mouth in the morning and 500 mg before bedtime.Active biotin 32187 MCG tablet Take 1 tablet by mouth DailyActive Venetoclax (Venclexta) 100 MG tablet Take 100 tablets by mouth DailyActive zanubrutinib (Brukinsa) 80 MG chemo capsule Take 160 mg by mouth 2 (two) times a day. Oncology 2 in the AM 2 in the PM Discontinued(Therapy completed) levETIRAcetam (Keppra) 250 MG tablet Indications:Seizures (HCC)Take 1 tablet (250 mg) by mouth in the morning and 1 tablet (250 mg) before bedtime. 60 tablet Discontinued(Therapy completed) Januvia 100 MG tablet Indications:Type 2 diabetes mellitus without complication, with long-term current use of insulin (HCC)TAKE 1 TABLET BY MOUTH DAILY 90 tablet Discontinued(Reorder) azithromycin (Zithromax) 500 MG tablet Take 500 mg by mouth Daily12/24/2024Discontinued(Therapy completed) cefuroxime (Ceftin) 500 MG tablet Take 500 mg by mouth in the morning and 500 mg before bedtime.12/24/2024 Discontinued(Therapy completed) Active Problems ProblemNoted DateDiagnosed KqygDbmlsmznvfpxjbkamut03/03/2025Hyperuricemia 12/15/2024Iron uaibvjyzuq40/03/1103Hwhgghcvc79/03/2025 Assessment & Plan (12/16/2024 1:00 PM EST): Orders: XR chest 2 views; Future Volume /03/2025Diabetic nephropathy associated with type 2 diabetes /03/2025Spinal stenosis at L4-L5 level12/15/2024Thoracic outlet syndrome of left thoracic khlnbi9706/08/2024Erectile lyntdogvsda26/12/2025Renal mass03/26/2024Hypogammaglobulinemia, /06/2025Intractable acute post- traumatic /16/4137Tfea84/16/2024Insomnia due to medical condition 10/29/2023Left eaxlhmikcqc06/04/2024ilateral carpal tunnel sgibrura17/04/2024 Jmwhbyh8610/17/2023Heart failure with reduced ejection kmllanrf13/05/2024taxia 08/30/20237228Eugzgpphwj61/18/2849Dfudutabn73/18/8415Hhdndmgykg98/18/2024Fall from slip, trip, or xidrdjy5008/30/2023Superficial laceration of scalp08/30/2023MI 26.0-26.9,adult08/07/2023History of Waldenstrom's bhbgxzrgfdoidacdd98/02/2024 Tafixqsfp52/23/2024Sprain of foot06/05/2023IVC sumxoulqmx70/04/2024Localized swelling of both upper ryuduyxxewr34/04/4092Ugpqgxlbtr83/04/2024reop nfkrioxquzw87/04/2024ight leg /04/2024Thrombosis of right iliac vein 05/17/2023Stage 3b chronic kidney hzikgce8103/21/2023 Assessment & Plan (12/16/2024 1:00 PM EST): Orders: Basic metabolic panel; Future Assessment & Plan (10/09/2024 4:54 PM EDT): Seeing Dr Laws. Numbers have been stable. Assessment & Plan (10/09/2023 6:42 PM EDT): Seeing Dr Laws. Numbers have been stable. Assessment & Plan (03/21/2023 7:07 PM EST): Followed by nephrology, last appointment 03/09/23. Baseline creatinine 1.7-2 mg/dL. On Jardiance. Nephrology considering Kerendia per their note . Essential kknaveytrgfh92/13/2024H/O allograft aortic valve vbcmrnpsjig99/12/2023 Degenerative disease of nervous system, cjammkfnnku36/04/2023hronic bronchitis, unspecified chronic bronchitis type01/15/20238436Hphauh66/19/2023enign prostatic wzswecuqmli22/19/2023enign prostatic hyperplasia with urinary obstruction 10/31/2022Former yvimjr2510/31/2022Heart gorevx9210/31/2022High prostate specific antigen (PSA)10/31/2022History of anticoagulant cjifqfh0910/31/2022Microscopic blrghqhye76/19/2023typical qnqqei6408/02/2022enign essential hypertension 08/02/2022 Assessment & Plan (10/09/2024 4:54 PM EDT): Controlled on medications. Assessment & Plan (10/09/2023 6:39 PM EDT): Controlled on medications. Chronic iujmcwew20/21/2023ifficulty rysuacr3208/02/2022astro-esophageal reflux disease without pwzbuyusovr05/21/2318Rgntwoxqxoqr56/21/2023Mixed hyperlipidemia 08/02/2022 Assessment & Plan (10/09/2024 4:54 PM EDT): Assessment & Plan (10/09/2023 6:45 PM EDT): Continue lipitor. Other sequelae of cerebral przdfnxobi09/21/2023Type 2 diabetes mellitus with stage 3a chronic kidney disease, without long-term current use of insulin 08/02/2022 Assessment & Plan (10/31/2024 4:59 PM EDT): Orders: Continuous Glucose Sensor (FreeStyle Fracisco 3 Plus Sensor) misc; 1 Application every 14 (fourteen) days Continuous Glucose Courtesy Booth Cashier (FreeStyle Fracisco 3 [place]) device; 1 Device Daily Assessment & Plan (10/09/2024 1:03 PM EDT): A1c well controlled. Assessment & Plan (08/26/2024 12:04 PM EDT): Orders: POCT glycosylated hemoglobin (Hb A1C) docked device Assessment & Plan (03/21/2023 7:00 PM EST): Home readings elevated. Currently on Januvia 100mg and Jardiance 25mg. Initiae Lantus 6 units daily. On an ASA and a statin. Micro UTD. Plantar wart, left foot08/02/2022TIA (transient ischemic attack)08/02/2022ing- Adan /21/2023 Assessment & Plan (12/16/2024 1:00 PM EST): Per neuro and oncology. Has an MRI tomorrow. Assessment & Plan (10/09/2024 4:54 PM EDT): Assessment & Plan (10/09/2023 6:39 PM EDT): Continues to have episodes. Question if Radha-Adan vs seizure vs TIA. Has seen neuro and oncology. Doubt seizure. Assessment & Plan (10/31/2022 5:19 PM EDT): Had another episode in September. Question if Radha-Adan vs seizure vs TIA. Has seen neuro and getting another MRI done soon. Primary malignant neoplasm of blood gtrseo0506/06/2022rimary hypertension 04/13/2022 Overview (08/21/2022): History: Home meds atenolol, losartanAssessment: controlled Plan: Continue metoprolol. Uyrlgpcx28/01/2023 Overview (08/02/2022): History: on Keppra 1000 mg BID prior to admission Assessment: No witnessed seizures this hospitalization - EEG has been on as well and noevidence of seizure (now off). Plan: Resumed home dose keppra, monitor neuro status closely, Continue Keppra for now. MRI completed, Neuro/Oc consulted per Neurology Assessment & Plan (10/09/2023 6:41 PM EDT): Continue keppra. Assessment & Plan (03/21/2023 6:48 PM EST): Followed by Dr. Martin, last visit 01/16/23. On Keppra 1000mg BID. Off seizure precautions Atherosclerosis of hop[place] coronary artery without angina xdullyas16/08/2023 Overview (08/02/2022): History: CAD Assessment: 04/12/2022: AVR (Tissue) # 23, CABG (SVG-LAD), MAZE, Left atrial appanage clip Plan: CAD Core Measures: Aspirin: Yes Beta blockers: Yes Statins: Yes. Assessment & Plan (10/09/2024 4:54 PM EDT): History: CAD Assessment: 04/12/2022: AVR (Tissue) # 23, CABG (SVG-LAD), MAZE, Left atrial appanage clip Plan: CAD Core Measures: Aspirin: Yes Beta blockers: Yes Statins: Yes. Assessment & Plan (10/09/2023 6:39 PM EDT): History: CAD Assessment: 04/12/2022: AVR (Tissue) # 23, CABG (SVG-LAD), MAZE, Left atrial appanage clip Plan: CAD Core Measures: Aspirin: Yes Beta blockers: Yes Statins: Yes. Assessment & Plan (02/24/2023 10:25 AM EST): History: CAD Assessment: 04/12/2022: AVR (Tissue) # 23, CABG (SVG-LAD), MAZE, Left atrial appanage clip Plan: CAD Core Measures: Aspirin: Yes Beta blockers: Yes Statins: Yes. Nonrheumatic aortic valve naiglqdy64/08/2023 Overview (08/02/2022): History: per pre- op echo: There is moderately severe aortic valve stenosis caused by calcified valve and restricted opening. There is mild (1+) aortic valve regurgitation. There is moderate thickening. There is severe calcification. Assessment: 04/12/2022: AVR (Tissue) # 23, CABG (SVG-LAD), MAZE, Left atrial appendage clip Plan: ASA. Echo & surg path reviewed. Repeat echo with gradients 06/14. Paroxysmal atrial ouvaxubpfpat44/08/2023 Overview (08/02/2022): History: pAF. On maintenance dose of Amiodarone at home, no AC. Assessment: 04/12/2022: AVR (Tissue) # 23, CABG (SVG-LAD), MAZE, Left atrial appendage clip. Arrived to ICU with junctional rhythm, now SR Plan: Maintaining SR, Continue metoprolol. Do not intend to add AC as risk outweighs benefit per AW Assessment & Plan (02/24/2023 10:26 AM EST): Continue medications per cardiology- amiodarone. Sees Dr Huynh and [facility] surgeons as well. Rate control with beta tigre but no AC. Coronary artery disease involving hop[place] coronary artery of hop[place] heart without angina ibsvvldc51/08/2023 Overview (08/21/2022): History: CAD Assessment: 04/12/2022: AVR (Tissue) # 23, CABG (SVG-LAD), MAZE, Left atrial appanage clip Plan: CAD Core Measures: Aspirin: Yes Beta blockers: Yes Statins: Yes. Maxillary txmxkxuwl13/21/2020Exacerbation of intermittent httery6411/27/2017 Waldenstrom's mcqbflbpqhwiqzlnn13/29/2012 Overview (08/02/2022): History: Present on admission, Assessment: Managed with zanubrutinib Plan: Spoke with heme/onc - has appt. 05/02 with nik Lindsay - hold zanubrutinib & he will advise regarding resumption at that time Assessment & Plan (10/09/2024 4:54 PM EDT): Assessment & Plan (10/09/2023 6:45 PM EDT): Seeing [facility] Sunday. Medications per oncology. Assessment & Plan (03/21/2023 7:01 PM EST): Followed by Dr. Lindsay. Currently on Bruniska Resolved Problems ProblemNoted DateDiagnosed DateResolved DateSleep qklolpawjhd59/16/2024 03/31/20243308Wkbgmiqpmui00//Numbness08/// Vedaszhethfdb20/21//hronic kidney disease, stage 2 (mild) /08/2023Junctional irxvrf39/01// Overview (08/02/2022): History: post op Assessment: On initial post op EKG. Now SR. Plan: VVI backup at 50 bpm mA 8 (threshold 4 mA). Type 2 diabetes mellitus without obxbsedflpgry59 Overview (08/02/2022): History: No recent Hgb A1C on file. On Febuvia Assessment: Perioperative insulin resistance and exacerbation of hyperglycemia Plan: accuchecks and SSI. Cont Januvia. Carb restricted diet Assessment & Plan (02/24/2023 10:27 AM EST): A1c / at 6.9. Continue medications. Assessment & Plan (10/31/2022 5:18 PM EDT): A1c 9/23 at 6.9. Continue medications. Type 2 diabetes mellitus without complication, without long-term current use of vtzbmqi18 Overview (08/21/2022): History: No recent Hgb A1C on file. On Assessment: Perioperative insulin resistance and exacerbation of hyperglycemia Plan: accuchecks and SSI. Cont Januvia. Carb restricted diet Encounters DateTypeDepartmentCare PnstXavyonkiysl20/11/2025[facility]phone [facility] [address] [place] [address] Evelyn Carpenter MA 12/23/2024Patient Outreach [facility] [address] [place] [address] Denise Alarcon RN 12/22/2024Telephone [facility] [place] [facility] [address] [place] [address] Sendy Pittman MA 12/19/2024bstract [facility] [place] [facility] [address] [place] [address] Lowell Wright DO 12/16/2024 11:00 AM ESTAncillary Procedure [facility] [address] [facility] [address] [place] [address] Pneumonia due to infectious organism, unspecified laterality, unspecified part of lung12/16/2024 10:20 AM ESTOffice Visit [facility] [address] [place] [facility] [place] [address] Denise Cade MD Type 2 diabetes mellitus without complication, with long-term current use of insulin (HCC) (PrimaryDx); Stage 3b chronic kidney disease ([facility]-HCC); Pneumonia due to infectious organism, unspecified laterality, unspecified part of lung; Waldenstrom macroglobulinemia not having achieved remission (HCC); Radha-Adan vntcdggi86/04/2025Results Follow-Up [facility] [address] [place] [address] Denise Cade MD XR chest 2 views, Basic metabolic panel, POCT mcdfczi7612/16/20243204Qgrekc74/03/2025 10:40 AM ESTOffice Visit [facility] [address] [place] [address] David Booker MD Seizures (HCC) (Primary Dx); Gastroesophageal reflux disease with esophagitis without hemorrhage; Thoracic outlet syndrome of left thoracic outlet; Spinal stenosis at L4-L5 level12/15/2024amboo flowsheet [facility] [address] [place] [address] David Booker MD 12/15/20248839Ubgwva18/29/2025Patient Outreach [facility] [address] [place] [address] Denise Alarcon RN 12/08/2024Patient Outreach [facility] [address] [place] [address] Denise Alarcon RN 12/05/2024bstract [facility] [address] [place] [address] Denise Cade MD 12/03/2024bstract [facility] [address] [place] [address] Denise Cade MD 12/03/2024Patient Outreach [facility] [address] [place] [address] Denise Alarcon RN 11/28/2024Patient Outreach [facility] [address] [place] [address] Denise Alarcon RN 11/27/2024Patient Outreach [facility] [address] [place] [address] Denise Alarcon RN 11/26/2024bstract [facility] [address] [place] [address] Denise Cade MD 11/25/2024 12:00 PM EDTOffice Visit [facility] [address] [facility] [place] [address] Ruthie Mercer NP Peripheral vascular disease, unspecified (Primary Dx)11/25/2024amboo flowsheet [facility] [address] [facility] [place] [address] Ruthie Mercer NP 11/25/20243957Gghizp73/13/2025 8:30 AM EDTProcedure Visit [facility] [address] [place] [address] Sarkis Lo, LIA Dermatophytosis of nail (Primary Dx); Dystrophic nail; Pain around toenail, right foot; Pain around toenail, left foot11/24/20242794Rbjdpj87/09/4750Vqugdb96/02/2025Patient Outreach [facility] [address] [facility] [place] [address] Denise Alarcon RN 11/12/2024Patient Outreach [facility] [address] [facility] [place] [address] Denise Alarcon, JUAN JOSE 11/12/2024Patient Outreach [facility] [address] [place] [address] Denise Alarcon, JUAN JOSE 11/12/2024Telephone [facility] [address] [place] [address] Denise Cade MD 11/11/2024 3:45 PM EDTAncillary Procedure [facility] [address] [address] [facility] [place] [address] Left foot pain; Blue toes; Peripheral vascular disease, puzwyrwoevg53/30/2025 2:40 PM EDTOffice Visit [facility] [address] [place] [address] Denise Cade MD Left foot pain (Primary Dx); Blue toes; Peripheral vascular disease, rhyhibgcmuj07/30/4760Tyyvzc94/30/2025Patient Outreach [facility] [address] [place] [address] Denise Alarcon RN 11/07/2024 9:30 AM EDTOffice Visit [facility] [address] [facility] [place] [address] Ruthie Mercer NP Erythema (Primary Dx)11/07/2024 9:00 AM EDTAncillary Procedure [facility] [address] [facility] [address] [place] [address] Injury of left foot, initial tbcobcmux08/26/2025Clinisync Result Encounter [facility] External Department Unsolicited Provider, Generic External Data 11/07/2024Results Follow-Up [facility] [address] [facility] [place] [address] Ruthie Mercer NP XR foot 3+ views left11/07/2024Patient Outreach [facility] [address] [place] [address] Denise Alarcon RN 11/07/20246432Mheflr77/26/2025Patient Outreach [facility] [address] [place] [address] Denise Alarcon RN 11/03/2024Patient Outreach [facility] [address] [place] [address] Denise Alarcon RN 10/31/2024 2:30 PM EDTOffice Visit [facility] [address] [facility] [place] [address] Ruthie Mercer NP Elevated PSA (Primary Dx); Type 2 diabetes mellitus with stage 3a chronic kidney disease, without long-term current use of insulin (HCC); Cellulitis of foot; Edema of left foot5Bamboo flowsheet [facility] [address] [facility] [place] [address] Ruthie Mercer NP 10/31/20246385Zjhifs66/17/2025Patient Outreach [facility] [address] [place] [address] Denise Alarcon RN 10/29/2024Refill [facility] [address] [place] [address] Denise Cade MD Gysxpwwlopvrc20/16/2025Telephone [facility] [address] [place] [address] Kasia Benton, JUAN JOSE 10/27/2024 11:00 AM EDTOffice Visit [facility] [address] [place] [facility] [place] [address] Ruthie Mercer NP Cellulitis of foot (Primary Dx)10/27/20241023Stwjlw13/15/2025Patient Outreach [facility] [address] [place] [address] Denise Alarcon RN 10/24/2024Patient Outreach [facility] [address] [place] [address] Denise Alarcon RN 10/23/2024 10:20 AM EDTFollow-Up [facility] [address] [place] [address] Denise Cade MD Cellulitis of foot (Primary Dx)10/23/2024Telephone [facility] [address] [place] [place] [address] Denise Cade MD 10/23/20241740Ljitqw46/10/2025 2:00 PM EDTAncillary Procedure [facility] [address] [place] [address] Left foot pain; Edema of left foot10/22/20242389Breauc88/10/2025Results Follow-Up [facility] [address] [place] [address] Ruthie Mercer NP PSA10/22/2024Results Follow-Up [facility] [address] [place] [address] Heather Gutierrez NP Comprehensive metabolic panel, CBC and differential, Uric acid, XR foot 3+ views left10/21/2024 12:00 PM EDTOffice Visit [facility] [address] [place] [address] Heather Gutierrez NP Left foot pain (Primary Dx); Edema of left foot; Skin uhsnohbwf54/09/2025 10:30 AM EDTAncillary Procedure [facility] [address] [facility] [address] [place] [address] Left foot pain10/21/2024bstract [place] [address] [facility] [place] [address] Heather Gutierrez NP 10/21/2024Telephone [place] [address] [facility] [place] [address] Denise Cade MD 10/21/2024amboo flowsheet [address] [facility] [place] [address] Heather Gutierrez NP 10/21/20248495Onhazw30/07/2025Refill [facility] [address] [address] Ruthie Mercer NP Localized swelling of both upper extremities; Heart failure with reduced ejection fraction (HCC)10/15/2024Patient Outreach [facility] [address] [place] [address] Denies Alarcon RN 10/15/2024Telephone [address] [place] [address] Denise Cade MD 10/15/2024linisync Result Encounter [facility] External Department Unsolicited Provider, Generic External Data 10/10/2024Telephone [facility] [address] [facility] [place] [address] Denise Cade MD 10/09/2024 9:30 AM EDTOffice Visit [facility] [address] [place] [address] Denise Cade MD Wellness examination (Primary Dx); Elevated PSA; Radha-Adan syndrome; Atherosclerosis of [place] coronary artery of [place] heart without angina pectoris ; Benign essential hypertension ; Stage 3b chronic kidney disease ([facility]-HCC); Waldenstrom's macroglobulinemia ; Mixed hyperlipidemia ; Type 2 diabetes mellitus with stage 3b chronic kidney disease, without long-term current use of insulin ([facility]); Encounter for nltdkirmqqcr88/28/2025Patient Outreach [address] [address] Denise Alarcon RN 10/09/2024amboo flowsheet [facility] [address] [facility] [place] [address] Denise Cade MD 10/09/2024Travelfrom Last 3 Months Immunizations ImmunizationAdministration DatesNext DueInfluenza, High Dose Seasonal, Preservative Free10/09/2024,11/08/2023,10/31/2022,01/11/2022Influenza, High-dose Seasonal, Quadrivalent, Preservative Free01/11/2022,1Pfizer Purple Cap SARS-CoV-2 Xvqmzraxupm40/01/2021,1Pneumococcal Conjugate PCV 13 1Pneumococcal Polysaccharide OAHX0101,11/13/20194219FEHH-DYB-9 (COVID-19) vaccine, mRNA, spike protein, LNP, PF, marilou-sucrose, 30 mcg/0.3 mL 11/08/20232191IQJG-IFE-4 (COVID-19) vaccine, mRNA, spike protein, LNP, bivalent, preservative free, 30 mcg/0.3 mLdose, marilou-sucrose ahbuhdtkrhi30/15/2022Tdap 10/29/2022,12/26/2012 Family History Medical HistoryRelationNameCommentsCoronary artery diseaseOtherRelationName StatusCommentsFatherDeceasedMotherDeceasedOtherSonAlive Social History Tobacco UseTypesPacks/DayYears UsedDateSmoking Tobacco: FormerCigarettes Smokeless Tobacco: Never Tobacco Cessation:Counseling Given: Not Answered Alcohol UseStandard Drinks/WeekCommentsNever0 (1 standard drink = 0.6 oz pure alcohol)Caffeine intake: 1 cups per dayPHQ-2AnswerDate RecordedPatient Health Questionnaire-2 Ifaav551Sex and Gender InformationValueDate RecordedSex Assigned at BirthNot on fileLegal KuiNdou4904/26/2022 7:10 PM EDTGender Identity Male04/26/2022 7:10 PM EDTSexual OrientationNot on file Last Filed Vital Signs Vital SignReadingTime TakenCommentsBlood Xhdwcyzv440/6011 10:19 AM EST Ngzyk5544/04/2025 10:19 AM JQEDpjrommxfcu10.3 ??C (97.3 ??F)08/26/2024 11:35 AM EDTRespiratory Qaeq329008/19/2024 2:24 PM EDTOxygen Thxntiiscm04%12/16/2024 10:19 AM ESTInhaled Oxygen Concentration--Mqggmx27.3 kg (166 lb)12/16/2024 10:19 AM ENNTezzmm568.3 cm (5' 9 )12/16/2024 10:19 AM ESTBody Mass Index24.51102/16/2024 10:19 AM EST Plan of Treatment DateTypeDepartmentCare Team (Latest Contact Info)Kqlkvdjbspa85/22/2025 10:00 AM ESTOffice Visit [facility] [address] [facility] [address] [place] [address] David Booker MD [address] [facility] [address] [place] [address] 03/30/2025 8:30 AM ESTProcedure Visit [facility] [address] [place] [phone] Sarkis Lo, DPM [address] [place] [address] Health MaintenanceDue DateLast DoneCommentsCT Holisgljsnrc09/08/1950FIT-DNA 1949FIT1949FOBT1949 7030Lffhppuukgnnq17/08/1950COVID-19 Vaccine ( season), 01/25/2023, 05/31/2021, Additional history existsDiabetes: Hemoglobin A1C, 03/26/2024, 09/16/2023, Additional history existsDiabetes: Urine Protein Tcjsmranv97/07/2026 03/21/2024, 01/31/2023, 01/31/2023, Additional history existsDiabetes: Retinopathy Dzlwlgwet88/, 04/13/2021, 12/12/2017Colonoscopy 106/05/2020, 07/16/2020olorectal Cancer Pkfgwmuxt10/04/2031 Pneumococcal Vaccine: 65+ UjzydXtajpfqjl47/08/2021, 12/02/2019, 11/13/2019 Influenza YlkiduuVblnerjnd95/28/2025, 11/08/2023, 10/31/2022, Additional history exists Procedures Procedure NamePriorityDate/TimeAssociated DiagnosisCommentsXR CHEST 2 VIEWS Maynown3112/16/2024 11:25 AM EST Pneumonia due to infectious organism, unspecified laterality, unspecified part of lung POCT HSGDROPGbsttgc88/04/2025 10:59 AM EST Type 2 diabetes mellitus without complication, with long-term current use of insulin (HCC) BASIC METABOLIC EHVXFYrxgndl06/04/2025 10:58 AM EST Stage 3b chronic kidney disease ([facility]-HCC) [facility] US LOWER EXTREMITY ARTERIAL DUPLEX VDARPSSAXMQIP58/30/2025 4:25 PM EDT Left foot pain Blue toes Peripheral vascular disease, unspecified [facility] URATE SERPL-DOCCAoyzjqt62/26/2025 1:36 PM EDT XR FOOT 3+ VIEWS DFDUHoskdyi20/26/2025 10:01 AM EDT Injury of left foot, initial encounter [facility] US LOWER EXTREMITY VENOUS DUPLEX UULJDlootep46/10/2025 2:12 PM EDT Left foot pain Edema of left foot XR FOOT 3+ VIEWS KNTKUckhrvz31/09/2025 11:22 AM EDT Left foot pain URIC OMHNIqykduq44/09/2025 10:58 AM EDT Edema of left foot CBC (INCLUDES DIFF/PLT)Bhzzuiv9710/21/2024 10:58 AM EDT Edema of left foot COMPREHENSIVE METABOLIC SUNHJFzinfwo38/09/2025 10:58 AM EDT Edema of left foot PSA, XIVWAMmvrruc49/09/2025 10:57 AM EDT Elevated PSA [facility] PROTEIN ELECTROPHORESIS SERUM (P)Osnetcm5410/15/2024 10:40 AM EDT [facility] IMMUNOFIXATION SCREEN, FDRLEZojzybi51/03/2025 10:40 AM EDT [facility] IMMUNOGLOBULINS OGDYcaxttj05/03/2025 10:40 AM EDT ALL KAPPA/LAMBDA FREE NOKVRThfgond85/03/2025 10:40 AM EDT [facility] PROT SERPL-GVJELvlzzem09/03/2025 10:40 AM EDT [facility] COMP METAB 2000 PNL NJTLBMvgslvv21/03/2025 10:40 AM EDT [facility] CBC W AUTO DIFF XTKQautmtz46/03/2025 10:40 AM EDT POCT GLYCOSYLATED HEMOGLOBIN (HGB A1C)Riphlkm4508/26/2024 11:51 AM EDT Type 2 diabetes mellitus with stage 3a chronic kidney disease, without long-term current use of insulin (HCC) MICROALBUMIN / CREATININE URINE WOOMOKoawatj02/07/2025 9:15 AM EST Type 2 diabetes mellitus with stage 3a chronic kidney disease, without long-term current use of insulin (HCC) DIABETIC RETINOPATHY SCREENING - OU - BOTH PUEVBbbnhkf82/18/2024 10:30 AM EDT GMTQMKKUABEKcrjdld78/04/2021 12:00 PM EDT from Last 3 Months or Most Recently Relevant to Health Maintenance Results * XR chest 2 views (12/16/2024 [...] BY: Tom Green MD Authorizing ProviderResult TypeResult Bud Cade MDIMG XR PROCEDURES Final Result * POCT glucose (12/16/2024 10:59 AM EST)ComponentValueRef RangeTest Method Analysis TimePerformed AtPathologist SignatureGlucose Blood, RBZ563cw/dL Specimen (Source)Anatomical Location / LateralityCollection Method / Volume Collection TimeReceived TimeBloodCapillary blood specimen / Pddqvwb3612/16/2024 10:59 AM EST Narrative Authorizing ProviderResult TypeResult Bud Cade MDPOINT OF CARE TEST ENTER/EDIT ORDERABLESFinal Result * (ABNORMAL) Basic metabolic panel (12/16/2024 10:58 AM EST)ComponentValueRef RangeTest MethodAnalysis TimePerformed AtPathologist WottavfekWopurkg872(H)65 - 99 mg/dLQUESTComment: ? Fasting reference interval For someone without known diabetes, a glucose value >125 mg/dL indicates that they may have diabetes and this should be confirmed with a follow-up test. BUN33(H)7 - 25 mg/dLQUESTCreatinine1.64(H)0.70 - 1.28 mg/qOWSUFAAMFC09(L)> OR = 60 mL/min/1.46k9KISJMJRU/CREATININE QWSQT761 - 22 (calc)RQDISEdjpvc390(L)135 - 146 mmol/LQUESTPotassium, Bld4.13.5 - 5.3 mmol/VVMAXTIcomlsqk81(L)98 - 110 mmol/LQUESTCarbon Pdvrfcb0058 - 32 mmol/LQUESTCalcium9.38.6 - 10.3 mg/dLQUEST Specimen (Source)Anatomical Location / LateralityCollection Method / Volume Collection TimeReceived TimeBloodVenous blood specimen / Ajbqrfl6612/16/2024 10:58 AM EST12/16/2024 10:58 AM EST Narrative Resulting Agency Comment Performing Organization Information ?Site ID: QPT ?Name: [employer] [facility] ?Address: [address] [place] [address], [address] [place] [phone] ?Director: Placido Mas MD Authorizing ProviderResult TypeResult StatusDenise Cade MDLAB BLOOD ORDERABLESFinal ResultPerforming OrganizationAddressCity/State/ZIP CodePhone Number QUEST * Vascular US lower extremity arterial duplex bilateral (11/11/2024 4:25 PM EDT) Anatomical RegionLateralityModalityLower ExtremitiesUltrasoundSpecimen (Source)Anatomical Location / LateralityCollection Method / VolumeCollection TimeReceived Time11/12/2024 9:05 AM EDT Impressions 11/12/2024 9:13 AM EDT NO EVIDENCE OF A FLOW-LIMITING STENOSIS, ARTERIAL OCCLUSION, OR ANEURYSM. ELECTRONICALLY SIGNED BY: Tom Green MD Narrative 11/12/2024 9:13 AM EDT [facility] LOWER EXTREMITY ARTERIAL DUPLEX BILATERAL: 11/11/2024 4:25 PM CLINICAL HISTORY: blue toes, swelling, pain. COMPARISON: None available. Grayscale, color and waveform Doppler analysis of both lower extremity arterial systems was performed. FINDINGS: Within the right leg, biphasic waveforms from the DIRECTOR TALENT ACQUISITION through popliteal artery, triphasic waveformsin the right peroneal artery, monophasic waveforms in the right SECURITY CHECKER, and biphasic waveforms in the right VIDA. Within the left leg, biphasic waveforms in the DIRECTOR TALENT ACQUISITION, proximal SFA SFA, SECURITY CHECKER, VIDA, and triphasic waveforms in the mid to distal SFA, popliteal artery and peroneal artery. There are no significantly elevated velocities to suggest a flow-limiting stenosis, or arterial occlusion. The arterial system is normal in caliber, without evidence of aneurysm or dissection. Limited evaluation of the left foot area of pain was performed and is grossly unremarkable sonographically. Maximum systolic velocities are: RIGHT LOWER EXTREMITY: Right common femoral artery 134 cm/s. Right proximal superficial femoral artery 75 cm/s. Right mid superficial femoral artery 101 cm/s. Right distal superficial femoral artery 102 cm/s. Right popliteal artery 87 cm/s. Right mid anterior tibial artery 68 cm/s. Right proximal posterior tibial artery 73 cm/s. Right mid posterior tibial artery 48 cm/s. Right distal posterior tibial artery 52 cm/s. Right peroneal artery 87 cm/s. LEFT LOWER EXTREMITY: Left common femoral artery 103 cm/s. Left proximal superficial femoral artery 87 cm/s. Left mid superficial femoral artery 88 cm/s. Left distal superficial femoral artery 92 cm/s. Left popliteal artery 80 cm/s. Left mid anterior tibial artery 74 cm/s. Left proximal posterior tibial artery 78 cm/s. Left mid posterior tibial artery 65 cm/s. Left distal posterior tibial artery 104 cm/s. Left peroneal artery 99 cm/s. Procedure Note Tom Green MD - 11/12/2024 [facility] LOWER EXTREMITY ARTERIAL DUPLEX BILATERAL: 11/11/2024 4:25 PM CLINICAL HISTORY: blue toes, swelling, pain. COMPARISON: None available. Grayscale, color and waveform Doppler analysis of both lower extremityarterial systems was performed. FINDINGS: Within the right leg, biphasic waveforms from the DIRECTOR TALENT ACQUISITION through poplitealartery, triphasic waveforms in the right peroneal artery, monophasicwaveforms in the right SECURITY CHECKER, and biphasic waveforms in the right VIDA. Within the left leg, biphasic waveforms in the DIRECTOR TALENT ACQUISITION, proximal SFA SFA, SECURITY CHECKER,VIDA, and triphasic waveforms in the mid to distal SFA, popliteal arteryand peroneal artery. There are no significantly elevated velocities to suggest a flow-limiting stenosis, or arterial occlusion. The arterial system is normal in caliber, without evidence of aneurysm or dissection. Limited evaluation of the left foot area of pain was performed and isgrossly unremarkable sonographically. Maximum systolic velocities are: RIGHT LOWER EXTREMITY: Right common femoral artery 134 cm/s. Right proximal superficial femoral artery 75 cm/s. Right mid superficial femoral artery 101 cm/s. Right distal superficial femoral artery 102 cm/s. Right popliteal artery 87 cm/s. Right mid anterior tibial artery 68 cm/s. Right proximal posterior tibial artery 73 cm/s. Right mid posterior tibial artery 48 cm/s. Right distal posterior tibial artery 52 cm/s. Right peroneal artery 87 cm/s. LEFT LOWER EXTREMITY: Left common femoral artery 103 cm/s. Left proximal superficial femoral artery 87 cm/s. Left mid superficial femoral artery 88 cm/s. Left distal superficial femoral artery 92 cm/s. Left popliteal artery 80 cm/s. Left mid anterior tibial artery 74 cm/s. Left proximal posterior tibial artery 78 cm/s. Left mid posterior tibial artery 65 cm/s. Left distal posterior tibial artery 104 cm/s. Left peroneal artery 99 cm/s. IMPRESSION: NO EVIDENCE OF A FLOW-LIMITING STENOSIS, ARTERIAL OCCLUSION, ORANEURYSM. ELECTRONICALLY SIGNED BY: Tom Green MD Authorizing ProviderResult TypeResult StatusDenise Cade MDIMPepe US PROCEDURES Final Result * [facility] URATE SERPL-MCNC (11/07/2024 1:36 PM EDT)ComponentValueRef RangeTest MethodAnalysis TimePerformed AtPathologist SignatureCCF URATE SERPL-MCNC5.44.0 - 8.1 mg/dLCCFSpecimen (Source)Anatomical Location / LateralityCollection Method / VolumeCollection TimeReceived Time11/07/2024 1:36 PM EDT11/07/2024 1:36 PM EDT Narrative CLINISYNC - 11/07/2024 2:09 PM EDT Specimen Type: BLOOD SPECIMEN Ordering Facility: [facility] ?Address: [address] [place] [address] Original Ordering Provider: CLEMENTE THOMAS Authorizing ProviderResult TypeResult StatusGeneric External Data Provider CLINISYNCFinal ResultPerforming OrganizationAddressCity/State/ZIP CodePhone Number [address] [phone] * XR foot 3+ views left (11/07/2024 10:01 AM EDT) Only the most recent of2 resultswithin the time period is included. Anatomical RegionLateralityModalityLower Extremities, FootLeftRadiographic ImagingSpecimen (Source)Anatomical Location / LateralityCollection Method / VolumeCollection TimeReceived Time11/07/2024 11:55 AM EDT Impressions 11/07/2024 11:56 AM EDT No acute osseous abnormality or significant interval change. ELECTRONICALLY SIGNED BY: Jayjay Becerra DO Narrative 11/07/2024 11:56 AM EDT EXAM: XR FOOT 3+ VIEWS LEFT COMPARISON: Radiographs October 21, 2024 HISTORY: Foot pain TECHNIQUE: 3 views of the foot obtained. FINDINGS: No acute fracture or dislocation. Advanced degenerative changes at the first metatarsophalangeal joint. Os peroneum atherosclerotic vascular calcifications. Soft tissue edema of the foot greatest dorsally. Procedure Note Mariam, Jayjay J, DO - 11/07/2024 EXAM: XR FOOT 3+ VIEWS LEFT COMPARISON: Radiographs October 21, 2024 HISTORY: Foot pain TECHNIQUE: 3 views of the foot obtained. FINDINGS: No acute fracture or dislocation. Advanced degenerative changes at thefirst metatarsophalangeal joint. Os peroneum atherosclerotic vascularcalcifications. Soft tissue edema of the foot greatest dorsally. IMPRESSION: No acute osseous abnormality or significant interval change. ELECTRONICALLY SIGNED BY: Jayjay Becerra DO Authorizing ProviderResult TypeResult StatusSamaggie Mercer NPIMG XR PROCEDURES Final Result * Vascular US lower extremity venous duplex left (10/22/2024 2:12 PM EDT) Anatomical RegionLateralityModalityLower ExtremitiesUltrasoundSpecimen (Source)Anatomical Location / LateralityCollection Method / VolumeCollection TimeReceived Time10/23/2024 11:35 AM EDT Impressions 10/23/2024 11:47 AM EDT No sonographic evidence of deep venous thrombosis of the left lower extremity. ELECTRONICALLY SIGNED BY: Jayjay Becerra DO Narrative 10/23/2024 11:47 AM EDT EXAM: VASC US LOWER EXTREMITY VENOUS DUPLEX LEFT TECHNIQUE: LEFT lower extremity venous duplex exam was performed. HISTORY: left lower extremity pain and swelling. FINDINGS: The common femoral, femoral, deep femoral, popliteal and calf veins were evaluated for deep venous thrombosis. ??The veins were evaluated with color Doppler imaging, compression and augmentation if possible. ??No sonographic evidence of deep venous thrombosis. Nonspecific left inguinal lymph node me asures approximately 2.6 x 2.5 x 1 cm. Procedure Note Jayjay Becerra DO - 10/23/2024 EXAM: VASC US LOWER EXTREMITY VENOUS DUPLEX LEFT TECHNIQUE: LEFT lower extremity venous duplex exam was performed. HISTORY: left lower extremity pain and swelling. FINDINGS: The common femoral, femoral, deep femoral, popliteal and calf veins were evaluated for deep venous thrombosis. The veins were evaluated with colorDoppler imaging, compression and augmentation if possible. No sonographicevidence of deep venous thrombosis. Nonspecific left inguinal lymph nodemeasures approximately 2.6 x 2.5 x 1 cm. IMPRESSION: No sonographic evidence of deep venous thrombosis of the left lowerextremity. ELECTRONICALLY SIGNED BY: Jayjay Becerra DO Authorizing ProviderResult TypeResult StatusChristy Jacque Gutierrez NPPepe US PROCEDURESFinal Result * (ABNORMAL) CBC and differential (10/21/2024 10:58 AM EDT)ComponentValueRef RangeTest MethodAnalysis TimePerformed AtPathologist SignatureWHITE BLOOD CELL COUNT7.13.8 - 10.8 Thousand/uLQUESTRED BLOOD CELL COUNT3.78(L)4.20 - 5.80 Million/gXUIUYQMKMRRKNTWF45.5(L)13.2 - 17.1 g/pQMIMOKCNCPRBLTPS42.4(L)38.5 - 50.0 %XPGLXPOF81.780.0 - 100.0 hREAWATCCZ22.427.0 - 33.0 jjBKUMZZDGX67.532.0 - 36.0 g/dLQUESTComment: For adults, a slight decrease in the calculated MCHC value (in the range of 30 to 32 g/dL) is most likely not clinically significant; however, it should be interpreted with caution in correlation with other red cell parameters and the patient's clinical condition. RDW13.311.0 - 15.0 %QUESTPLATELET LLPEM788534 - 400 Thousand/qOTXTFVITK96.17.5 - 12.5 fLQUESTABSOLUTE NEUTROPHILS5,4881,500 - 7,800 cells/uLQUESTABSOLUTE NFDQEDEWCKM996(L)850 - 3,900 cells/uLQUESTABSOLUTE MIBZLMOSD826856 - 950 cells/uLQUESTABSOLUTE JCSEQOODHCU01784 - 500 cells/uLQUESTABSOLUTE RQAEOQWNF248 - 200 cells/bNDMDLSLMMSPMPUBKY03.3%QUESTLYMPHOCYTES8.5%RGMMHUJABKLXFA24.8%QUEST EOSINOPHILS2.7%QUESTBASOPHILS0.7%QUESTSpecimen (Source)Anatomical Location / LateralityCollection Method / VolumeCollection TimeReceived TimeBloodVenous blood specimen / Drzuykt6110/21/2024 10:58 AM EDT10/21/2024 10:58 AM EDT Narrative Resulting Agency Comment Performing Organization Information ?Site ID: QPT ?Name: [employer] [facility] ?Address: [address] [place] [address], [address] [place] [address] ?Director: Placido Mas MD Authorizing ProviderResult TypeResult StatusChristy A SkillWiz BLOOD ORDERABLESFinal ResultPerforming OrganizationAddFairmount Behavioral Health Systemty/[facility] CodePhone Number QUEST * Uric acid (10/21/2024 10:58 AM EDT)ComponentValueRef RangeTest MethodAnalysis TimePerformed AtPathologist SignatureURIC ACID4.94.0 - 8.0 mg/dLQUESTComment: Therapeutic target for gout patients: <6.0 mg/dL ?? Specimen (Source)Anatomical Location / LateralityCollection Method / Volume Collection TimeReceived TimeBloodVenous blood specimen / Mqsrhky4410/21/2024 10:58 AM EDT10/21/2024 10:58 AM EDT Narrative Resulting Agency Comment Performing Organization Information ?Site ID: QPT ?Name: [employer] [facility] ?Address: [address] [place] [address], [address] [place] [address] ?Director: Placido Mas MD Authorizing ProviderResult TypeResult StatusChristy Jacque SkillWiz BLOOD ORDERABLESFinal ResultPerforming OrganizationAddressty/[facility] HospitalPhone Number QUEST * (ABNORMAL) Comprehensive metabolic panel (10/21/2024 10:58 AM EDT)Component ValueRef RangeTest MethodAnalysis TimePerformed AtPathologist SignatureGlucose 122(H)65 - 99 mg/dLQUESTComment: ? Fasting reference interval For someone without known diabetes, a glucose value between 100 and 125 mg/dL is consistent with prediabetes and should be confirmed with a follow-up test. PQV594 - 25 mg/dLQUESTCreatinine1.53(H)0.70 - 1.28 mg/zLLRZSWQGXE61(L)> OR = 60 mL/min/1.31k0PSYISDTE/CREATININE EGWCH943 - 22 (calc)GFHUUCckomk159901 - 146 mmol/LQUESTPotassium, Bld3.53.5 - 5.3 mmol/HLTMEXAmvucoyv59(L)98 - 110 mmol/L QUESTCarbon Mvxakep4777 - 32 mmol/LQUESTCalcium8.88.6 - 10.3 mg/dLQUESTPROTEIN, TOTAL7.76.1 - 8.1 g/dLQUESTALBUMIN3.73.6 - 5.1 g/dLQUESTGLOBULIN4.0(H)1.9 - 3.7 g/dL (calc)QUESTALBUMIN/GLOBULIN RATIO0.9(L)1.0 - 2.5 (calc)QUESTBILIRUBIN, TOTAL0.90.2 - 1.2 mg/dLQUESTALKALINE MSWDAOPVHFE10123 - 144 U/GORJVXITS9521 - 35 U/TADXXANPF99 - 46 U/LQUESTSpecimen (Source)Anatomical Location / Laterality Collection Method / VolumeCollection TimeReceived TimeBloodVenous blood specimen / Unxkrqp4710/21/2024 10:58 AM EDT10/21/2024 10:58 AM EDT Narrative Resulting Agency Comment Performing Organization Information ?Site ID: QPT ?Name: [employer] [facility] ?Address: [address] [place] [phone] ?Director: Placido Mas MD Authorizing ProviderResult TypeResult StatusChristy Jacque Gutierrez [facility] BLOOD ORDERABLESFinal ResultPerforming OrganizationAddressCity/State/ZIP CodePhone Number QUEST * (ABNORMAL) PSA (10/21/2024 10:57 AM EDT)ComponentValueRef RangeTest Method Analysis TimePerformed AtPathologist SignaturePSA, TOTAL5.32(H)< OR = 4.00 ng/mLQUESTComment: The total PSA value from this assay system is standardized against the WHO standard. The test result will be approximately 20% lower when compared to the equimolar-standardized total PSA (Vane Nallen). Comparison of serial PSA results should be interpreted with this fact in mind. This test was performed using the Siemens chemiluminescent method. Values obtained from different assay methods cannot be used interchangeably. PSA levels, regardless of value, should not be interpreted as absolute evidence of the presence or absence of disease. Specimen (Source)Anatomical Location / LateralityCollection Method / Volume Collection TimeReceived TimeBloodVenous blood specimen / Xwxjlaj5310/21/2024 10:57 AM EDT10/21/2024 10:58 AM EDT Narrative Resulting Agency Comment Performing Organization Information ?Site ID: QPT ?Name: [facility] [employer] [facility] ?Address: [facility] [place] , [address] [place] [phone] ?Director: Placido Mas MD Authorizing ProviderResult TypeResult StatusDenise Cade MDLAB BLOOD ORDERABLESFinal ResultPerforming OrganizationAddressCity/State/ZIP CodePhone Number QUEST * [facility] PROT SERPL-MCNC (10/15/2024 10:40 AM EDT)ComponentValueRef RangeTest MethodAnalysis TimePerformed AtPathologist SignatureCCF PROT SERPL-MCNC7.36.3 - 8.0 g/dLCCFSpecimen (Source)Anatomical Location / LateralityCollection Method / VolumeCollection TimeReceived Time10/15/2024 10:40 AM EDT10/15/2024 1:44 PM EDT Narrative CLINISYNC - 10/15/2024 6:47 PM EDT Specimen Type: BLOOD SPECIMEN Ordering Facility: [facility] ?Address: [address] [place] [address] Original Ordering Provider: PUALA WANG Authorizing ProviderResult TypeResult StatusGeneric External Data Provider CLINISYNCMather Hospitalal ResultPerforming OrganizationAddressCity/[facility]/ZIP CodePhone Number CLINISYNC [facility] [address] [facility] [place] [address] * (ABNORMAL) [facility] IMMUNOGLOBULINS LUCIO (10/15/2024 10:40 AM EDT)ComponentValueRef RangeTest MethodAnalysis TimePerformed AtPathologist SignatureCCF IGG SERPL-EJXH912(L)700 - 1,600 mg/dLCCFCCF IGA SERPL-MCNC12(L)70 - 400 mg/dLCCF [facility] IGM SERPL-MCNC2,758(H)40 - 230 mg/dLCCFSpecimen (Source)Anatomical Location / LateralityCollection Method / VolumeCollection TimeReceived Time 10/15/2024 10:40 AM EDT10/15/2024 7:06 PM EDT Narrative CLINISYNC - 10/16/2024 10:09 PM EDT Specimen Type: BLOOD SPECIMEN Ordering Facility: [facility] ?Address: [address] [place] [address] Original Ordering Provider: PAULA WANG Authorizing ProviderResult TypeResult StatusGeneric External Data Provider CLINISYNCFinal ResultPerforming OrganizationAddressCity/State/ZIP CodePhone Number CLINISYNC [facility] [address] [facility] [place] [address] [place] [address] * (ABNORMAL) [facility] CBC W AUTO DIFF BLD (10/15/2024 10:40 AM EDT)ComponentValueRef RangeTest MethodAnalysis TimePerformed AtPathologist SignatureCCF WBC # BLD AUTO6.343.70 - 11.00 k/uLCCFCCF RBC # BLD AUTO3.75(L)4.20 - 6.00 m/uLCCFCCF HGB BLD-MCNC11.3(L)13.0 - 17.0 g/dLCCFCCF HCT VFR BLD AUTO35.0(L)39.0 - 51.0 % CCFCCF MCV RBC AUTO93.380.0 - 100.0 fLCCFCCF MCH RBC QN AUTO30.126.0 - 34.0 pg CCFCCF MCHC RBC AUTO-MCNC32.330.5 - 36.0 g/dLCCFCCF RDW RBC-RTO14.011.5 - 15.0 %CCFCCF PLATELET # BLD [id number] - 400 k/uLCCFCCF PMV BLD AUTO9.79.0 - 12.7 fLCCFCCF NEUTROPHILS/LEUK NFR BLD AUTO75.4%CCFCCF NEUTROPHILS # BLD AUTO4.78 1.45 - 7.50 k/uLCCFCCF LYMPHOCYTES/LEUK NFR BLD AUTO9.5%CCFCCF LYMPHOCYTES # BLD AUTO0.60(L)1.00 - 4.00 k/uLCCFCCF MONOCYTES/LEUK NFR BLD AUTO12.6%CCFCCF MONOCYTES # BLD AUTO0.80<0.87 k/uLCCFCCF EOSINOPHIL/LEUK NFR BLD AUTO1.4%CCF [facility] EOSINOPHIL # BLD AUTO0.09<0.46 k/uLCCFCCF BASOPHILS/LEUK NFR BLD AUTO0.6% CCFCCF BASOPHILS # BLD AUTO0.04<0.11 k/uLCCFIMM GRANULOCYTES/LEUK NFR BLD AUTO 0.5%CCFIMM GRANULOCYTES # BLD AUTO0.03<0.10 k/uLCCFCCF NRBC/100 WBC BLD-RTO0.0 /100 WBCCCFCCF NRBC # BLD AUTO<0.01<0.01 k/uLCCFCCF DIFFERENTIAL METHOD BLD AutoCCFSpecimen (Source)Anatomical Location / LateralityCollection Method / VolumeCollection TimeReceived Time10/15/2024 10:40 AM EDT10/15/2024 10:40 AM EDT Narrative CLINISYNC - 10/15/2024 10:45 AM EDT Specimen Type: BLOOD SPECIMEN Ordering Facility: [facility] ?Address: [address] [place] [address] Original Ordering Provider: PAULA WANG Authorizing ProviderResult TypeResult StatusGeneric External Data Provider CLINISYNCFinal ResultPerforming OrganizationAddressCity/State/ZIP CodePhone Number CLINISYNC [facility] [address] [place] [address] * ALL KAPPA/LAMBDA FREE SERUM (10/15/2024 10:40 AM EDT)ComponentValueRef Range Test MethodAnalysis TimePerformed AtPathologist SignatureCCF KAPPA LC FREE SER-MCNC11.13.3 - 19.4 mg/LCCFComment: Rarely, increased serum free light chains levels may not be detected or accurately quantified due to prozone phenomenon or in high viscosity samples using this immunoturbidimetric assay. Correlation with other laboratory results and clinical findings is recommended. The [place] Free Light Chain was performed using the Binding Site Optilite immunoturbidimetric method. Result obtained with different assay methods or kits cannot be used interchangeably. [facility] LAMBDA LC FREE SERPL-MCNC6.95.7 - 26.3 mg/LCCFComment: Rarely, increased serum free light chains levels may not be detected or accurately quantified due to prozone phenomenon or in high viscosity samples using this immunoturbidimetric assay. Correlation with other laboratory results and clinical findings is recommended. The Lambda Free Light Chain was performed using the Binding Site Optilite immunoturbidimetric method. Result obtained with different assay methods or kits cannot be used interchangeably. ?? [facility] KAPPA LC/LAMBDA SER1.610.26 - 1.65CCFSpecimen (Source)Anatomical Location / LateralityCollection Method / VolumeCollection TimeReceived Time10/15/2024 10:40 AM EDT10/15/2024 7:06 PM EDT Narrative CLINISYNC - 10/16/2024 3:30 PM EDT Specimen Type: BLOOD SPECIMEN Ordering Facility: [facility] ?Address: [address] [place] [address] Original Ordering Provider: PAULA WANG Authorizing ProviderResult TypeResult StatusGeneric External Data Provider CLINISYNCFinal ResultPerforming OrganizationAddressCity/State/ZIP CodePhone Number CLINISYNC [facility] [address] [facility] [place] [address] [address] [place] [address] * (ABNORMAL) [facility] COMP METAB 2000 PNL SERPL (10/15/2024 10:40 AM EDT)Component ValueRef RangeTest MethodAnalysis TimePerformed AtPathologist SignatureCCF PROT SERPL-MCNC7.46.3 - 8.0 g/dLCCFCCF ALBUMIN SERPL-MCNC3.6(L)3.9 - 4.9 g/dL CCFCCF CALCIUM SERPL-MCNC8.88.5 - 10.2 mg/dLCCFCCF BILIRUB SERPL-MCNC0.60.2 - 1.3 mg/dLCCFCCF ALP SERPL-LNRJ686(H)38 - 113 U/LCCFCCF AST SERPL-CCNC13(L)14 - 40 U/LCCFCCF ALT SERPL-OSOS4196 - 54 U/LCCFCCF GLUCOSE SERPL-YMWL227(H)74 - 99 mg/dLCCFComment: The [place] Diabetes Association (ADA) provides guidance for cutoff values for fasting glucose andrandom glucose. The ADA defines fasting as no caloric intake for at least 8 hours. Fasting plasma glucose results between 100 to 125 mg/dL indicate increased risk for diabetes (prediabetes). Fasting plasma glucose results greater than or equal to 126 mg/dL meet the criteria for diagnosis of diabetes. In the absence of unequivocal hyperglycemia, results should be confirmed by repeat testing. In a patient with classic symptoms of hyperglycemia or hyperglycemic crisis, random plasma glucose results greater than or equal to 200 mg/dL meet the criteria for diagnosis of diabetes. Reference: Standards of Medical Care in Diabetes 2016, [place] [employer]. Diabetes Care. 2016.39(Suppl 1). [facility] BUN SERPL-TNTF688 - 24 mg/dLCCFCCF CREAT SERPL-MCNC1.60(H)0.73 - 1.22 mg/dL CCFCCF SODIUM SERPL-ODJJ009994 - 144 mmol/LCCFCCF POTASSIUM SERPL-SCNC3.93.7 - 5.1 mmol/LCCFCCF CHLORIDE SERPL-SCNC97(L)98 - 107 mmol/LCCFCCF CO2 SERPL-SCNC29 22 - 30 mmol/LCCFCCF ANION GAP SERPL-SDVJ172 - 15 mmol/LCCFEGFRCR SERPLBLD CKD- EPI 732934(L)>=60 mL/min/1.73m???CCFComment:Estimated Glomerular Filtration Rate (eGFR) is calculated using the 2020 CKD-EPI creatinine equation. This equation utilizes serum creatinine, sex, and age as parameters. The creatinine assay has traceable calibration to isotope dilution-mass spectrometry. Refer to KDIGO guidelines for clinical interpretation. In patients with unstable renal function, e.g. those with acute kidney injury, the eGFRmay not accurately reflect actual GFR.Specimen (Source)Anatomical Location / LateralityCollection Method / VolumeCollection TimeReceived Time10/15/2024 10:40 AM EDT10/15/2024 10:40 AM EDT Narrative CLINISYNC - 10/15/2024 11:13 AM EDT Specimen Type: BLOOD SPECIMEN Ordering Facility: [facility] ?Address: [address] [place] [address] Original Ordering Provider: PAULA WANG Authorizing ProviderResult TypeResult StatusGeneric External Data Provider CLINISYNCFinal ResultPerforming OrganizationAddressCity/State/ZIP CodePhone Number CLINISYNC [facility] [address] [place] [address] * (ABNORMAL) [facility] IMMUNOFIXATION SCREEN, SERUM (10/15/2024 10:40 AM EDT)Component ValueRef RangeTest MethodAnalysis TimePerformed AtPathologist SignatureCCF MPA RESULTM protein is present.(A)No M protein is identified.[facility] INTERPRETATION ([facility])Atypical restricted bands are present in the IgM and kappa regions. Consistent with IgM kappa monoclonal gammopathy.[facility] STAFF REVIEW ([facility]) Reviewed by Betito Cox MD, Ph.D ([id number])CCFSpecimen (Source)Anatomical Location / LateralityCollection Method / VolumeCollection TimeReceived Time 10/15/2024 10:40 AM EDT10/15/2024 7:06 PM EDT Narrative CLINISYNC - 10/20/2024 6:46 AM EDT Specimen Type: BLOOD SPECIMEN Ordering Facility: [facility] ?Address: [address] [place] [address] Original Ordering Provider: PAULA WANG Authorizing ProviderResult TypeResult StatusGeneric External Data Provider CLINISYNCFinal ResultPerforming OrganizationAddressCity/State/ZIP CodePhone Number [address] [place] [address] * (ABNORMAL) [facility] PROTEIN ELECTROPHORESIS SERUM (P) (10/15/2024 10:40 AM EDT) ComponentValueRef RangeTest MethodAnalysis TimePerformed AtPathologist SignatureALBUMIN SERPL ELPH-MCNC3.31(L)3.43 - 5.41 g/dLCCFCCF ALPHA1 GLOB SERPL ELPH-MCNC0.46(H)0.18 - 0.43 g/dLCCFCCF ALPHA2 GLOB SERPL ELPH-MCNC0.66 0.42 - 0.98 g/dLCCFCCF B-GLOBULIN SERPL ELPH-MCNC0.640.61 - 1.17 g/dLCCFGAMMA GLOB SERPL ELPH-MCNC2.23(H)0.53 - 1.51 g/dLCCFCCF PROT PATTERN SERPL ELPH-IMP An M protein is identified on protein electrophoresis.(A)No definitive M protein is identified on protein electrophoresis.[facility] INTERPRETATION COMMENT FOR PROTEIN ELECTROPHORESISSee separate immunofixation report for characterization of monoclonal gammopathy.[facility] M-PROTEIN LOCATIONGamma Fraction 1CCFCCF M PROTEIN SERPL ELPH-MCNC1.60(H)<=0.00 g/dLCCFCCF SPE STAFF REVIEWReviewed by Betito Cox MD, Ph.D ([id number])CCFSpecimen (Source) Anatomical Location / LateralityCollection Method / VolumeCollection Time Received Time10/15/2024 10:40 AM EDT10/15/2024 7:06 PM EDT Narrative MUSA - 10/20/2024 10:14 AM EDT Specimen Type: BLOOD SPECIMEN Ordering Facility: [facility] ?Address: [address] [place] [address] Original Ordering Provider: PAULA WANG Authorizing ProviderResult TypeResult StatusGeneric External Data Provider CLINISYNCFinal ResultPerforming OrganizationAddressCity/State/ZIP CodePhone Number CLINISYNC [facility] [address] [facility] [place] [phone] * POCT glycosylated hemoglobin (Hb A1C) docked device (08/26/2024 11:51 AM EDT) ComponentValueRef RangeTest MethodAnalysis TimePerformed AtPathologist SignatureHemoglobin A1C6.3Specimen (Source)Anatomical Location / Laterality Collection Method / VolumeCollection TimeReceived TimeBloodVenous blood specimen / Ncjwjbw4908/26/2024 11:51 AM EDT Narrative Authorizing ProviderResult TypeResult Emanuel Mercer NPPOINT OF CARE TEST ENTER/EDIT ORDERABLESFinal Result * Microalbumin / creatinine, urine ratio (03/21/2024 9:15 AM EST)ComponentValue Ref RangeTest MethodAnalysis TimePerformed AtPathologist SignatureCREATININE, RANDOM BJBZP7315 - 320 mg/dLQUESTALBUMIN, URINE1.2See Note: mg/dLQUESTComment: Reference Range: Reference Range Not established ALBUMIN/CREATININE RATIO, RANDOM URINE17<30 mg/g creatQUESTComment: The ADA defines abnormalities in albumin excretion as follows: Albuminuria Category ?Result (mg/g creatinine) Normal to Mildly increased <30 Moderately increased ? 30-299 Severely increased > OR = 300 The ADA recommends that at least two of three specimens collected within a 3-6 month period be abnormal before considering a patient to be within a diagnostic category. Specimen (Source)Anatomical Location / LateralityCollection Method / Volume Collection TimeReceived TimeUrineUrine specimen obtained by clean catch procedure / Fwyvfrp1703/21/2024 9:15 AM EST03/21/2024 4:36 PM EST Narrative Resulting Agency Comment Performing Organization Information ?Site ID: [id number] ?Name: [facility] ?Address: [facility] [address] , [address] [place] [address] ?Director: Placido Mas MD Authorizing ProviderResult TypeResult StatusDenise Cade MDLAB URINE ORDERABLESFinal ResultPerforming OrganizationAddressCity/State/ZIP CodePhone Number [facility] * Diabetic Retinopathy Screening - OU - Both Eyes (10/31/2023 10:30 AM EDT) Anatomical RegionLateralityModalityHeadOther Narrative Authorizing ProviderResult TypeResult Bud Cade MDOPHTH PHOTOGRAPHY Final Result * Colonoscopy (07/16/2020 12:00 PM EDT)Anatomical RegionLateralityModality EndoscopySpecimen (Source)Anatomical Location / LateralityCollection Method / VolumeCollection TimeReceived Time07/16/2020 12:00 PM EDT Narrative 07/16/2020 12:00 PM EDT PERFORMED AT [facility] LOCATION:[id number] Procedure Note CONVERSION, GENERIC - 06/28/2022 PERFORMED AT [facility] LOCATION:[id number] Authorizing ProviderResult TypeResult Bud Cade MDENDOSCOPY PROCEDURE ORDERABLESFinal Result from Last 3 Months or Most Recently Relevant to Health Maintenance Insurance Care Teams Team MemberRelationshipSpecialtyStart Date Denise Cade MD [address] [facility], [place] [id number] PCP - Tino ND02/12/21 Denise Cade MD [address] [facility] [place], [place] [id number] PCP - GeneralFamily Medicine07/13/22 Terrie Martin DO [address] [place] [address] Referring PhysicianNeurology05/08/23 Sarkis Raymundo MD [address] [place] [address] Referring PhysicianNeurology2 Denise Alarcon, RN [address] [place] [address] Reg[facility] Nurse[facility] Medicine07/24/24
--- OUTSIDE RECORDS SUMMARY | 2024-12-26 04:21 | XMS_ITS | Encounter Summary ---
Author Organization [facility] Address [address] [facility] [place] [address] Care Team Providers Care Robotics Systems Engineer Name Role Phone Denise Cade MD Unavailable [phone] Denise Cade MD Primary Care Provider [phone] Terrie Martin DO Unavailable [phone] Sarkis Raymundo MD Unavailable [phone] Denise Alarcon RN Unavailable [phone] Encounter Details DateTypeDepartmentCare Team (Latest Contact Info)Imyydtpqwjr51/04/2025Travel Social History Tobacco UseTypesPacks/DayYears UsedDateSmoking Tobacco: FormerCigarettes Smokeless Tobacco: NeverAlcohol UseStandard Drinks/WeekCommentsNever0 (1 standard drink = 0.6 oz pure alcohol)Caffeine intake: 1 cups per dayPHQ-2Answer Date RecordedPatient Health Questionnaire-2 [id number] and Gender InformationValueDate RecordedSex Assigned at BirthNot on fileLegal SexMale 04/26/2022 7:10 PM EDTGender WwvwntwoWdqe13/15/2023 7:10 PM EDTSexual OrientationNot on filedocumented as of this encounter Plan of Treatment DateTypeDepartmentCare Team (Latest Contact Info)Emsdezwyedq62/22/2025 10:00 AM ESTOffice Visit [facility] [address] [facility] [address] [address] [place] [address] David Booker MD [address] [facility] [address] [place] [address] 03/30/2025 8:30 AM ESTProcedure Visit [facility] [address] [place] [id number] Sarkis Lo, DPM [address] [place], [place] [phone] documented as of this encounter Visit Diagnoses Not on filedocumented in this encounter Additional Health Concerns AssessmentNoted TimePQ-9 Depression Total Score: 2:00 PM EDT documented as of this encounter Care Teams Team MemberRelationshipSpecialtyStart DateEnd Date Denise Cade MD [address] [facility] [place] [address] PCP - Stephan MA1 Denise Cade MD [address] [place] [address] PCP - GeneralFamily Medicine07/13/22 Terrie Martin DO [address] [place] [address] Referring PhysicianNeurology3 Sarkis Raymundo MD [address] [place] [address] Referring PhysicianNeurology2 Denise Alarcon, RN [address] [place] [address] Registered NurseFamily Medicine07/24/24documented as of this encounter
--- OUTSIDE RECORDS SUMMARY | 2024-12-26 04:22 | XMS_ITS | Encounter Summary ---
Author Organization [facility] Address [address] [place] [address] Care Team Providers Care Composite Bond Technician Name Role Phone Denise Cade MD Unavailable [phone] Denise Cade MD Primary Care Provider Terrie Martin DO Unavailable [phone] Sarkis Raymundo MD Unavailable [phone] Denise Alarcon RN Unavailable [phone] Encounter Details DateTypeDepartmentCare Team (Latest Contact Info)Yrplidajdev72/03/2025amboo flowsheet [facility] [address] [place] [address] David Booker MD [address] [facility] [address] [id number] Social History Tobacco UseTypesPacks/DayYears UsedDateSmoking Tobacco: FormerCigarettes Smokeless Tobacco: NeverAlcohol UseStandard Drinks/WeekCommentsNever0 (1 standard drink = 0.6 oz pure alcohol)Caffeine intake: 1 cups per dayPHQ-2Answer Date RecordedPatient Health Questionnaire-2 [id number] and Gender InformationValueDate RecordedSex Assigned at BirthNot on fileLegal SexMale 04/26/2022 7:10 PM EDTGender FpbgkhuoSrak59/15/2023 7:10 PM EDTSexual OrientationNot on filedocumented as of this encounter Plan of Treatment DateTypeDepartmentCare Team (Latest Contact Info)Hjyutzooxyk80/22/2025 10:00 AM ESTOffice Visit [facility] [address] [place] [address] David Booker MD [address] [facility] [address], [place] [address] 03/30/2025 8:30 AM ESTProcedure Visit [facility] [address] [place] [phone] Sarkis Lo, DPDallas [address] [place], [place] [address] documented as of this encounter Visit Diagnoses Not on filedocumented in this encounter Additional Health Concerns AssessmentNoted TimePQ-9 Depression Total Score: 2:00 PM EDT documented as of this encounter Care Teams Team MemberRelationshipSpecialtyStart DateEnd Date Denise Cade MD [address] [place] [address] PCP - [place] MA02/12/21 Denise Cade MD [address] [place] [address] PCP - Generalmily Medicine07/13/22 Terrie Martin DO [address] [place] [address] Referring PhysicianNeurology05/08/23 Sarkis Raymundo MD [address] [place] [address] Referring PhysicianNeurolog04/01/24 Denise Alarcon, JUAN JOSE [address] [place] [address] Registered NurseFamily 07/24/24documented as of this encounter
== END 2024-12-26 06:06 | disposition home or self-care (01) ==
PROVIDERS: Emergency Provider Emergency Medicine; PCP Family Medicine
DX: S43.004A Unspecified dislocation of right shoulder joint, initial encounter (principal); S00.93XA Contusion of unspecified part of head, initial encounter; R56.9 Unspecified convulsions; Z79.899 Other long term (current) drug therapy; W18.39XA Other fall on same level, initial encounter; Y93.9 Activity, unspecified; Y92.002 Bathroom of unspecified non-institutional (private) residence as the place of occurrence of the external cause
CPT/HCPCS: 70450; 72125; 73030; 76376; 99284